=== PATIENT | female | born 1990 | race Caucasian/White ===

== ENCOUNTER 2017-11-09 17:08 | Emergency (ER) | payer SELFPAY ==
[~2017-11-09] VITALS: Ht 167.6 cm; Wt 72.0 kg
[2017-11-09] MEDS ORDERED: SODIUM CHLOR 0.9% 1000 ML INJ 1,000 ML IV ONE (17:15)
[2017-11-09] MEDS ORDERED: KETOROLAC TROMETHAMINE 30 MG/ML (IVP) VIAL IV PUSH ONE (17:15)
[2017-11-09 17:18] VITALS: BP 135/93; PULSE 90; RESP 16; TEMP 98.4; O2SAT 99
--- NOTE | 2017-11-09 17:22 | PD ---
HPI Chief Complaint: Back pain, nausea vomiting Time Seen by Provider: 17:11 Travel History International Travel<30 days: No Contact w/Intl Traveler<30days: No Traveled to known affect area: No History of Present Illness HPI 27-year-old female complains of back pain, low abdominal pain, nausea vomiting. Patient states that she started having low back pain and low abdominal pain 3 days ago. Patient states the pain and cramping pain localized to lower abdomen and mid back area. Patient denies any pain radiation. Patient started having nausea vomiting today. Patient denies any fever chills. Patient states that she has intermittent dysuria and frequency for the past 3 days. Patient denies any vaginal discharge or bleeding. Patient has Mirena in place. Patient denies any recent injury. EMS was called. Patient was given IV fluids and Zofran [address] IV [address] the way to the ED. PFSH Social History Tobacco Use: No Allergies-Medications (Allergen,Severity, Reaction): Coded Allergies: cephalexin (Verified Allergy, Intermediate, 11/09/17) latex (Verified Allergy, Unknown, 11/09/17) Reported Meds & Prescriptions Reported Meds & Active Scripts Active Robaxin (Methocarbamol) 750 Mg Tab 750 Mg PO QID Mobic (Meloxicam) 15 Mg Tab 15 Mg PO DAILY Phenergan (Promethazine HCl) 25 Mg Tablet 25 Mg PO Q6H PRN Zofran Odt (Ondansetron Odt) 4 Mg Tab 4 Mg SL Q6HR PRN Review of Systems General / Constitutional: No: Fever Eyes: No: Visual changes HENT: No: Headaches Cardiovascular: No: Chest Pain or Discomfort Respiratory: No: Shortness of Breath Gastrointestinal: Positive: Nausea, Vomiting, Abdominal Pain Genitourinary: No: Dysuria Musculoskeletal: No: Pain Skin: No Rash Neurologic: No: Weakness Psychiatric: No: Depression Endocrine: No: Polydipsia Hematologic/Lymphatic: No: Easy Bruising Physical Exam Narrative GENERAL: Well-nourished, well-developed patient. SKIN: Focused skin assessment warm/dry. HEAD: Normocephalic. EYES: No scleral icterus. No injection or drainage. NECK: Supple, trachea midline. No JVD or lymphadenopathy. CARDIOVASCULAR: Regular rate and rhythm without murmurs, gallops, or rubs. RESPIRATORY: Breath sounds equal bilaterally. No accessory muscle use. GASTROINTESTINAL: Abdomen soft, nondistended. Patient has moderate diffuse tenderness in lower abdomen. No rebound tenderness. No mass. MUSCULOSKELETAL: No cyanosis, or edema. BACK: Positive right CVA tenderness. Moderate diffuse tenderness over lumbar area. Negative straight leg raising. Neurologic exam normal. Data Data Last Documented VS Vital Signs Date Time Temp Pulse Resp B/P (MAP) Pulse Ox O2 Delivery O2 Flow Rate FiO2 11/09/17 20:16 89 16 112/79 (90) 99 11/09/17 17:18 98.4 Room Air Orders Orders Sodium Chlor 0.9% 1000 Ml Inj (Ns 1000 M (11/09/17 17:15) Ketorolac Inj (Toradol Inj) (11/09/17 17:15) Complete Blood Count With Diff (11/09/17 17:14) Comprehensive Metabolic Panel (11/09/17 17:14) Lipase (11/09/17 17:14) Urinalysis - C+S If Indicated (11/09/17 17:14) Beta Hcg (Quant/Titer) (11/09/17 17:14) Ct Abd/Pel W Iv Contrast(Rout) (11/09/17 17:14) Iv Access Insert/Monitor (11/09/17 17:14) Ecg Monitoring (11/09/17 17:14) Oximetry (11/09/17 17:14) Ed Urine Pregnancytest Poc (11/09/17 17:14) Metoclopramide Inj (Reglan Inj) (11/09/17 18:15) Diphenhydramine Inj (Benadryl Inj) (11/09/17 18:15) Iohexol 350 Inj (Omnipaque 350 Inj) (11/09/17 18:40) Ed Discharge Order (11/09/17 19:38) Labs Laboratory Tests Test 11/09/17 17:20 11/09/17 17:40 White Blood Count 5.5 TH/MM3 Red Blood Count 4.82 MIL/MM3 Hemoglobin 15.3 GM/DL Hematocrit 44.2 % Mean Corpuscular Volume 91.6 FL Mean Corpuscular Hemoglobin 31.6 PG Mean Corpuscular Hemoglobin Concent 34.5 % Red Cell Distribution Width 13.7 % Platelet Count 201 TH/MM3 Mean Platelet Volume 7.3 FL Neutrophils (%) (Auto) 76.7 % Lymphocytes (%) (Auto) 14.8 % Monocytes (%) (Auto) 7.6 % Eosinophils (%) (Auto) 0.4 % Basophils (%) (Auto) 0.5 % Neutrophils # (Auto) 4.3 TH/MM3 Lymphocytes # (Auto) 0.8 TH/MM3 Monocytes # (Auto) 0.4 TH/MM3 Eosinophils # (Auto) 0.0 TH/MM3 Basophils # (Auto) 0.0 TH/MM3 CBC Comment DIFF FINAL Differential Comment Blood Urea Nitrogen 7 MG/DL Creatinine 0.73 MG/DL Random Glucose 113 MG/DL Total Protein 8.5 GM/DL Albumin 4.2 GM/DL Calcium Level 9.5 MG/DL Alkaline Phosphatase 147 U/L Aspartate Amino Transf (AST/SGOT) 345 U/L Alanine Aminotransferase (ALT/SGPT) 114 U/L Total Bilirubin 2.6 MG/DL Sodium Level 132 MEQ/L Potassium Level 3.5 MEQ/L Chloride Level 97 MEQ/L Carbon Dioxide Level 20.3 MEQ/L Anion Gap 15 MEQ/L Estimat Glomerular Filtration Rate 94 ML/MIN Lipase 293 U/L Human Chorionic Gonadotropin, Quant LESS THAN 1 MIU/ML Urine Collection Type CLEAN CATCH Urine Color DARK-YELLOW Urine Turbidity CLEAR Urine pH 6.5 Urine Specific [place] 1.025 Urine Protein 100 mg/dL Urine Glucose (UA) NEG mg/dL Urine Ketones 40 mg/dL Urine Occult Blood SMALL Urine Nitrite POS Urine Bilirubin SMALL Urine Urobilinogen 1.0 MG/DL Urine Leukocyte Esterase TRACE Urine RBC 0-3 /hpf Urine WBC 0-2 /hpf Urine Squamous Epithelial Cells 6-8 /hpf Urine Bacteria OCC /hpf Microscopic Urinalysis Comment CULT NOT INDICATED Urine Collection Time 17:40 [facility] Medical Decision Making Medical Screen Exam Complete: Yes Emergency Medical Condition: Yes Interpretation(s) 18 10 PM. CBC WBC 5.5. 76 neutrophil. Sodium 132. Bicarb 20.3. Total bili 2.6. AST 345. ALT 114. Alkaline phosphatase 147. Beta-hCG negative. UA positive for ketones small blood positive nitrite positive for bilirubin. [address] scan of the abdomen and pelvis negative acute pathology. Fatty liver. Differential Diagnosis Differential diagnosis including cholecystitis, nephrolithiasis, pyelonephritis , colitis, bowel obstruction, ovarian cyst, ovarian torsion, ectopic . Narrative Course 27-year-old female with low abdominal pain and right flank antonieta And nausea vomiting. Normal saline solution 1 L IV bolus. Zofran 4 mg IV. Toradol 30 mg IV. Reglan 10 mg IV. Benadryl 25 mg IV. Diagnosis Primary Impression: Abdominal pain Qualified Codes: R10.30 - Lower abdominal pain, unspecified Additional Impressions: Transaminitis Gastroenteritis Patient Instructions: General Instructions Additional Instructions: Take medications as directed. Follow-up with personal physician. Return if worse. Follow-up with a project manager entertainment and media. Med/Other Pt SpecificInfo: Prescription(s) given Scripts Methocarbamol (Robaxin) 750 Mg Tab 750 MG PO QID for Muscle Spasm, #40 TAB 0 Refills Prov: Beni Doll MD 11/09/17 Meloxicam (Mobic) 15 Mg Tab 15 MG PO DAILY for Pain, #20 TAB 0 Refills Prov: Beni Doll MD 11/09/17 Promethazine (Phenergan) 25 Mg Tablet 25 MG PO Q6H Y for NAUSEA OR VOMITING, #12 TAB 0 Refills Prov: Beni Doll MD 11/09/17 Ondansetron Odt (Zofran Odt) 4 Mg Tab 4 MG SL Q6HR Y for Nausea/Vomiting, #12 TAB 0 Refills Prov: Beni Doll MD 11/09/17 Disposition: 01 DISCHARGE HOME Condition: Stable Beni Doll MD Nov 09, 2017 17:22
[2017-11-09 17:33] LABS: AUTOMATED NEUTROPHIL # 4.3 TH/MM3 (1.8-7.7); BASOPHIL % 0.5 % (0.0-2.0); EOSINOPHIL % 0.4 % (0.0-4.0); HEMATOCRIT 44.2 % (35.0-46.0); HEMOGLOBIN 15.3 GM/DL (11.6-15.3); LYMPH % 14.8 % (9.0-44.0); LYMPHOCYTE # 0.8 TH/MM3 (1.0-4.8); MEAN CELL VOLUME 91.6 FL (80.0-100.0); MEAN CORPUSCULAR HEMOGLOBIN 31.6 PG (27.0-34.0); MEAN CORPUSCULAR HGB CONC 34.5 % (32.0-36.0); MEAN PLATELET VOLUME 7.3 FL (7.0-11.0); MONO % 7.6 % (0.0-8.0); MONOCYTE # 0.4 TH/MM3 (0-0.9); NEUT % 76.7 % (16.0-70.0); PLATELET COUNT 201 TH/MM3 (150-450); RED BLOOD COUNT 4.82 MIL/MM3 (4.00-5.30); RED CELL DISTRIBUTION WIDTH 13.7 % (11.6-17.2); WHITE BLOOD COUNT 5.5 TH/MM3 (4.0-11.0)
[2017-11-09 17:45] LABS: CHLORIDE 97 MEQ/L (98-107); SODIUM (NA) 132 MEQ/L (136-145)
[2017-11-09 17:48] LABS: ALBUMIN 4.2 GM/DL (3.4-5.0); BICARBONATE 20.3 MEQ/L (21.0-32.0); CALCIUM 9.5 MG/DL (8.5-10.1)
[2017-11-09 17:49] LABS: BLOOD, URINE SMALL (NEG); GLUCOSE,URINE NEG (NEG); KETONE, URINE 40 mg/dL (NEG); NITRITE,URINE POS (NEG); PH, URINE 6.5 (5.0-8.5); URINE LEUKOCYTE ESTERASE TRACE (NEG)
[2017-11-09 17:49] LABS: BLOOD UREA NITROGEN 7 MG/DL (7-18); GLUCOSE,RANDOM 113 MG/DL (74-106)
[2017-11-09 17:51] LABS: ALT (GPT) 114 U/L (10-53); AST (GOT) 345 U/L (15-37); CREATININE 0.73 MG/DL (0.50-1.00); GLOMERULAR FILTRATION RATE 94 ML/MIN (>89)
[2017-11-09 17:53] LABS: TOTAL BILIRUBIN ADULT 2.6 MG/DL (0.2-1.0); TOTAL PROTEIN 8.5 GM/DL (6.4-8.2)
[2017-11-09 17:54] LABS: ALKALINE PHOSPHATASE 147 U/L (45-117)
[2017-11-09 17:59] LABS: BILIRUBIN, URINE SMALL (NEG)
[2017-11-09 18:00] LABS: URINE COLOR DARK-YELLOW (YELLW/STRAW)
[2017-11-09 18:02] LABS: BACTERIA, URINE OCC /hpf; RBC, URINE 0-3 /hpf (0-3); WBC, URINE 0-2 /hpf (0-5)
[2017-11-09] MEDS ORDERED: METOCLOPRAMIDE HCL 10 MG/2 ML VIAL IV PUSH ONE (18:15)
[2017-11-09] MEDS ORDERED: diphenhydrAMINE HCL 50 MG/ML VIAL IV PUSH ONE (18:15)
[2017-11-09] MEDS ORDERED: IOHEXOL 350 MG/ML 10 ML VIAL (for RAD DIAG) IVCONTRAST ONE (18:40)
--- NOTE | 2017-11-09 18:59 | RADRPT ---
EXAM DATE/TIME: 11/09/2017 18:35 [place] COMPARISON: No previous studies available for comparison. INDICATIONS : Lower abdominal pain radiating to mid back and painful urination. IV CONTRAST: 95 cc Omnipaque 350 (iohexol) IV ORAL CONTRAST: No oral contrast ingested. RADIATION DOSE: 6.75 CTDIvol (mGy) MEDICAL HISTORY : None SURGICAL HISTORY : None. ENCOUNTER: Initial ACUITY: 3 days PAIN SCALE: 5/10 LOCATION: lower quadrant TECHNIQUE: Volumetric scanning of the abdomen and pelvis was performed. Using automated exposure control and ad justment of the mA and/or kV according to patient size, radiation dose was kept as low as reasonably achievable to obtain optimal diagnostic quality images. DICOM format image data is available electro nically for review and comparison. FINDINGS: Lung bases are clear. Diffuse fatty infiltration of the liver. Spleen, adrenals, kidneys and pancreas unremarkable. No calcified gallstones. Intrauterine device present. No pelvic masses or free fluid. No acute bony abnormalities. CONCLUSION: 1. No acute findings. Diffuse fatty liver. Intrauterine device present. Keith Carbone MD on November 09, 2017 at 18:54 Board Certified Radiologist. This report was verified electronically.
[2017-11-09] MEDS ORDERED: ZOFR4TAB3 SL (19:20)
[2017-11-09] MEDS ORDERED: ROBA750T PO (19:20)
[2017-11-09] MEDS ORDERED: MOBI15TA PO (19:20)
[2017-11-09] MEDS ORDERED: PROM25TA10 PO (19:20)
[2017-11-09 20:16] VITALS: BP 112/79
== END 2017-11-09 20:30 | disposition home or self-care (01) ==
LOC: PHED 17:08
DX: K52.9 Noninfective gastroenteritis and colitis, unspecified (principal); R74.0 Nonspecific elevation of levels of transaminase and lactic acid dehydrogenase [LDH]; K76.0 Fatty (change of) liver, not elsewhere classified; R30.0 Dysuria; R35.0 Frequency of micturition; Z79.899 Other long term (current) drug therapy
CPT/HCPCS: 74177; 80053; 81001; 83690; 84702; 84703; 85025; 96361; 96374; 96375; 99284; J1200; J1885; J2765; J7030; Q9967

== ENCOUNTER 2018-02-07 16:47 | Inpatient (IN) ==
[2018-02-07 18:36] LABS: Bilirubin,Urine Moderate (Negative); Clarity,Urine Slightly Cloudy (Clear); Color,Urine Yellow (Yellw/Straw); Glucose,Urine (UA) Negative (Negative); Leukocyte Esterase,Urine Negative (Negative); Nitrite,Urine Negative (Negative); Specific Gravity,Urine Greater/Equal 1.030 (1.002-1.035)
[2018-02-07 18:44] LABS: Ictotest,Urine Positive (Negative)
[2018-02-07 18:47] LABS: RBC,Urine 0-3 /hpf (0-3)
[2018-02-07 18:51] LABS: Squamous Epithelial Cell,Urine Greater than 10 /hpf (0-5)
[2018-02-07 18:52] LABS: Bacteria,Urine Few /hpf; Hyaline Casts,Urine 0-3 /lpf (0-3); Mucus,Urine Few /lpf (Occasional)
[2018-02-07] MEDS ORDERED: Sod Chloride 0.9% Inj 1,000 ML IV.SIG ONE ×3 (20:22→21:54)
--- NOTE | 2018-02-07 20:56 | XR ---
EXAM DATE: 02/07/2018 8:54 PM EDT AGE/SEX: 27 years / Female INDICATIONS: Altered mental status. CLINICAL DATA: This is the patient's initial encounter. Patient reports that signs and symptoms have been present for 1 day and indicates a pain score of Nonresponsive. MEDICAL/SURGICAL HISTORY: None. None. COMPARISON: No prior exams available for comparison. FINDINGS: A single AP view of the chest demonstrates the lungs to be symmetrically aerated without evidence of mass, infiltrate or effusion. The cardiomediastinal contours are unremarkable. Osseous structures a re intact. Nipple rings CONCLUSION: Negative for acute process Electronically signed by: Julien Sullivan MD 02/07/2018 8:55 PM EDT
[2018-02-07 21:09] LABS: Baso % (Auto) 0.1 % (0.0-2.0); Eos % (Auto) 0.1 % (0.0-4.0); Hematocrit 48.9 % (35.0-46.0); Hemoglobin 16.5 gm/dL (11.6-15.3); Lymph # (Auto) 0.9 th/mm3 (1.0-4.8); Lymph % (Auto) 4.1 % (9.0-44.0); Mean Corpuscular HGB Conc 33.8 % (32.0-36.0); Mean Corpuscular Hemoglobin 35.2 pg (27.0-34.0); Mean Corpuscular Volume 104.2 fL (80.0-100.0); Mean Platelet Volume 8.1 fL (7.0-11.0); Mono # (Auto) 0.7 th/mm3 (0.0-0.9); Neut # (Auto) 20.4 th/mm3 (1.8-7.7); Neut % (Auto) 92.7 % (16.0-70.0); Platelet Count 668 th/mm3 (150-450); Red Blood Count 4.69 mil/mm3 (4.00-5.30); Red Cell Distribution Width 14.7 % (11.6-17.2)
[2018-02-07 21:12] LABS: Chloride 83 meq/L (98-107); Potassium 3.4 meq/L (3.5-5.1); Sodium 127 meq/L (136-145)
[2018-02-07 21:16] LABS: Albumin 4.6 g/dL (3.4-5.0); Anion Gap 39 meq/L (5-15); Blood Urea Nitrogen 8 mg/dL (7-18); Carbon Dioxide 5.3 meq/L (21.0-32.0); Glucose,Random 248 mg/dL (74-106)
[2018-02-07 21:19] LABS: Alanine Aminotransferase 94 U/L (10-53); Aspartate Aminotransferase 272 U/L (15-37); Glomerular Filtration Rate 38 mL/min (>89)
[2018-02-07 21:20] LABS: Total Protein 10.3 g/dL (6.4-8.2)
[2018-02-07 21:21] LABS: Alkaline Phosphatase 288 U/L (45-117); Lipase 9618 U/L (73-393)
--- NOTE | 2018-02-07 21:42 | ED ---
HPI General Chief complaint: Nausea/Vomiting/Diarrhea Stated complaint: Weakness/Nausea/Vomiting/Hard to Breathe Source: patient Mode of arrival: ambulatory Limitations: altered mental status History of Present Illness HPI Narrative: patient started blaming the use of propanolol as the reason she was feeling the way she was...which included, anxious, palpitations, as well as n/v/d with abd crampy pain MD complaint: nausea, vomiting and diarrhea Onset (ago): hour(s) (2) Description of Vomiting: watery Description of Diarrhea: watery Associated Abdominal Pain: Yes Radiation: does not radiate Context: possible food poisoning and new medication Associated symptoms: palpitation Related Data Home Medications Medication Instructions Recorded Confirmed levonorgestrel [Mirena] 02/07/18 propranolol 10 mg PO BID 02/07/18 02/10/18 Allergies Allergy/AdvReac Type Severity Reaction Status Date / Time cephalexin Allergy Intermediate UNKNOWN Verified 02/07/18 17:01 latex Allergy Unknown UNKNONW Verified 02/07/18 17:01 Review of Systems ROS Unobtainable unobtainable due to mental status PMFSH Medical History Medical History Anxiety (Acute) Depression (Acute) Occasional tremors (Acute) Seizures (Acute) Surgical History Surgical History History of placement of ear tubes (Acute) Social History Social History Substance History: No History of Abuse Smoking Status: Heavy tobacco smoker Tobacco Type: Cigarettes How Often Do You Have a Drink Containing Alcohol: 4 or more times a week Recent Travel in [facility] within the Last 8 Weeks: No Recent Out of Country Travel within the Last 8 Weeks: No Exam Narrative Exam Narrative: GENERAL: hyperventilating in apparent distress. SKIN: Warm and dry. HEAD: Atraumatic. Normocephalic. EYES: Pupils equal and round. No scleral icterus. No injection or drainage. ENT: No nasal bleeding or discharge. Mucous membranes dry NECK: Trachea midline. No JVD. CARDIOVASCULAR: Regular rhythm, tachycardic rate. no rubs or gallops RESPIRATORY: No accessory muscle use. Clear to auscultation. Breath sounds equal bilaterally. GASTROINTESTINAL: Abdomen soft, diffuse ttp , nondistended. No rebound or guarding MUSCULOSKELETAL: Extremities without clubbing, cyanosis, or edema. No obvious deformities. NEUROLOGICAL: Awake and alert. No obvious cranial nerve deficits. Motor grossly within normal limits. Five out of 5 muscle strength in the arms and legs. Normal speech. PSYCHIATRIC: Agitated, hyperventilating, difficulty focusing to answer questions Course Initial Documented Vital Signs Temperature 97.5 F L 02/07/18 16:55 Pulse Rate 140 H 02/07/18 16:55 Respiratory Rate 18 02/07/18 16:55 Blood Pressure 130/87 02/07/18 16:55 Pulse Oximetry 99 02/07/18 16:55 Last Documented Vital Signs Temperature 98.2 F 02/14/18 20:37 Pulse Rate 91 H 02/14/18 20:37 Respiratory Rate 18 02/14/18 20:37 Blood Pressure 114/72 02/14/18 20:37 Pulse Oximetry 96 02/14/18 20:37 Medical Decision Making MDM Narrative Medical decision making narrative: Aggregate critical care time was 60 minutes. Time to perform other separately billable procedures was not included in the critical care time. My time did not include minutes spent treating any other patients simultaneously or on activities that did not directly contribute to the patient's treatment. The services I provided to this patient were to treat and/or prevent clinically significant deterioration that could result in: [severe acidosis and ] I provided critical care services requiring my management, as noted below: Chart data review, documentation time, medication orders and management, vital sign assessments/reviewing monitor data, ordering and reviewing lab tests, ordering and interpreting/reviewing x-rays and diagnostic studies, care of the patient and discussion of the patient with the admitting physicians. Differential Diagnosis Differential Diagnosis: Dehydration versus pancreatitis versus hepatitis versus enteritis versus electrolyte abnormalities POC Test Results POC Urine Results: Negative Lab Data Lab results reviewed: Yes I reviewed the patient's lab results. Lab results narrative: CBC shows a leukocytosis of 22,000 with a left shift with 93%, elevated platelet count of 668,000 elevated MCV consistent with megaloblastic which is probably consistent with the patient's history of alcohol use Hemoconcentrated with a hemoglobin of 16.5/48.9 Normal TSH screening Negative hCG quant Patient has prerenal azotemia with a GFR of 38 creatinine 1.6 Head elevated AST of 272 with elevated ALT of 94 consistent with alcoholic hepatitis pattern Patient has hyponatremia 127 A bicarb of 5 Lipase consistent with pack otitis [place] 9618 ua is c/w uti Case was discussed at length with sponge clipper Dr. Michel, patient will be transferred to the main ICU, sponge clipper agrees with IV fluid resuscitation, bicarb administration and bicarb drip Result diagrams: 02/10/18 03:24 02/14/18 07:12 Lab Results 02/07/18 02/07/18 02/07/18 Range/Units 18:05 18:05 20:50 CBC w Diff Auto diff final WBC 22.0 H (4.0-11.0) th/mm3 RBC 4.69 (4.00-5.30) mil/mm3 Hgb 16.5 H (11.6-15.3) gm/dL Hct 48.9 H (35.0-46.0) % MCV 104.2 H (80.0-100.0) fL MCH 35.2 H (27.0-34.0) pg MCHC 33.8 (32.0-36.0) % RDW 14.7 (11.6-17.2) % Plt Count 668 H (150-450) th/mm3 MPV 8.1 (7.0-11.0) fL Prelim Diff (Auto) Neut % (Auto) 92.7 H (16.0-70.0) % Lymph % (Auto) 4.1 L (9.0-44.0) % Pitkin % (Auto) 3.0 (0.0-8.0) % Eos % (Auto) 0.1 (0.0-4.0) % Baso % (Auto) 0.1 (0.0-2.0) % Neut # (Auto) 20.4 H (1.8-7.7) th/mm3 Lymph # (Auto) 0.9 L (1.0-4.8) th/mm3 Pitkin # (Auto) 0.7 (0.0-0.9) th/mm3 Eos # (Auto) 0.0 (0.0-0.4) th/mm3 Baso # (Auto) 0.0 (0.0-0.2) th/mm3 WBC Differential . Seg Neuts % (Manual) (16-70) % Band Neuts % (Manual) (0-6) % Lymphocytes % (Manual) (9-44) % Monocytes % (Manual) (0-8) % Abs Neuts (Manual) (1.8-7.7) th/mm3 Differential Comment Platelet Estimate (Normal) Platelet Morphology (Normal) Puncture Site Patient Temperature O2 Saturation (90-100) % ABG pH (7.380-7.420) ABG pCO2 (38-42) mmHg ABG pO2 (61-120) mmHg ABG HCO3 (22-26) mmol/L ABG O2 Content (12.0-20.0) Vol % ABG Base Excess (-2-2) mmol/L ABG Methemoglobin (0-2) % Aki Test Hemoglobin (12.0-16.0) G/DL Carboxyhemoglobin (0-4) % O2 Delivery Device Inspired O2 % Critical Value Sodium (136-145) meq/L Potassium (3.5-5.1) meq/L Chloride (98-107) meq/L Carbon Dioxide (21.0-32.0) meq/L Anion Gap (5-15) meq/L BUN (7-18) mg/dL Creatinine (0.50-1.00) mg/dL Estimated GFR (>89) mL/min POC Glucose (68-110) mg/dl Random Glucose (74-106) mg/dL Osmolality (275-295) mosm/kg Lactic Acid (0.4-2.0) mmol/L Calcium (8.5-10.1) mg/dL Phosphorus (2.5-4.9) mg/dL Magnesium (1.5-2.5) mg/dL Total Bilirubin (0.2-1.0) mg/dL Direct Bilirubin (0.0-0.2) mg/dL Indirect Bilirubin (0.0-0.8) mg/dL AST (15-37) U/L ALT (10-53) U/L Alkaline Phosphatase (45-117) U/L Ammonia (11-32) mcmol/L Total Creatine Kinase (26-192) U/L CK-MB (CK-2) (0.5-3.6) ng/mL CK-MB (CK-2) % (0.0-4.0) % Total Protein (6.4-8.2) g/dL Albumin (3.4-5.0) g/dL Triglycerides (42-150) mg/dL Lipase (73-393) U/L Beta-Hydroxybutyric Acd (0.00-0.39) mmol/L TSH (0.358-3.740) uIU/mL Urine Color Yellow (Yellw/Straw) Urine Clarity Slightly cloudy (Clear) Urine pH 6.0 (5.0-8.5) Ur Specific Marty Greater/equal 1.030 (1.002-1.035) Urine Protein 300 or greater H (Neg-Trace) mg/dL Urine Glucose (UA) Negative (Negative) mg/dL Urine Ketones 80 or greater (Negative) mg/dL Urine Occult Blood Large H (Negative) Urine Nitrate Negative (Negative) Urine Bilirubin Moderate H (Negative) Urine Ictotest Positive H (Negative) Urine Urobilinogen 1.0 (Less than 2) mg/dL Ur Leukocyte Esterase Negative (Negative) Urine RBC 0-3 (0-3) /hpf Urine WBC 5-8 H (0-5) /hpf Ur Squamous Epith Cells Greater than 10 H (0-5) /hpf Urine Bacteria Few H (None) /hpf Hyaline Casts 0-3 (0-3) /lpf Urine Mucus Few H (Occasional) /lpf Micro UA Comment Culture not ind Urine Culture Comments Culture not ind Nasal Screen MRSA (PCR) (Negative) Stl C.difficile Tox PCR (Negative) St C. diff Tox Epid 027 (Negative) Salicylates (2.8-20.0) mg/dL Urine Opiates Screen Neg (Neg) Acetaminophen (10.0-30.0) mcg/mL Ur Barbiturates Screen Neg (Neg) Ur Amphetamines Screen Neg (Neg) U Benzodiazepines Scrn Neg (Neg) Urine Cocaine Screen Neg (Neg) U Cannabinoids Screen Neg (Neg) Serum Alcohol (0-5) mg/dL Hepatitis A IgM Ab (Nonreactive) Hep Bs Antigen (Nonreactive) Hep B Core IgM Ab (Nonreactive) Hep C IgG Ab (Nonreactive) Misc Test Result 02/07/18 02/07/18 02/07/18 Range/Units 20:50 20:50 22:10 CBC w Diff WBC (4.0-11.0) th/mm3 RBC (4.00-5.30) mil/mm3 Hgb (11.6-15.3) gm/dL Hct (35.0-46.0) % MCV (80.0-100.0) fL MCH (27.0-34.0) pg MCHC (32.0-36.0) % RDW (11.6-17.2) % Plt Count (150-450) th/mm3 MPV (7.0-11.0) fL Prelim Diff (Auto) Neut % (Auto) (16.0-70.0) % Lymph % (Auto) (9.0-44.0) % Pitkin % (Auto) (0.0-8.0) % Eos % (Auto) (0.0-4.0) % Baso % (Auto) (0.0-2.0) % Neut # (Auto) (1.8-7.7) th/mm3 Lymph # (Auto) (1.0-4.8) th/mm3 Pitkin # (Auto) (0.0-0.9) th/mm3 Eos # (Auto) (0.0-0.4) th/mm3 Baso # (Auto) (0.0-0.2) th/mm3 WBC Differential Seg Neuts % (Manual) (16-70) % Band Neuts % (Manual) (0-6) % Lymphocytes % (Manual) (9-44) % Monocytes % (Manual) (0-8) % Abs Neuts (Manual) (1.8-7.7) th/mm3 Differential Comment Platelet Estimate (Normal) Platelet Morphology (Normal) Puncture Site Patient Temperature O2 Saturation (90-100) % ABG pH (7.380-7.420) ABG pCO2 (38-42) mmHg ABG pO2 (61-120) mmHg ABG HCO3 (22-26) mmol/L ABG O2 Content (12.0-20.0) Vol % ABG Base Excess (-2-2) mmol/L ABG Methemoglobin (0-2) % Aki Test Hemoglobin (12.0-16.0) G/DL Carboxyhemoglobin (0-4) % O2 Delivery Device Inspired O2 % Critical Value Sodium 127 L (136-145) meq/L Potassium 3.4 L (3.5-5.1) meq/L Chloride 83 L (98-107) meq/L Carbon Dioxide 5.3 L (21.0-32.0) meq/L Anion Gap 39 H (5-15) meq/L BUN 8 (7-18) mg/dL Creatinine 1.60 H (0.50-1.00) mg/dL Estimated GFR 38 L (>89) mL/min POC Glucose (68-110) mg/dl Random Glucose 248 H (74-106) mg/dL Osmolality (275-295) mosm/kg Lactic Acid 3.2 H (0.4-2.0) mmol/L Calcium 9.0 (8.5-10.1) mg/dL Phosphorus (2.5-4.9) mg/dL Magnesium (1.5-2.5) mg/dL Total Bilirubin 2.4 H (0.2-1.0) mg/dL Direct Bilirubin (0.0-0.2) mg/dL Indirect Bilirubin (0.0-0.8) mg/dL AST 272 H (15-37) U/L ALT 94 H (10-53) U/L Alkaline Phosphatase 288 H (45-117) U/L Ammonia (11-32) mcmol/L Total Creatine Kinase (26-192) U/L CK-MB (CK-2) (0.5-3.6) ng/mL CK-MB (CK-2) % (0.0-4.0) % Total Protein 10.3 H (6.4-8.2) g/dL Albumin 4.6 (3.4-5.0) g/dL Triglycerides (42-150) mg/dL Lipase 9618 H (73-393) U/L Beta-Hydroxybutyric Acd (0.00-0.39) mmol/L TSH 1.120 (0.358-3.740) uIU/mL Urine Color (Yellw/Straw) Urine Clarity (Clear) Urine pH (5.0-8.5) Ur Specific Marty (1.002-1.035) Urine Protein (Neg-Trace) mg/dL Urine Glucose (UA) (Negative) mg/dL Urine Ketones (Negative) mg/dL Urine Occult Blood (Negative) Urine Nitrate (Negative) Urine Bilirubin (Negative) Urine Ictotest (Negative) Urine Urobilinogen (Less than 2) mg/dL Ur Leukocyte Esterase (Negative) Urine RBC (0-3) /hpf Urine WBC (0-5) /hpf Ur Squamous Epith Cells (0-5) /hpf Urine Bacteria (None) /hpf Hyaline Casts (0-3) /lpf Urine Mucus (Occasional) /lpf Micro UA Comment Urine Culture Comments Nasal Screen MRSA (PCR) (Negative) Stl C.difficile Tox PCR (Negative) St C. diff Tox Epid 027 (Negative) Salicylates 3.8 (2.8-20.0) mg/dL Urine Opiates Screen (Neg) Acetaminophen Less than 2.0 L (10.0-30.0) mcg/mL Ur Barbiturates Screen (Neg) Ur Amphetamines Screen (Neg) U Benzodiazepines Scrn (Neg) Urine Cocaine Screen (Neg) U Cannabinoids Screen (Neg) Serum Alcohol Less than 3 (0-5) mg/dL Hepatitis A IgM Ab (Nonreactive) Hep Bs Antigen (Nonreactive) Hep B Core IgM Ab (Nonreactive) Hep C IgG Ab (Nonreactive) Misc Test Result 02/08/18 02/08/18 02/08/18 Range/Units 03:55 05:14 05:40 CBC w Diff WBC (4.0-11.0) th/mm3 RBC (4.00-5.30) mil/mm3 Hgb (11.6-15.3) gm/dL Hct (35.0-46.0) % MCV (80.0-100.0) fL MCH (27.0-34.0) pg MCHC (32.0-36.0) % RDW (11.6-17.2) % Plt Count (150-450) th/mm3 MPV (7.0-11.0) fL Prelim Diff (Auto) Neut % (Auto) (16.0-70.0) % Lymph % (Auto) (9.0-44.0) % Pitkin % (Auto) (0.0-8.0) % Eos % (Auto) (0.0-4.0) % Baso % (Auto) (0.0-2.0) % Neut # (Auto) (1.8-7.7) th/mm3 Lymph # (Auto) (1.0-4.8) th/mm3 Pitkin # (Auto) (0.0-0.9) th/mm3 Eos # (Auto) (0.0-0.4) th/mm3 Baso # (Auto) (0.0-0.2) th/mm3 WBC Differential Seg Neuts % (Manual) (16-70) % Band Neuts % (Manual) (0-6) % Lymphocytes % (Manual) (9-44) % Monocytes % (Manual) (0-8) % Abs Neuts (Manual) (1.8-7.7) th/mm3 Differential Comment Platelet Estimate (Normal) Platelet Morphology (Normal) Puncture Site Right radial Patient Temperature 98.6 O2 Saturation 96 (90-100) % ABG pH 7.35 L (7.380-7.420) ABG pCO2 11 L* (38-42) mmHg ABG pO2 122 H (61-120) mmHg ABG HCO3 6 L* (22-26) mmol/L ABG O2 Content 19.3 (12.0-20.0) Vol % ABG Base Excess -19.1 L (-2-2) mmol/L ABG Methemoglobin 1.1 (0-2) % Aki Test Present Hemoglobin 14.2 (12.0-16.0) G/DL Carboxyhemoglobin 1.8 (0-4) % O2 Delivery Device Room air Inspired O2 % Critical Value Yes Sodium 137 D (136-145) meq/L Potassium 3.0 L (3.5-5.1) meq/L Chloride 99 D (98-107) meq/L Carbon Dioxide 8.1 L (21.0-32.0) meq/L Anion Gap 30 H (5-15) meq/L BUN 6 L (7-18) mg/dL Creatinine 1.16 H (0.50-1.00) mg/dL Estimated GFR 55 L (>89) mL/min POC Glucose (68-110) mg/dl Random Glucose 159 H (74-106) mg/dL Osmolality (275-295) mosm/kg Lactic Acid (0.4-2.0) mmol/L Calcium 7.6 L D (8.5-10.1) mg/dL Phosphorus 0.7 L (2.5-4.9) mg/dL Magnesium 1.7 (1.5-2.5) mg/dL Total Bilirubin 3.6 H (0.2-1.0) mg/dL Direct Bilirubin (0.0-0.2) mg/dL Indirect Bilirubin (0.0-0.8) mg/dL AST 161 H (15-37) U/L ALT 55 H (10-53) U/L Alkaline Phosphatase 190 H (45-117) U/L Ammonia (11-32) mcmol/L Total Creatine Kinase 203 H (26-192) U/L CK-MB (CK-2) 4.1 H (0.5-3.6) ng/mL CK-MB (CK-2) % 2.0 (0.0-4.0) % Total Protein 7.1 D (6.4-8.2) g/dL Albumin 3.1 L D (3.4-5.0) g/dL Triglycerides (42-150) mg/dL Lipase (73-393) U/L Beta-Hydroxybutyric Acd 13.40 H (0.00-0.39) mmol/L TSH (0.358-3.740) uIU/mL Urine Color (Yellw/Straw) Urine Clarity (Clear) Urine pH (5.0-8.5) Ur Specific Marty (1.002-1.035) Urine Protein (Neg-Trace) mg/dL Urine Glucose (UA) (Negative) mg/dL Urine Ketones (Negative) mg/dL Urine Occult Blood (Negative) Urine Nitrate (Negative) Urine Bilirubin (Negative) Urine Ictotest (Negative) Urine Urobilinogen (Less than 2) mg/dL Ur Leukocyte Esterase (Negative) Urine RBC (0-3) /hpf Urine WBC (0-5) /hpf Ur Squamous Epith Cells (0-5) /hpf Urine Bacteria (None) /hpf Hyaline Casts (0-3) /lpf Urine Mucus (Occasional) /lpf Micro UA Comment Urine Culture Comments Nasal Screen MRSA (PCR) Not detected (Negative) Stl C.difficile Tox PCR (Negative) St C. diff Tox Epid 027 (Negative) Salicylates (2.8-20.0) mg/dL Urine Opiates Screen (Neg) Acetaminophen (10.0-30.0) mcg/mL Ur Barbiturates Screen (Neg) Ur Amphetamines Screen (Neg) U Benzodiazepines Scrn (Neg) Urine Cocaine Screen (Neg) U Cannabinoids Screen (Neg) Serum Alcohol (0-5) mg/dL Hepatitis A IgM Ab (Nonreactive) Hep Bs Antigen (Nonreactive) Hep B Core IgM Ab (Nonreactive) Hep C IgG Ab (Nonreactive) Misc Test Result 02/08/18 02/08/18 02/08/18 Range/Units 05:40 05:40 05:40 CBC w Diff WBC 14.1 H (4.0-11.0) th/mm3 RBC 4.08 (4.00-5.30) mil/mm3 Hgb 14.0 D (11.6-15.3) gm/dL Hct 41.4 (35.0-46.0) % MCV 101.5 H (80.0-100.0) fL MCH 34.5 H (27.0-34.0) pg MCHC 33.9 (32.0-36.0) % RDW 15.3 (11.6-17.2) % Plt Count 395 D (150-450) th/mm3 MPV 7.7 (7.0-11.0) fL Prelim Diff (Auto) Slide review pending Neut % (Auto) 66.0 (16.0-70.0) % Lymph % (Auto) 6.8 L (9.0-44.0) % Pitkin % (Auto) 23.3 H (0.0-8.0) % Eos % (Auto) 3.9 (0.0-4.0) % Baso % (Auto) 0.0 (0.0-2.0) % Neut # (Auto) 9.3 H (1.8-7.7) th/mm3 Lymph # (Auto) 1.0 (1.0-4.8) th/mm3 Pitkin # (Auto) 3.3 H (0.0-0.9) th/mm3 Eos # (Auto) 0.5 H (0.0-0.4) th/mm3 Baso # (Auto) 0.0 (0.0-0.2) th/mm3 WBC Differential Manual diff final Seg Neuts % (Manual) 89 H (16-70) % Band Neuts % (Manual) 7 H (0-6) % Lymphocytes % (Manual) 3 L (9-44) % Monocytes % (Manual) 1 (0-8) % Abs Neuts (Manual) 13.5 H (1.8-7.7) th/mm3 Differential Comment . Platelet Estimate Normal (Normal) Platelet Morphology Normal (Normal) Puncture Site Patient Temperature O2 Saturation (90-100) % ABG pH (7.380-7.420) ABG pCO2 (38-42) mmHg ABG pO2 (61-120) mmHg ABG HCO3 (22-26) mmol/L ABG O2 Content (12.0-20.0) Vol % ABG Base Excess (-2-2) mmol/L ABG Methemoglobin (0-2) % Aki Test Hemoglobin (12.0-16.0) G/DL Carboxyhemoglobin (0-4) % O2 Delivery Device Inspired O2 % Critical Value Sodium (136-145) meq/L Potassium (3.5-5.1) meq/L Chloride (98-107) meq/L Carbon Dioxide (21.0-32.0) meq/L Anion Gap (5-15) meq/L BUN (7-18) mg/dL Creatinine (0.50-1.00) mg/dL Estimated GFR (>89) mL/min POC Glucose (68-110) mg/dl Random Glucose (74-106) mg/dL Osmolality 309 H (275-295) mosm/kg Lactic Acid (0.4-2.0) mmol/L Calcium (8.5-10.1) mg/dL Phosphorus (2.5-4.9) mg/dL Magnesium (1.5-2.5) mg/dL Total Bilirubin (0.2-1.0) mg/dL Direct Bilirubin (0.0-0.2) mg/dL Indirect Bilirubin (0.0-0.8) mg/dL AST (15-37) U/L ALT (10-53) U/L Alkaline Phosphatase (45-117) U/L Ammonia 25 (11-32) mcmol/L Total Creatine Kinase (26-192) U/L CK-MB (CK-2) (0.5-3.6) ng/mL CK-MB (CK-2) % (0.0-4.0) % Total Protein (6.4-8.2) g/dL Albumin (3.4-5.0) g/dL Triglycerides (42-150) mg/dL Lipase (73-393) U/L Beta-Hydroxybutyric Acd (0.00-0.39) mmol/L TSH (0.358-3.740) uIU/mL Urine Color (Yellw/Straw) Urine Clarity (Clear) Urine pH (5.0-8.5) Ur Specific Marty (1.002-1.035) Urine Protein (Neg-Trace) mg/dL Urine Glucose (UA) (Negative) mg/dL Urine Ketones (Negative) mg/dL Urine Occult Blood (Negative) Urine Nitrate (Negative) Urine Bilirubin (Negative) Urine Ictotest (Negative) Urine Urobilinogen (Less than 2) mg/dL Ur Leukocyte Esterase (Negative) Urine RBC (0-3) /hpf Urine WBC (0-5) /hpf Ur Squamous Epith Cells (0-5) /hpf Urine Bacteria (None) /hpf Hyaline Casts (0-3) /lpf Urine Mucus (Occasional) /lpf Micro UA Comment Urine Culture Comments Nasal Screen MRSA (PCR) (Negative) Stl C.difficile Tox PCR (Negative) St C. diff Tox Epid 027 (Negative) Salicylates (2.8-20.0) mg/dL Urine Opiates Screen (Neg) Acetaminophen (10.0-30.0) mcg/mL Ur Barbiturates Screen (Neg) Ur Amphetamines Screen (Neg) U Benzodiazepines Scrn (Neg) Urine Cocaine Screen (Neg) U Cannabinoids Screen (Neg) Serum Alcohol (0-5) mg/dL Hepatitis A IgM Ab (Nonreactive) Hep Bs Antigen (Nonreactive) Hep B Core IgM Ab (Nonreactive) Hep C IgG Ab (Nonreactive) Misc Test Result 02/08/18 02/08/18 02/08/18 Range/Units 11:55 11:55 11:55 CBC w Diff WBC 8.4 (4.0-11.0) th/mm3 RBC 3.79 L (4.00-5.30) mil/mm3 Hgb 13.0 (11.6-15.3) gm/dL Hct 37.8 (35.0-46.0) % MCV 99.7 (80.0-100.0) fL MCH 34.2 H (27.0-34.0) pg MCHC 34.3 (32.0-36.0) % RDW 15.2 (11.6-17.2) % Plt Count 322 (150-450) th/mm3 MPV 7.7 (7.0-11.0) fL Prelim Diff (Auto) Neut % (Auto) 82.7 H (16.0-70.0) % Lymph % (Auto) 12.4 (9.0-44.0) % [place]kin % (Auto) 4.8 (0.0-8.0) % Eos % (Auto) 0.0 (0.0-4.0) % Baso % (Auto) 0.1 (0.0-2.0) % Neut # (Auto) 7.0 (1.8-7.7) th/mm3 Lymph # (Auto) 1.0 (1.0-4.8) th/mm3 [place]kin # (Auto) 0.4 (0.0-0.9) th/mm3 Eos # (Auto) 0.0 (0.0-0.4) th/mm3 Baso # (Auto) 0.0 (0.0-0.2) th/mm3 WBC Differential . Seg Neuts % (Manual) (16-70) % Band Neuts % (Manual) (0-6) % Lymphocytes % (Manual) (9-44) % Monocytes % (Manual) (0-8) % Abs Neuts (Manual) (1.8-7.7) th/mm3 Differential Comment Auto diff final Platelet Estimate (Normal) Platelet Morphology (Normal) Puncture Site Patient Temperature O2 Saturation (90-100) % ABG pH (7.380-7.420) ABG pCO2 (38-42) mmHg ABG pO2 (61-120) mmHg ABG HCO3 (22-26) mmol/L ABG O2 Content (12.0-20.0) Vol % ABG Base Excess (-2-2) mmol/L ABG Methemoglobin (0-2) % Aki Test Hemoglobin (12.0-16.0) G/DL Carboxyhemoglobin (0-4) % O2 Delivery Device Inspired O2 % Critical Value Sodium 141 (136-145) meq/L Potassium 3.2 L (3.5-5.1) meq/L Chloride 102 (98-107) meq/L Carbon Dioxide 21.2 D (21.0-32.0) meq/L Anion Gap 18 H (5-15) meq/L BUN 3 L (7-18) mg/dL Creatinine 0.65 (0.50-1.00) mg/dL Estimated GFR Greater than 89 (>89) mL/min POC Glucose (68-110) mg/dl Random Glucose 154 H (74-106) mg/dL Osmolality (275-295) mosm/kg Lactic Acid (0.4-2.0) mmol/L Calcium 7.7 L (8.5-10.1) mg/dL Phosphorus 0.3 L (2.5-4.9) mg/dL Magnesium (1.5-2.5) mg/dL Total Bilirubin (0.2-1.0) mg/dL Direct Bilirubin (0.0-0.2) mg/dL Indirect Bilirubin (0.0-0.8) mg/dL AST (15-37) U/L ALT (10-53) U/L Alkaline Phosphatase (45-117) U/L Ammonia (11-32) mcmol/L Total Creatine Kinase (26-192) U/L CK-MB (CK-2) (0.5-3.6) ng/mL CK-MB (CK-2) % (0.0-4.0) % Total Protein (6.4-8.2) g/dL Albumin (3.4-5.0) g/dL Triglycerides (42-150) mg/dL Lipase (73-393) U/L Beta-Hydroxybutyric Acd (0.00-0.39) mmol/L TSH (0.358-3.740) uIU/mL Urine Color (Yellw/Straw) Urine Clarity (Clear) Urine pH (5.0-8.5) Ur Specific Marty (1.002-1.035) Urine Protein (Neg-Trace) mg/dL Urine Glucose (UA) (Negative) mg/dL Urine Ketones (Negative) mg/dL Urine Occult Blood (Negative) Urine Nitrate (Negative) Urine Bilirubin (Negative) Urine Ictotest (Negative) Urine Urobilinogen (Less than 2) mg/dL Ur Leukocyte Esterase (Negative) Urine RBC (0-3) /hpf Urine WBC (0-5) /hpf Ur Squamous Epith Cells (0-5) /hpf Urine Bacteria (None) /hpf Hyaline Casts (0-3) /lpf Urine Mucus (Occasional) /lpf Micro UA Comment Urine Culture Comments Nasal Screen MRSA (PCR) (Negative) Stl C.difficile Tox PCR (Negative) St C. diff Tox Epid 027 (Negative) Salicylates (2.8-20.0) mg/dL Urine Opiates Screen (Neg) Acetaminophen (10.0-30.0) mcg/mL Ur Barbiturates Screen (Neg) Ur Amphetamines Screen (Neg) U Benzodiazepines Scrn (Neg) Urine Cocaine Screen (Neg) U Cannabinoids Screen (Neg) Serum Alcohol (0-5) mg/dL Hepatitis A IgM Ab (Nonreactive) Hep Bs Antigen (Nonreactive) Hep B Core IgM Ab (Nonreactive) Hep C IgG Ab (Nonreactive) [facility] Test Result 02/08/18 02/08/18 02/08/18 Range/Units 11:55 12:51 13:45 CBC w Diff WBC (4.0-11.0) th/mm3 RBC (4.00-5.30) mil/mm3 Hgb (11.6-15.3) gm/dL Hct (35.0-46.0) % MCV (80.0-100.0) fL MCH (27.0-34.0) pg MCHC (32.0-36.0) % RDW (11.6-17.2) % Plt Count (150-450) th/mm3 MPV (7.0-11.0) fL Prelim Diff (Auto) Neut % (Auto) (16.0-70.0) % Lymph % (Auto) (9.0-44.0) % [place]kin % (Auto) (0.0-8.0) % Eos % (Auto) (0.0-4.0) % Baso % (Auto) (0.0-2.0) % Neut # (Auto) (1.8-7.7) th/mm3 Lymph # (Auto) (1.0-4.8) th/mm3 Pitkin # (Auto) (0.0-0.9) th/mm3 Eos # (Auto) (0.0-0.4) th/mm3 Baso # (Auto) (0.0-0.2) th/mm3 WBC Differential Seg Neuts % (Manual) (16-70) % Band Neuts % (Manual) (0-6) % Lymphocytes % (Manual) (9-44) % Monocytes % (Manual) (0-8) % Abs Neuts (Manual) (1.8-7.7) th/mm3 Differential Comment Platelet Estimate (Normal) Platelet Morphology (Normal) Puncture Site Patient Temperature O2 Saturation (90-100) % ABG pH (7.380-7.420) ABG pCO2 (38-42) mmHg ABG pO2 (61-120) mmHg ABG HCO3 (22-26) mmol/L ABG O2 Content (12.0-20.0) Vol % ABG Base Excess (-2-2) mmol/L ABG Methemoglobin (0-2) % Aki Test Hemoglobin (12.0-16.0) G/DL Carboxyhemoglobin (0-4) % O2 Delivery Device Inspired O2 % Critical Value Sodium (136-145) meq/L Potassium (3.5-5.1) meq/L Chloride (98-107) meq/L Carbon Dioxide (21.0-32.0) meq/L Anion Gap (5-15) meq/L BUN (7-18) mg/dL Creatinine (0.50-1.00) mg/dL Estimated GFR (>89) mL/min POC Glucose 137 H (68-110) mg/dl Random Glucose (74-106) mg/dL Osmolality (275-295) mosm/kg Lactic Acid 1.3 (0.4-2.0) mmol/L Calcium (8.5-10.1) mg/dL Phosphorus (2.5-4.9) mg/dL Magnesium (1.5-2.5) mg/dL Total Bilirubin (0.2-1.0) mg/dL Direct Bilirubin (0.0-0.2) mg/dL Indirect Bilirubin (0.0-0.8) mg/dL AST (15-37) U/L ALT (10-53) U/L Alkaline Phosphatase (45-117) U/L Ammonia (11-32) mcmol/L Total Creatine Kinase (26-192) U/L CK-MB (CK-2) (0.5-3.6) ng/mL CK-MB (CK-2) % (0.0-4.0) % Total Protein (6.4-8.2) g/dL Albumin (3.4-5.0) g/dL Triglycerides (42-150) mg/dL Lipase (73-393) U/L Beta-Hydroxybutyric Acd (0.00-0.39) mmol/L TSH (0.358-3.740) uIU/mL Urine Color (Yellw/Straw) Urine Clarity (Clear) Urine pH (5.0-8.5) Ur Specific Marty (1.002-1.035) Urine Protein (Neg-Trace) mg/dL Urine Glucose (UA) (Negative) mg/dL Urine Ketones (Negative) mg/dL Urine Occult Blood (Negative) Urine Nitrate (Negative) Urine Bilirubin (Negative) Urine Ictotest (Negative) Urine Urobilinogen (Less than 2) mg/dL Ur Leukocyte Esterase (Negative) Urine RBC (0-3) /hpf Urine WBC (0-5) /hpf Ur Squamous Epith Cells (0-5) /hpf Urine Bacteria (None) /hpf Hyaline Casts (0-3) /lpf Urine Mucus (Occasional) /lpf Micro UA Comment Urine Culture Comments Nasal Screen MRSA (PCR) (Negative) Stl C.difficile Tox PCR (Negative) St C. diff Tox Epid 027 (Negative) Salicylates (2.8-20.0) mg/dL Urine Opiates Screen (Neg) Acetaminophen (10.0-30.0) mcg/mL Ur Barbiturates Screen (Neg) Ur Amphetamines Screen (Neg) U Benzodiazepines Scrn (Neg) Urine Cocaine Screen (Neg) U Cannabinoids Screen (Neg) Serum Alcohol (0-5) mg/dL Hepatitis A IgM Ab (Nonreactive) Hep Bs Antigen (Nonreactive) Hep B Core IgM Ab (Nonreactive) Hep C IgG Ab (Nonreactive) Misc Test Result 02/08/18 02/08/18 02/08/18 Range/Units 18:20 19:22 19:22 CBC w Diff WBC (4.0-11.0) th/mm3 RBC (4.00-5.30) mil/mm3 Hgb (11.6-15.3) gm/dL Hct (35.0-46.0) % MCV (80.0-100.0) fL MCH (27.0-34.0) pg MCHC (32.0-36.0) % RDW (11.6-17.2) % Plt Count (150-450) th/mm3 MPV (7.0-11.0) fL Prelim Diff (Auto) Neut % (Auto) (16.0-70.0) % Lymph % (Auto) (9.0-44.0) % [place] % (Auto) (0.0-8.0) % Eos % (Auto) (0.0-4.0) % Baso % (Auto) (0.0-2.0) % Neut # (Auto) (1.8-7.7) th/mm3 Lymph # (Auto) (1.0-4.8) th/mm3 [place]kin # (Auto) (0.0-0.9) th/mm3 Eos # (Auto) (0.0-0.4) th/mm3 Baso # (Auto) (0.0-0.2) th/mm3 WBC Differential Seg Neuts % (Manual) (16-70) % Band Neuts % (Manual) (0-6) % Lymphocytes % (Manual) (9-44) % Monocytes % (Manual) (0-8) % Abs Neuts (Manual) (1.8-7.7) th/mm3 Differential Comment Platelet Estimate (Normal) Platelet Morphology (Normal) Puncture Site Patient Temperature O2 Saturation (90-100) % ABG pH (7.380-7.420) ABG pCO2 (38-42) mmHg ABG pO2 (61-120) mmHg ABG HCO3 (22-26) mmol/L ABG O2 Content (12.0-20.0) Vol % ABG Base Excess (-2-2) mmol/L ABG Methemoglobin (0-2) % Aki Test Hemoglobin (12.0-16.0) G/DL Carboxyhemoglobin (0-4) % O2 Delivery Device Inspired O2 % Critical Value Sodium Cancelled (136-145) meq/L Potassium (3.5-5.1) meq/L Chloride (98-107) meq/L Carbon Dioxide (21.0-32.0) meq/L Anion Gap (5-15) meq/L BUN (7-18) mg/dL Creatinine (0.50-1.00) mg/dL Estimated GFR (>89) mL/min POC Glucose 151 H (68-110) mg/dl Random Glucose (74-106) mg/dL Osmolality (275-295) mosm/kg Lactic Acid (0.4-2.0) mmol/L Calcium (8.5-10.1) mg/dL Phosphorus (2.5-4.9) mg/dL Magnesium (1.5-2.5) mg/dL Total Bilirubin (0.2-1.0) mg/dL Direct Bilirubin (0.0-0.2) mg/dL Indirect Bilirubin (0.0-0.8) mg/dL AST (15-37) U/L ALT (10-53) U/L Alkaline Phosphatase (45-117) U/L Ammonia (11-32) mcmol/L Total Creatine Kinase (26-192) U/L CK-MB (CK-2) (0.5-3.6) ng/mL CK-MB (CK-2) % (0.0-4.0) % Total Protein (6.4-8.2) g/dL Albumin (3.4-5.0) g/dL Triglycerides (42-150) mg/dL Lipase (73-393) U/L Beta-Hydroxybutyric Acd (0.00-0.39) mmol/L TSH (0.358-3.740) uIU/mL Urine Color (Yellw/Straw) Urine Clarity (Clear) Urine pH (5.0-8.5) Ur Specific Marty (1.002-1.035) Urine Protein (Neg-Trace) mg/dL Urine Glucose (UA) (Negative) mg/dL Urine Ketones (Negative) mg/dL Urine Occult Blood (Negative) Urine Nitrate (Negative) Urine Bilirubin (Negative) Urine Ictotest (Negative) Urine Urobilinogen (Less than 2) mg/dL Ur Leukocyte Esterase (Negative) Urine RBC (0-3) /hpf Urine WBC (0-5) /hpf Ur Squamous Epith Cells (0-5) /hpf Urine Bacteria (None) /hpf Hyaline Casts (0-3) /lpf Urine Mucus (Occasional) /lpf Micro UA Comment Urine Culture Comments Nasal Screen MRSA (PCR) (Negative) Stl C.difficile Tox PCR (Negative) St C. diff Tox Epid 027 (Negative) Salicylates (2.8-20.0) mg/dL Urine Opiates Screen (Neg) Acetaminophen (10.0-30.0) mcg/mL Ur Barbiturates Screen (Neg) Ur Amphetamines Screen (Neg) U Benzodiazepines Scrn (Neg) Urine Cocaine Screen (Neg) U Cannabinoids Screen (Neg) Serum Alcohol (0-5) mg/dL Hepatitis A IgM Ab Nonreactive (Nonreactive) Hep Bs Antigen Nonreactive (Nonreactive) Hep B Core IgM Ab Nonreactive (Nonreactive) Hep C IgG Ab Nonreactive (Nonreactive) [facility] Test Result 02/08/18 02/08/18 02/09/18 Range/Units 19:22 20:45 00:14 CBC w Diff WBC (4.0-11.0) th/mm3 RBC (4.00-5.30) mil/mm3 Hgb (11.6-15.3) gm/dL Hct (35.0-46.0) % MCV (80.0-100.0) fL MCH (27.0-34.0) pg MCHC (32.0-36.0) % RDW (11.6-17.2) % Plt Count (150-450) th/mm3 MPV (7.0-11.0) fL Prelim Diff (Auto) Neut % (Auto) (16.0-70.0) % Lymph % (Auto) (9.0-44.0) % [place] % (Auto) (0.0-8.0) % Eos % (Auto) (0.0-4.0) % Baso % (Auto) (0.0-2.0) % Neut # (Auto) (1.8-7.7) th/mm3 Lymph # (Auto) (1.0-4.8) th/mm3 [place]kin # (Auto) (0.0-0.9) th/mm3 Eos # (Auto) (0.0-0.4) th/mm3 Baso # (Auto) (0.0-0.2) th/mm3 WBC Differential Seg Neuts % (Manual) (16-70) % Band Neuts % (Manual) (0-6) % Lymphocytes % (Manual) (9-44) % Monocytes % (Manual) (0-8) % Abs Neuts (Manual) (1.8-7.7) th/mm3 Differential Comment Platelet Estimate (Normal) Platelet Morphology (Normal) Puncture Site Patient Temperature O2 Saturation (90-100) % ABG pH (7.380-7.420) ABG pCO2 (38-42) mmHg ABG pO2 (61-120) mmHg ABG HCO3 (22-26) mmol/L ABG O2 Content (12.0-20.0) Vol % ABG Base Excess (-2-2) mmol/L ABG Methemoglobin (0-2) % Aki Test Hemoglobin (12.0-16.0) G/DL Carboxyhemoglobin (0-4) % O2 Delivery Device Inspired O2 % Critical Value Sodium 138 137 (136-145) meq/L Potassium 2.5 L* (3.5-5.1) meq/L Chloride 97 L (98-107) meq/L Carbon Dioxide 25.2 (21.0-32.0) meq/L Anion Gap 16 H (5-15) meq/L BUN 2 L (7-18) mg/dL Creatinine 0.76 (0.50-1.00) mg/dL Estimated GFR Greater than 89 (>89) mL/min POC Glucose 142 H (68-110) mg/dl Random Glucose 157 H (74-106) mg/dL Osmolality 291 (275-295) mosm/kg Lactic Acid (0.4-2.0) mmol/L Calcium 8.1 L (8.5-10.1) mg/dL Phosphorus 0.4 L (2.5-4.9) mg/dL Magnesium 1.5 (1.5-2.5) mg/dL Total Bilirubin (0.2-1.0) mg/dL Direct Bilirubin (0.0-0.2) mg/dL Indirect Bilirubin (0.0-0.8) mg/dL AST (15-37) U/L ALT (10-53) U/L Alkaline Phosphatase (45-117) U/L Ammonia (11-32) mcmol/L Total Creatine Kinase (26-192) U/L CK-MB (CK-2) (0.5-3.6) ng/mL CK-MB (CK-2) % (0.0-4.0) % Total Protein (6.4-8.2) g/dL Albumin (3.4-5.0) g/dL Triglycerides 179 H (42-150) mg/dL Lipase (73-393) U/L Beta-Hydroxybutyric Acd (0.00-0.39) mmol/L TSH (0.358-3.740) uIU/mL Urine Color (Yellw/Straw) Urine Clarity (Clear) Urine pH (5.0-8.5) Ur Specific Marty (1.002-1.035) Urine Protein (Neg-Trace) mg/dL Urine Glucose (UA) (Negative) mg/dL Urine Ketones (Negative) mg/dL Urine Occult Blood (Negative) Urine Nitrate (Negative) Urine Bilirubin (Negative) Urine Ictotest (Negative) Urine Urobilinogen (Less than 2) mg/dL Ur Leukocyte Esterase (Negative) Urine RBC (0-3) /hpf Urine WBC (0-5) /hpf Ur Squamous Epith Cells (0-5) /hpf Urine Bacteria (None) /hpf Hyaline Casts (0-3) /lpf Urine Mucus (Occasional) /lpf Micro UA Comment Urine Culture Comments Nasal Screen MRSA (PCR) (Negative) Stl C.difficile Tox PCR (Negative) St C. diff Tox Epid 027 (Negative) Salicylates (2.8-20.0) mg/dL Urine Opiates Screen (Neg) Acetaminophen (10.0-30.0) mcg/mL Ur Barbiturates Screen (Neg) Ur Amphetamines Screen (Neg) U Benzodiazepines Scrn (Neg) Urine Cocaine Screen (Neg) U Cannabinoids Screen (Neg) Serum Alcohol (0-5) mg/dL Hepatitis A IgM Ab (Nonreactive) Hep Bs Antigen (Nonreactive) Hep B Core IgM Ab (Nonreactive) Hep C IgG Ab (Nonreactive) Misc Test Result 02/09/18 02/09/18 02/09/18 Range/Units 04:17 04:17 04:17 CBC w Diff WBC 8.5 (4.0-11.0) th/mm3 RBC 3.48 L (4.00-5.30) mil/mm3 Hgb 12.2 (11.6-15.3) gm/dL Hct 34.2 L (35.0-46.0) % MCV 98.4 (80.0-100.0) fL MCH 35.1 H (27.0-34.0) pg MCHC 35.6 (32.0-36.0) % RDW 14.8 (11.6-17.2) % Plt Count 248 (150-450) th/mm3 MPV 7.8 (7.0-11.0) fL Prelim Diff (Auto) Neut % (Auto) 74.4 H (16.0-70.0) % Lymph % (Auto) 16.7 (9.0-44.0) % [place]kin % (Auto) 8.5 H (0.0-8.0) % Eos % (Auto) 0.2 (0.0-4.0) % Baso % (Auto) 0.2 (0.0-2.0) % Neut # (Auto) 6.3 (1.8-7.7) th/mm3 Lymph # (Auto) 1.4 (1.0-4.8) th/mm3 [place]kin # (Auto) 0.7 (0.0-0.9) th/mm3 Eos # (Auto) 0.0 (0.0-0.4) th/mm3 Baso # (Auto) 0.0 (0.0-0.2) th/mm3 WBC Differential . Seg Neuts % (Manual) (16-70) % Band Neuts % (Manual) (0-6) % Lymphocytes % (Manual) (9-44) % Monocytes % (Manual) (0-8) % Abs Neuts (Manual) (1.8-7.7) th/mm3 Differential Comment Auto diff final Platelet Estimate (Normal) Platelet Morphology (Normal) Puncture Site Patient Temperature O2 Saturation (90-100) % ABG pH (7.380-7.420) ABG pCO2 (38-42) mmHg ABG pO2 (61-120) mmHg ABG HCO3 (22-26) mmol/L ABG O2 Content (12.0-20.0) Vol % ABG Base Excess (-2-2) mmol/L ABG Methemoglobin (0-2) % Aki Test Hemoglobin (12.0-16.0) G/DL Carboxyhemoglobin (0-4) % O2 Delivery Device Inspired O2 % Critical Value Sodium 141 (136-145) meq/L Potassium 2.7 L* (3.5-5.1) meq/L Chloride 100 (98-107) meq/L Carbon Dioxide 27.9 (21.0-32.0) meq/L Anion Gap 13 (5-15) meq/L BUN 2 L (7-18) mg/dL Creatinine 0.78 (0.50-1.00) mg/dL Estimated GFR 87 L (>89) mL/min POC Glucose (68-110) mg/dl Random Glucose 82 (74-106) mg/dL Osmolality 292 (275-295) mosm/kg Lactic Acid (0.4-2.0) mmol/L Calcium 8.2 L (8.5-10.1) mg/dL Phosphorus 0.7 L (2.5-4.9) mg/dL Magnesium 1.5 (1.5-2.5) mg/dL Total Bilirubin (0.2-1.0) mg/dL Direct Bilirubin (0.0-0.2) mg/dL Indirect Bilirubin (0.0-0.8) mg/dL AST (15-37) U/L ALT (10-53) U/L Alkaline Phosphatase (45-117) U/L Ammonia (11-32) mcmol/L Total Creatine Kinase 121 (26-192) U/L CK-MB (CK-2) (0.5-3.6) ng/mL CK-MB (CK-2) % (0.0-4.0) % Total Protein (6.4-8.2) g/dL Albumin (3.4-5.0) g/dL Triglycerides (42-150) mg/dL Lipase 5229 H (73-393) U/L Beta-Hydroxybutyric Acd (0.00-0.39) mmol/L TSH (0.358-3.740) uIU/mL Urine Color (Yellw/Straw) Urine Clarity (Clear) Urine pH (5.0-8.5) Ur Specific Marty (1.002-1.035) Urine Protein (Neg-Trace) mg/dL Urine Glucose (UA) (Negative) mg/dL Urine Ketones (Negative) mg/dL Urine Occult Blood (Negative) Urine Nitrate (Negative) Urine Bilirubin (Negative) Urine Ictotest (Negative) Urine Urobilinogen (Less than 2) mg/dL Ur Leukocyte Esterase (Negative) Urine RBC (0-3) /hpf Urine WBC (0-5) /hpf Ur Squamous Epith Cells (0-5) /hpf Urine Bacteria (None) /hpf Hyaline Casts (0-3) /lpf Urine Mucus (Occasional) /lpf Micro UA Comment Urine Culture Comments Nasal Screen MRSA (PCR) (Negative) Stl C.difficile Tox PCR (Negative) St C. diff Tox Epid 027 (Negative) Salicylates (2.8-20.0) mg/dL Urine Opiates Screen (Neg) Acetaminophen (10.0-30.0) mcg/mL Ur Barbiturates Screen (Neg) Ur Amphetamines Screen (Neg) U Benzodiazepines Scrn (Neg) Urine Cocaine Screen (Neg) U Cannabinoids Screen (Neg) Serum Alcohol (0-5) mg/dL Hepatitis A IgM Ab (Nonreactive) Hep Bs Antigen (Nonreactive) Hep B Core IgM Ab (Nonreactive) Hep C IgG Ab (Nonreactive) [facility] Test Result 02/09/18 02/09/18 02/09/18 Range/Units 06:18 07:55 08:51 CBC w Diff WBC (4.0-11.0) th/mm3 RBC (4.00-5.30) mil/mm3 Hgb (11.6-15.3) gm/dL Hct (35.0-46.0) % MCV (80.0-100.0) fL MCH (27.0-34.0) pg MCHC (32.0-36.0) % RDW (11.6-17.2) % Plt Count (150-450) th/mm3 MPV (7.0-11.0) fL Prelim Diff (Auto) Neut % (Auto) (16.0-70.0) % Lymph % (Auto) (9.0-44.0) % [place] % (Auto) (0.0-8.0) % Eos % (Auto) (0.0-4.0) % Baso % (Auto) (0.0-2.0) % Neut # (Auto) (1.8-7.7) th/mm3 Lymph # (Auto) (1.0-4.8) th/mm3 [place]kin # (Auto) (0.0-0.9) th/mm3 Eos # (Auto) (0.0-0.4) th/mm3 Baso # (Auto) (0.0-0.2) th/mm3 WBC Differential Seg Neuts % (Manual) (16-70) % Band Neuts % (Manual) (0-6) % Lymphocytes % (Manual) (9-44) % Monocytes % (Manual) (0-8) % Abs Neuts (Manual) (1.8-7.7) th/mm3 Differential Comment Platelet Estimate (Normal) Platelet Morphology (Normal) Puncture Site Right radial Patient Temperature 98.6 O2 Saturation 94 (90-100) % ABG pH 7.52 H* (7.380-7.420) ABG pCO2 37 L (38-42) mmHg ABG pO2 74 (61-120) mmHg ABG HCO3 30 H (22-26) mmol/L ABG O2 Content 15.4 (12.0-20.0) Vol % ABG Base Excess 6.7 H (-2-2) mmol/L ABG Methemoglobin 1.1 (0-2) % Aki Test Present Hemoglobin 11.6 L (12.0-16.0) G/DL Carboxyhemoglobin 2.1 (0-4) % O2 Delivery Device Room air Inspired O2 21 % Critical Value Yes Sodium (136-145) meq/L Potassium (3.5-5.1) meq/L Chloride (98-107) meq/L Carbon Dioxide (21.0-32.0) meq/L Anion Gap (5-15) meq/L BUN (7-18) mg/dL Creatinine (0.50-1.00) mg/dL Estimated GFR (>89) mL/min POC Glucose 101 (68-110) mg/dl Random Glucose (74-106) mg/dL Osmolality (275-295) mosm/kg Lactic Acid (0.4-2.0) mmol/L Calcium (8.5-10.1) mg/dL Phosphorus (2.5-4.9) mg/dL Magnesium (1.5-2.5) mg/dL Total Bilirubin (0.2-1.0) mg/dL Direct Bilirubin (0.0-0.2) mg/dL Indirect Bilirubin (0.0-0.8) mg/dL AST (15-37) U/L ALT (10-53) U/L Alkaline Phosphatase (45-117) U/L Ammonia (11-32) mcmol/L Total Creatine Kinase 114 (26-192) U/L CK-MB (CK-2) (0.5-3.6) ng/mL CK-MB (CK-2) % (0.0-4.0) % Total Protein (6.4-8.2) g/dL Albumin (3.4-5.0) g/dL Triglycerides (42-150) mg/dL Lipase (73-393) U/L Beta-Hydroxybutyric Acd (0.00-0.39) mmol/L TSH (0.358-3.740) uIU/mL Urine Color (Yellw/Straw) Urine Clarity (Clear) Urine pH (5.0-8.5) Ur Specific Marty (1.002-1.035) Urine Protein (Neg-Trace) mg/dL Urine Glucose (UA) (Negative) mg/dL Urine Ketones (Negative) mg/dL Urine Occult Blood (Negative) Urine Nitrate (Negative) Urine Bilirubin (Negative) Urine Ictotest (Negative) Urine Urobilinogen (Less than 2) mg/dL Ur Leukocyte Esterase (Negative) Urine RBC (0-3) /hpf Urine WBC (0-5) /hpf Ur Squamous Epith Cells (0-5) /hpf Urine Bacteria (None) /hpf Hyaline Casts (0-3) /lpf Urine Mucus (Occasional) /lpf Micro UA Comment Urine Culture Comments Nasal Screen MRSA (PCR) (Negative) Stl C.difficile Tox PCR (Negative) St C. diff Tox Epid 027 (Negative) Salicylates (2.8-20.0) mg/dL Urine Opiates Screen (Neg) Acetaminophen (10.0-30.0) mcg/mL Ur Barbiturates Screen (Neg) Ur Amphetamines Screen (Neg) U Benzodiazepines Scrn (Neg) Urine Cocaine Screen (Neg) U Cannabinoids Screen (Neg) Serum Alcohol (0-5) mg/dL Hepatitis A IgM Ab (Nonreactive) Hep Bs Antigen (Nonreactive) Hep B Core IgM Ab (Nonreactive) Hep C IgG Ab (Nonreactive) Misc Test Result 02/09/18 02/09/18 02/09/18 Range/Units 16:29 20:37 21:08 CBC w Diff WBC (4.0-11.0) th/mm3 RBC (4.00-5.30) mil/mm3 Hgb (11.6-15.3) gm/dL Hct (35.0-46.0) % MCV (80.0-100.0) fL MCH (27.0-34.0) pg MCHC (32.0-36.0) % RDW (11.6-17.2) % Plt Count (150-450) th/mm3 MPV (7.0-11.0) fL Prelim Diff (Auto) Neut % (Auto) (16.0-70.0) % Lymph % (Auto) (9.0-44.0) % [place]kin % (Auto) (0.0-8.0) % Eos % (Auto) (0.0-4.0) % Baso % (Auto) (0.0-2.0) % Neut # (Auto) (1.8-7.7) th/mm3 Lymph # (Auto) (1.0-4.8) th/mm3 [place]kin # (Auto) (0.0-0.9) th/mm3 Eos # (Auto) (0.0-0.4) th/mm3 Baso # (Auto) (0.0-0.2) th/mm3 WBC Differential Seg Neuts % (Manual) (16-70) % Band Neuts % (Manual) (0-6) % Lymphocytes % (Manual) (9-44) % Monocytes % (Manual) (0-8) % Abs Neuts (Manual) (1.8-7.7) th/mm3 Differential Comment Platelet Estimate (Normal) Platelet Morphology (Normal) Puncture Site Patient Temperature O2 Saturation (90-100) % ABG pH (7.380-7.420) ABG pCO2 (38-42) mmHg ABG pO2 (61-120) mmHg ABG HCO3 (22-26) mmol/L ABG O2 Content (12.0-20.0) Vol % ABG Base Excess (-2-2) mmol/L ABG Methemoglobin (0-2) % Aki Test Hemoglobin (12.0-16.0) G/DL Carboxyhemoglobin (0-4) % O2 Delivery Device Inspired O2 % Critical Value Sodium (136-145) meq/L Potassium (3.5-5.1) meq/L Chloride (98-107) meq/L Carbon Dioxide (21.0-32.0) meq/L Anion Gap (5-15) meq/L BUN (7-18) mg/dL Creatinine (0.50-1.00) mg/dL Estimated GFR (>89) mL/min POC Glucose 114 H 208 H (68-110) mg/dl Random Glucose (74-106) mg/dL Osmolality (275-295) mosm/kg Lactic Acid (0.4-2.0) mmol/L Calcium (8.5-10.1) mg/dL Phosphorus 1.0 L (2.5-4.9) mg/dL Magnesium (1.5-2.5) mg/dL Total Bilirubin (0.2-1.0) mg/dL Direct Bilirubin (0.0-0.2) mg/dL Indirect Bilirubin (0.0-0.8) mg/dL AST (15-37) U/L ALT (10-53) U/L Alkaline Phosphatase (45-117) U/L Ammonia (11-32) mcmol/L Total Creatine Kinase (26-192) U/L CK-MB (CK-2) (0.5-3.6) ng/mL CK-MB (CK-2) % (0.0-4.0) % Total Protein (6.4-8.2) g/dL Albumin (3.4-5.0) g/dL Triglycerides (42-150) mg/dL Lipase (73-393) U/L Beta-Hydroxybutyric Acd (0.00-0.39) mmol/L TSH (0.358-3.740) uIU/mL Urine Color (Yellw/Straw) Urine Clarity (Clear) Urine pH (5.0-8.5) Ur Specific Marty (1.002-1.035) Urine Protein (Neg-Trace) mg/dL Urine Glucose (UA) (Negative) mg/dL Urine Ketones (Negative) mg/dL Urine Occult Blood (Negative) Urine Nitrate (Negative) Urine Bilirubin (Negative) Urine Ictotest (Negative) Urine Urobilinogen (Less than 2) mg/dL Ur Leukocyte Esterase (Negative) Urine RBC (0-3) /hpf Urine WBC (0-5) /hpf Ur Squamous Epith Cells (0-5) /hpf Urine Bacteria (None) /hpf Hyaline Casts (0-3) /lpf Urine Mucus (Occasional) /lpf Micro UA Comment Urine Culture Comments Nasal Screen MRSA (PCR) (Negative) Stl C.difficile Tox PCR (Negative) St C. diff Tox Epid 027 (Negative) Salicylates (2.8-20.0) mg/dL Urine Opiates Screen (Neg) Acetaminophen (10.0-30.0) mcg/mL Ur Barbiturates Screen (Neg) Ur Amphetamines Screen (Neg) U Benzodiazepines Scrn (Neg) Urine Cocaine Screen (Neg) U Cannabinoids Screen (Neg) Serum Alcohol (0-5) mg/dL Hepatitis A IgM Ab (Nonreactive) Hep Bs Antigen (Nonreactive) Hep B Core IgM Ab (Nonreactive) Hep C IgG Ab (Nonreactive) Misc Test Result 02/09/18 02/10/18 02/10/18 Range/Units 21:08 03:24 03:24 CBC w Diff WBC 5.9 (4.0-11.0) th/mm3 RBC 3.25 L (4.00-5.30) mil/mm3 Hgb 11.2 L (11.6-15.3) gm/dL Hct 32.9 L (35.0-46.0) % MCV 101.5 H (80.0-100.0) fL MCH 34.6 H (27.0-34.0) pg MCHC 34.1 (32.0-36.0) % RDW 15.3 (11.6-17.2) % Plt Count 202 (150-450) th/mm3 MPV 8.8 (7.0-11.0) fL Prelim Diff (Auto) Neut % (Auto) (16.0-70.0) % Lymph % (Auto) (9.0-44.0) % [place] % (Auto) (0.0-8.0) % Eos % (Auto) (0.0-4.0) % Baso % (Auto) (0.0-2.0) % Neut # (Auto) (1.8-7.7) th/mm3 Lymph # (Auto) (1.0-4.8) th/mm3 [place]kin # (Auto) (0.0-0.9) th/mm3 Eos # (Auto) (0.0-0.4) th/mm3 Baso # (Auto) (0.0-0.2) th/mm3 WBC Differential Seg Neuts % (Manual) (16-70) % Band Neuts % (Manual) (0-6) % Lymphocytes % (Manual) (9-44) % Monocytes % (Manual) (0-8) % Abs Neuts (Manual) (1.8-7.7) th/mm3 Differential Comment Platelet Estimate (Normal) Platelet Morphology (Normal) Puncture Site Patient Temperature O2 Saturation (90-100) % ABG pH (7.380-7.420) ABG pCO2 (38-42) mmHg ABG pO2 (61-120) mmHg ABG HCO3 (22-26) mmol/L ABG O2 Content (12.0-20.0) Vol % ABG Base Excess (-2-2) mmol/L ABG Methemoglobin (0-2) % Aki Test Hemoglobin (12.0-16.0) G/DL Carboxyhemoglobin (0-4) % O2 Delivery Device Inspired O2 % Critical Value Sodium 141 (136-145) meq/L Potassium 2.5 L* 3.0 L (3.5-5.1) meq/L Chloride 101 (98-107) meq/L Carbon Dioxide 27.0 (21.0-32.0) meq/L Anion Gap 13 (5-15) meq/L BUN Less than 1 L (7-18) mg/dL Creatinine 0.79 (0.50-1.00) mg/dL Estimated GFR (>89) mL/min POC Glucose (68-110) mg/dl Random Glucose 169 H (74-106) mg/dL Osmolality (275-295) mosm/kg Lactic Acid (0.4-2.0) mmol/L Calcium 8.5 (8.5-10.1) mg/dL Phosphorus 1.0 L (2.5-4.9) mg/dL Magnesium (1.5-2.5) mg/dL Total Bilirubin 2.0 H (0.2-1.0) mg/dL Direct Bilirubin (0.0-0.2) mg/dL Indirect Bilirubin (0.0-0.8) mg/dL AST 234 H (15-37) U/L ALT 64 H (10-53) U/L Alkaline Phosphatase 184 H (45-117) U/L Ammonia (11-32) mcmol/L Total Creatine Kinase (26-192) U/L CK-MB (CK-2) (0.5-3.6) ng/mL CK-MB (CK-2) % (0.0-4.0) % Total Protein 5.8 L D (6.4-8.2) g/dL Albumin 2.6 L (3.4-5.0) g/dL Triglycerides (42-150) mg/dL Lipase 4249 H (73-393) U/L Beta-Hydroxybutyric Acd (0.00-0.39) mmol/L TSH (0.358-3.740) uIU/mL Urine Color (Yellw/Straw) Urine Clarity (Clear) Urine pH (5.0-8.5) Ur Specific Marty (1.002-1.035) Urine Protein (Neg-Trace) mg/dL Urine Glucose (UA) (Negative) mg/dL Urine Ketones (Negative) mg/dL Urine Occult Blood (Negative) Urine Nitrate (Negative) Urine Bilirubin (Negative) Urine Ictotest (Negative) Urine Urobilinogen (Less than 2) mg/dL Ur Leukocyte Esterase (Negative) Urine RBC (0-3) /hpf Urine WBC (0-5) /hpf Ur Squamous Epith Cells (0-5) /hpf Urine Bacteria (None) /hpf Hyaline Casts (0-3) /lpf Urine Mucus (Occasional) /lpf Micro UA Comment Urine Culture Comments Nasal Screen MRSA (PCR) (Negative) Stl C.difficile Tox PCR (Negative) St C. diff Tox Epid 027 (Negative) Salicylates (2.8-20.0) mg/dL Urine Opiates Screen (Neg) Acetaminophen (10.0-30.0) mcg/mL Ur Barbiturates Screen (Neg) Ur Amphetamines Screen (Neg) U Benzodiazepines Scrn (Neg) Urine Cocaine Screen (Neg) U Cannabinoids Screen (Neg) Serum Alcohol (0-5) mg/dL Hepatitis A IgM Ab (Nonreactive) Hep Bs Antigen (Nonreactive) Hep B Core IgM Ab (Nonreactive) Hep C IgG Ab (Nonreactive) Misc Test Result 02/10/18 02/10/18 02/10/18 Range/Units 08:09 12:38 18:08 CBC w Diff WBC (4.0-11.0) th/mm3 RBC (4.00-5.30) mil/mm3 Hgb (11.6-15.3) gm/dL Hct (35.0-46.0) % MCV (80.0-100.0) fL MCH (27.0-34.0) pg MCHC (32.0-36.0) % RDW (11.6-17.2) % Plt Count (150-450) th/mm3 MPV (7.0-11.0) fL Prelim Diff (Auto) Neut % (Auto) (16.0-70.0) % Lymph % (Auto) (9.0-44.0) % Pitkin % (Auto) (0.0-8.0) % Eos % (Auto) (0.0-4.0) % Baso % (Auto) (0.0-2.0) % Neut # (Auto) (1.8-7.7) th/mm3 Lymph # (Auto) (1.0-4.8) th/mm3 Pitkin # (Auto) (0.0-0.9) th/mm3 Eos # (Auto) (0.0-0.4) th/mm3 Baso # (Auto) (0.0-0.2) th/mm3 WBC Differential Seg Neuts % (Manual) (16-70) % Band Neuts % (Manual) (0-6) % Lymphocytes % (Manual) (9-44) % Monocytes % (Manual) (0-8) % Abs Neuts (Manual) (1.8-7.7) th/mm3 Differential Comment Platelet Estimate (Normal) Platelet Morphology (Normal) Puncture Site Patient Temperature O2 Saturation (90-100) % ABG pH (7.380-7.420) ABG pCO2 (38-42) mmHg ABG pO2 (61-120) mmHg ABG HCO3 (22-26) mmol/L ABG O2 Content (12.0-20.0) Vol % ABG Base Excess (-2-2) mmol/L ABG Methemoglobin (0-2) % Aki Test Hemoglobin (12.0-16.0) G/DL Carboxyhemoglobin (0-4) % O2 Delivery Device Inspired O2 % Critical Value Sodium (136-145) meq/L Potassium (3.5-5.1) meq/L Chloride (98-107) meq/L Carbon Dioxide (21.0-32.0) meq/L Anion Gap (5-15) meq/L BUN (7-18) mg/dL Creatinine (0.50-1.00) mg/dL Estimated GFR (>89) mL/min POC Glucose 219 H 183 H (68-110) mg/dl Random Glucose (74-106) mg/dL Osmolality (275-295) mosm/kg Lactic Acid (0.4-2.0) mmol/L Calcium (8.5-10.1) mg/dL Phosphorus (2.5-4.9) mg/dL Magnesium (1.5-2.5) mg/dL Total Bilirubin (0.2-1.0) mg/dL Direct Bilirubin (0.0-0.2) mg/dL Indirect Bilirubin (0.0-0.8) mg/dL AST (15-37) U/L ALT (10-53) U/L Alkaline Phosphatase (45-117) U/L Ammonia (11-32) mcmol/L Total Creatine Kinase (26-192) U/L CK-MB (CK-2) (0.5-3.6) ng/mL CK-MB (CK-2) % (0.0-4.0) % Total Protein (6.4-8.2) g/dL Albumin (3.4-5.0) g/dL Triglycerides (42-150) mg/dL Lipase (73-393) U/L Beta-Hydroxybutyric Acd (0.00-0.39) mmol/L TSH (0.358-3.740) uIU/mL Urine Color (Yellw/Straw) Urine Clarity (Clear) Urine pH (5.0-8.5) Ur Specific Marty (1.002-1.035) Urine Protein (Neg-Trace) mg/dL Urine Glucose (UA) (Negative) mg/dL Urine Ketones (Negative) mg/dL Urine Occult Blood (Negative) Urine Nitrate (Negative) Urine Bilirubin (Negative) Urine Ictotest (Negative) Urine Urobilinogen (Less than 2) mg/dL Ur Leukocyte Esterase (Negative) Urine RBC (0-3) /hpf Urine WBC (0-5) /hpf Ur Squamous Epith Cells (0-5) /hpf Urine Bacteria (None) /hpf Hyaline Casts (0-3) /lpf Urine Mucus (Occasional) /lpf Micro UA Comment Urine Culture Comments Nasal Screen MRSA (PCR) (Negative) Stl C.difficile Tox PCR Negative (Negative) St C. diff Tox Epid 027 Negative (Negative) Salicylates (2.8-20.0) mg/dL Urine Opiates Screen (Neg) Acetaminophen (10.0-30.0) mcg/mL Ur Barbiturates Screen (Neg) Ur Amphetamines Screen (Neg) U Benzodiazepines Scrn (Neg) Urine Cocaine Screen (Neg) U Cannabinoids Screen (Neg) Serum Alcohol (0-5) mg/dL Hepatitis A IgM Ab (Nonreactive) Hep Bs Antigen (Nonreactive) Hep B Core IgM Ab (Nonreactive) Hep C IgG Ab (Nonreactive) Misc Test Result 02/10/18 02/11/18 02/11/18 Range/Units 18:28 03:56 12:01 CBC w Diff WBC (4.0-11.0) th/mm3 RBC (4.00-5.30) mil/mm3 Hgb (11.6-15.3) gm/dL Hct (35.0-46.0) % MCV (80.0-100.0) fL MCH (27.0-34.0) pg MCHC (32.0-36.0) % RDW (11.6-17.2) % Plt Count (150-450) th/mm3 MPV (7.0-11.0) fL Prelim Diff (Auto) Neut % (Auto) (16.0-70.0) % Lymph % (Auto) (9.0-44.0) % [place]kin % (Auto) (0.0-8.0) % Eos % (Auto) (0.0-4.0) % Baso % (Auto) (0.0-2.0) % Neut # (Auto) (1.8-7.7) th/mm3 Lymph # (Auto) (1.0-4.8) th/mm3 [place]kin # (Auto) (0.0-0.9) th/mm3 Eos # (Auto) (0.0-0.4) th/mm3 Baso # (Auto) (0.0-0.2) th/mm3 WBC Differential Seg Neuts % (Manual) (16-70) % Band Neuts % (Manual) (0-6) % Lymphocytes % (Manual) (9-44) % Monocytes % (Manual) (0-8) % Abs Neuts (Manual) (1.8-7.7) th/mm3 Differential Comment Platelet Estimate (Normal) Platelet Morphology (Normal) Puncture Site Patient Temperature O2 Saturation (90-100) % ABG pH (7.380-7.420) ABG pCO2 (38-42) mmHg ABG pO2 (61-120) mmHg ABG HCO3 (22-26) mmol/L ABG O2 Content (12.0-20.0) Vol % ABG Base Excess (-2-2) mmol/L ABG Methemoglobin (0-2) % Aki Test Hemoglobin (12.0-16.0) G/DL Carboxyhemoglobin (0-4) % O2 Delivery Device Inspired O2 % Critical Value Sodium (136-145) meq/L Potassium 3.8 D (3.5-5.1) meq/L Chloride (98-107) meq/L Carbon Dioxide (21.0-32.0) meq/L Anion Gap (5-15) meq/L BUN (7-18) mg/dL Creatinine (0.50-1.00) mg/dL Estimated GFR (>89) mL/min POC Glucose 139 H 156 H (68-110) mg/dl Random Glucose (74-106) mg/dL Osmolality (275-295) mosm/kg Lactic Acid (0.4-2.0) mmol/L Calcium (8.5-10.1) mg/dL Phosphorus (2.5-4.9) mg/dL Magnesium (1.5-2.5) mg/dL Total Bilirubin (0.2-1.0) mg/dL Direct Bilirubin (0.0-0.2) mg/dL Indirect Bilirubin (0.0-0.8) mg/dL AST (15-37) U/L ALT (10-53) U/L Alkaline Phosphatase (45-117) U/L Ammonia (11-32) mcmol/L Total Creatine Kinase (26-192) U/L CK-MB (CK-2) (0.5-3.6) ng/mL CK-MB (CK-2) % (0.0-4.0) % Total Protein (6.4-8.2) g/dL Albumin (3.4-5.0) g/dL Triglycerides (42-150) mg/dL Lipase (73-393) U/L Beta-Hydroxybutyric Acd (0.00-0.39) mmol/L TSH (0.358-3.740) uIU/mL Urine Color (Yellw/Straw) Urine Clarity (Clear) Urine pH (5.0-8.5) Ur Specific Marty (1.002-1.035) Urine Protein (Neg-Trace) mg/dL Urine Glucose (UA) (Negative) mg/dL Urine Ketones (Negative) mg/dL Urine Occult Blood (Negative) Urine Nitrate (Negative) Urine Bilirubin (Negative) Urine Ictotest (Negative) Urine Urobilinogen (Less than 2) mg/dL Ur Leukocyte Esterase (Negative) Urine RBC (0-3) /hpf Urine WBC (0-5) /hpf Ur Squamous Epith Cells (0-5) /hpf Urine Bacteria (None) /hpf Hyaline Casts (0-3) /lpf Urine Mucus (Occasional) /lpf Micro UA Comment Urine Culture Comments Nasal Screen MRSA (PCR) (Negative) Stl C.difficile Tox PCR (Negative) St C. diff Tox Epid 027 (Negative) Salicylates (2.8-20.0) mg/dL Urine Opiates Screen (Neg) Acetaminophen (10.0-30.0) mcg/mL Ur Barbiturates Screen (Neg) Ur Amphetamines Screen (Neg) U Benzodiazepines Scrn (Neg) Urine Cocaine Screen (Neg) U Cannabinoids Screen (Neg) Serum Alcohol (0-5) mg/dL Hepatitis A IgM Ab (Nonreactive) Hep Bs Antigen (Nonreactive) Hep B Core IgM Ab (Nonreactive) Hep C IgG Ab (Nonreactive) Misc Test Result 02/11/18 02/11/18 02/12/18 Range/Units 18:24 21:02 07:18 CBC w Diff WBC (4.0-11.0) th/mm3 RBC (4.00-5.30) mil/mm3 Hgb (11.6-15.3) gm/dL Hct (35.0-46.0) % MCV (80.0-100.0) fL MCH (27.0-34.0) pg MCHC (32.0-36.0) % RDW (11.6-17.2) % Plt Count (150-450) th/mm3 MPV (7.0-11.0) fL Prelim Diff (Auto) Neut % (Auto) (16.0-70.0) % Lymph % (Auto) (9.0-44.0) % [place] % (Auto) (0.0-8.0) % Eos % (Auto) (0.0-4.0) % Baso % (Auto) (0.0-2.0) % Neut # (Auto) (1.8-7.7) th/mm3 Lymph # (Auto) (1.0-4.8) th/mm3 [place]kin # (Auto) (0.0-0.9) th/mm3 Eos # (Auto) (0.0-0.4) th/mm3 Baso # (Auto) (0.0-0.2) th/mm3 WBC Differential Seg Neuts % (Manual) (16-70) % Band Neuts % (Manual) (0-6) % Lymphocytes % (Manual) (9-44) % Monocytes % (Manual) (0-8) % Abs Neuts (Manual) (1.8-7.7) th/mm3 Differential Comment Platelet Estimate (Normal) Platelet Morphology (Normal) Puncture Site Patient Temperature O2 Saturation (90-100) % ABG pH (7.380-7.420) ABG pCO2 (38-42) mmHg ABG pO2 (61-120) mmHg ABG HCO3 (22-26) mmol/L ABG O2 Content (12.0-20.0) Vol % ABG Base Excess (-2-2) mmol/L ABG Methemoglobin (0-2) % Aki Test Hemoglobin (12.0-16.0) G/DL Carboxyhemoglobin (0-4) % O2 Delivery Device Inspired O2 % Critical Value Sodium 141 (136-145) meq/L Potassium 4.5 (3.5-5.1) meq/L Chloride 106 (98-107) meq/L Carbon Dioxide 26.9 (21.0-32.0) meq/L Anion Gap 8 (5-15) meq/L BUN 5 L (7-18) mg/dL Creatinine 0.61 (0.50-1.00) mg/dL Estimated GFR Greater than 89 (>89) mL/min POC Glucose 117 H 195 H (68-110) mg/dl Random Glucose 93 (74-106) mg/dL Osmolality (275-295) mosm/kg Lactic Acid (0.4-2.0) mmol/L Calcium 9.7 (8.5-10.1) mg/dL Phosphorus (2.5-4.9) mg/dL Magnesium (1.5-2.5) mg/dL Total Bilirubin (0.2-1.0) mg/dL Direct Bilirubin (0.0-0.2) mg/dL Indirect Bilirubin (0.0-0.8) mg/dL AST (15-37) U/L ALT (10-53) U/L Alkaline Phosphatase (45-117) U/L Ammonia (11-32) mcmol/L Total Creatine Kinase (26-192) U/L CK-MB (CK-2) (0.5-3.6) ng/mL CK-MB (CK-2) % (0.0-4.0) % Total Protein (6.4-8.2) g/dL Albumin (3.4-5.0) g/dL Triglycerides (42-150) mg/dL Lipase 2735 H (73-393) U/L Beta-Hydroxybutyric Acd (0.00-0.39) mmol/L TSH (0.358-3.740) uIU/mL Urine Color (Yellw/Straw) Urine Clarity (Clear) Urine pH (5.0-8.5) Ur Specific Marty (1.002-1.035) Urine Protein (Neg-Trace) mg/dL Urine Glucose (UA) (Negative) mg/dL Urine Ketones (Negative) mg/dL Urine Occult Blood (Negative) Urine Nitrate (Negative) Urine Bilirubin (Negative) Urine Ictotest (Negative) Urine Urobilinogen (Less than 2) mg/dL Ur Leukocyte Esterase (Negative) Urine RBC (0-3) /hpf Urine WBC (0-5) /hpf Ur Squamous Epith Cells (0-5) /hpf Urine Bacteria (None) /hpf Hyaline Casts (0-3) /lpf Urine Mucus (Occasional) /lpf Micro UA Comment Urine Culture Comments Nasal Screen MRSA (PCR) (Negative) Stl C.difficile Tox PCR (Negative) St C. diff Tox Epid 027 (Negative) Salicylates (2.8-20.0) mg/dL Urine Opiates Screen (Neg) Acetaminophen (10.0-30.0) mcg/mL Ur Barbiturates Screen (Neg) Ur Amphetamines Screen (Neg) U Benzodiazepines Scrn (Neg) Urine Cocaine Screen (Neg) U Cannabinoids Screen (Neg) Serum Alcohol (0-5) mg/dL Hepatitis A IgM Ab (Nonreactive) Hep Bs Antigen (Nonreactive) Hep B Core IgM Ab (Nonreactive) Hep C IgG Ab (Nonreactive) [facility] Test Result 02/12/18 02/12/18 02/12/18 Range/Units 07:18 12:02 17:05 CBC w Diff WBC (4.0-11.0) th/mm3 RBC (4.00-5.30) mil/mm3 Hgb (11.6-15.3) gm/dL Hct (35.0-46.0) % MCV (80.0-100.0) fL MCH (27.0-34.0) pg MCHC (32.0-36.0) % RDW (11.6-17.2) % Plt Count (150-450) th/mm3 MPV (7.0-11.0) fL Prelim Diff (Auto) Neut % (Auto) (16.0-70.0) % Lymph % (Auto) (9.0-44.0) % [place] % (Auto) (0.0-8.0) % Eos % (Auto) (0.0-4.0) % Baso % (Auto) (0.0-2.0) % Neut # (Auto) (1.8-7.7) th/mm3 Lymph # (Auto) (1.0-4.8) th/mm3 [place]kin # (Auto) (0.0-0.9) th/mm3 Eos # (Auto) (0.0-0.4) th/mm3 Baso # (Auto) (0.0-0.2) th/mm3 WBC Differential Seg Neuts % (Manual) (16-70) % Band Neuts % (Manual) (0-6) % Lymphocytes % (Manual) (9-44) % Monocytes % (Manual) (0-8) % Abs Neuts (Manual) (1.8-7.7) th/mm3 Differential Comment Platelet Estimate (Normal) Platelet Morphology (Normal) Puncture Site Patient Temperature O2 Saturation (90-100) % ABG pH (7.380-7.420) ABG pCO2 (38-42) mmHg ABG pO2 (61-120) mmHg ABG HCO3 (22-26) mmol/L ABG O2 Content (12.0-20.0) Vol % ABG Base Excess (-2-2) mmol/L ABG Methemoglobin (0-2) % Aki Test Hemoglobin (12.0-16.0) G/DL Carboxyhemoglobin (0-4) % O2 Delivery Device Inspired O2 % Critical Value Sodium (136-145) meq/L Potassium (3.5-5.1) meq/L Chloride (98-107) meq/L Carbon Dioxide (21.0-32.0) meq/L Anion Gap (5-15) meq/L BUN (7-18) mg/dL Creatinine (0.50-1.00) mg/dL Estimated GFR (>89) mL/min POC Glucose 128 H 131 H (68-110) mg/dl Random Glucose (74-106) mg/dL Osmolality (275-295) mosm/kg Lactic Acid (0.4-2.0) mmol/L Calcium (8.5-10.1) mg/dL Phosphorus (2.5-4.9) mg/dL Magnesium (1.5-2.5) mg/dL Total Bilirubin 1.6 H (0.2-1.0) mg/dL Direct Bilirubin 0.1 (0.0-0.2) mg/dL Indirect Bilirubin 1.5 H (0.0-0.8) mg/dL AST 167 H (15-37) U/L ALT 61 H (10-53) U/L Alkaline Phosphatase 295 H (45-117) U/L Ammonia (11-32) mcmol/L Total Creatine Kinase (26-192) U/L CK-MB (CK-2) (0.5-3.6) ng/mL CK-MB (CK-2) % (0.0-4.0) % Total Protein 7.1 D (6.4-8.2) g/dL Albumin 3.0 L (3.4-5.0) g/dL Triglycerides (42-150) mg/dL Lipase (73-393) U/L Beta-Hydroxybutyric Acd (0.00-0.39) mmol/L TSH (0.358-3.740) uIU/mL Urine Color (Yellw/Straw) Urine Clarity (Clear) Urine pH (5.0-8.5) Ur Specific Marty (1.002-1.035) Urine Protein (Neg-Trace) mg/dL Urine Glucose (UA) (Negative) mg/dL Urine Ketones (Negative) mg/dL Urine Occult Blood (Negative) Urine Nitrate (Negative) Urine Bilirubin (Negative) Urine Ictotest (Negative) Urine Urobilinogen (Less than 2) mg/dL Ur Leukocyte Esterase (Negative) Urine RBC (0-3) /hpf Urine WBC (0-5) /hpf Ur Squamous Epith Cells (0-5) /hpf Urine Bacteria (None) /hpf Hyaline Casts (0-3) /lpf Urine Mucus (Occasional) /lpf Micro UA Comment Urine Culture Comments Nasal Screen MRSA (PCR) (Negative) Stl C.difficile Tox PCR (Negative) St C. diff Tox Epid 027 (Negative) Salicylates (2.8-20.0) mg/dL Urine Opiates Screen (Neg) Acetaminophen (10.0-30.0) mcg/mL Ur Barbiturates Screen (Neg) Ur Amphetamines Screen (Neg) U Benzodiazepines Scrn (Neg) Urine Cocaine Screen (Neg) U Cannabinoids Screen (Neg) Serum Alcohol (0-5) mg/dL Hepatitis A IgM Ab (Nonreactive) Hep Bs Antigen (Nonreactive) Hep B Core IgM Ab (Nonreactive) Hep C IgG Ab (Nonreactive) Misc Test Result 02/12/18 02/13/18 02/13/18 Range/Units 21:58 07:10 08:54 CBC w Diff WBC (4.0-11.0) th/mm3 RBC (4.00-5.30) mil/mm3 Hgb (11.6-15.3) gm/dL Hct (35.0-46.0) % MCV (80.0-100.0) fL MCH (27.0-34.0) pg MCHC (32.0-36.0) % RDW (11.6-17.2) % Plt Count (150-450) th/mm3 MPV (7.0-11.0) fL Prelim Diff (Auto) Neut % (Auto) (16.0-70.0) % Lymph % (Auto) (9.0-44.0) % [place]kin % (Auto) (0.0-8.0) % Eos % (Auto) (0.0-4.0) % Baso % (Auto) (0.0-2.0) % Neut # (Auto) (1.8-7.7) th/mm3 Lymph # (Auto) (1.0-4.8) th/mm3 [place]kin # (Auto) (0.0-0.9) th/mm3 Eos # (Auto) (0.0-0.4) th/mm3 Baso # (Auto) (0.0-0.2) th/mm3 WBC Differential Seg Neuts % (Manual) (16-70) % Band Neuts % (Manual) (0-6) % Lymphocytes % (Manual) (9-44) % Monocytes % (Manual) (0-8) % Abs Neuts (Manual) (1.8-7.7) th/mm3 Differential Comment Platelet Estimate (Normal) Platelet Morphology (Normal) Puncture Site Patient Temperature O2 Saturation (90-100) % ABG pH (7.380-7.420) ABG pCO2 (38-42) mmHg ABG pO2 (61-120) mmHg ABG HCO3 (22-26) mmol/L ABG O2 Content (12.0-20.0) Vol % ABG Base Excess (-2-2) mmol/L ABG Methemoglobin (0-2) % Aki Test Hemoglobin (12.0-16.0) G/DL Carboxyhemoglobin (0-4) % O2 Delivery Device Inspired O2 % Critical Value Sodium 136 (136-145) meq/L Potassium 4.7 (3.5-5.1) meq/L Chloride 100 (98-107) meq/L Carbon Dioxide 22.7 (21.0-32.0) meq/L Anion Gap 13 (5-15) meq/L BUN 3 L (7-18) mg/dL Creatinine 0.57 (0.50-1.00) mg/dL Estimated GFR Greater than 89 (>89) mL/min POC Glucose 143 H 148 H (68-110) mg/dl Random Glucose 74 (74-106) mg/dL Osmolality (275-295) mosm/kg Lactic Acid (0.4-2.0) mmol/L Calcium 10.0 (8.5-10.1) mg/dL Phosphorus (2.5-4.9) mg/dL Magnesium (1.5-2.5) mg/dL Total Bilirubin 1.8 H (0.2-1.0) mg/dL Direct Bilirubin (0.0-0.2) mg/dL Indirect Bilirubin (0.0-0.8) mg/dL AST 186 H (15-37) U/L ALT 62 H (10-53) U/L Alkaline Phosphatase 471 H (45-117) U/L Ammonia (11-32) mcmol/L Total Creatine Kinase (26-192) U/L CK-MB (CK-2) (0.5-3.6) ng/mL CK-MB (CK-2) % (0.0-4.0) % Total Protein 8.3 H D (6.4-8.2) g/dL Albumin 3.4 (3.4-5.0) g/dL Triglycerides (42-150) mg/dL Lipase 2150 H (73-393) U/L Beta-Hydroxybutyric Acd (0.00-0.39) mmol/L TSH (0.358-3.740) uIU/mL Urine Color (Yellw/Straw) Urine Clarity (Clear) Urine pH (5.0-8.5) Ur Specific Marty (1.002-1.035) Urine Protein (Neg-Trace) mg/dL Urine Glucose (UA) (Negative) mg/dL Urine Ketones (Negative) mg/dL Urine Occult Blood (Negative) Urine Nitrate (Negative) Urine Bilirubin (Negative) Urine Ictotest (Negative) Urine Urobilinogen (Less than 2) mg/dL Ur Leukocyte Esterase (Negative) Urine RBC (0-3) /hpf Urine WBC (0-5) /hpf Ur Squamous Epith Cells (0-5) /hpf Urine Bacteria (None) /hpf Hyaline Casts (0-3) /lpf Urine Mucus (Occasional) /lpf Micro UA Comment Urine Culture Comments Nasal Screen MRSA (PCR) (Negative) Stl C.difficile Tox PCR (Negative) St C. diff Tox Epid 027 (Negative) Salicylates (2.8-20.0) mg/dL Urine Opiates Screen (Neg) Acetaminophen (10.0-30.0) mcg/mL Ur Barbiturates Screen (Neg) Ur Amphetamines Screen (Neg) U Benzodiazepines Scrn (Neg) Urine Cocaine Screen (Neg) U Cannabinoids Screen (Neg) Serum Alcohol (0-5) mg/dL Hepatitis A IgM Ab (Nonreactive) Hep Bs Antigen (Nonreactive) Hep B Core IgM Ab (Nonreactive) Hep C IgG Ab (Nonreactive) [facility] Test Result 02/13/18 02/13/18 02/13/18 Range/Units 11:54 15:34 22:19 CBC w Diff WBC (4.0-11.0) th/mm3 RBC (4.00-5.30) mil/mm3 Hgb (11.6-15.3) gm/dL Hct (35.0-46.0) % MCV (80.0-100.0) fL MCH (27.0-34.0) pg MCHC (32.0-36.0) % RDW (11.6-17.2) % Plt Count (150-450) th/mm3 MPV (7.0-11.0) fL Prelim Diff (Auto) Neut % (Auto) (16.0-70.0) % Lymph % (Auto) (9.0-44.0) % [place] % (Auto) (0.0-8.0) % Eos % (Auto) (0.0-4.0) % Baso % (Auto) (0.0-2.0) % Neut # (Auto) (1.8-7.7) th/mm3 Lymph # (Auto) (1.0-4.8) th/mm3 [place]kin # (Auto) (0.0-0.9) th/mm3 Eos # (Auto) (0.0-0.4) th/mm3 Baso # (Auto) (0.0-0.2) th/mm3 WBC Differential Seg Neuts % (Manual) (16-70) % Band Neuts % (Manual) (0-6) % Lymphocytes % (Manual) (9-44) % Monocytes % (Manual) (0-8) % Abs Neuts (Manual) (1.8-7.7) th/mm3 Differential Comment Platelet Estimate (Normal) Platelet Morphology (Normal) Puncture Site Patient Temperature O2 Saturation (90-100) % ABG pH (7.380-7.420) ABG pCO2 (38-42) mmHg ABG pO2 (61-120) mmHg ABG HCO3 (22-26) mmol/L ABG O2 Content (12.0-20.0) Vol % ABG Base Excess (-2-2) mmol/L ABG Methemoglobin (0-2) % Aki Test Hemoglobin (12.0-16.0) G/DL Carboxyhemoglobin (0-4) % O2 Delivery Device Inspired O2 % Critical Value Sodium (136-145) meq/L Potassium (3.5-5.1) meq/L Chloride (98-107) meq/L Carbon Dioxide (21.0-32.0) meq/L Anion Gap (5-15) meq/L BUN (7-18) mg/dL Creatinine (0.50-1.00) mg/dL Estimated GFR (>89) mL/min POC Glucose 85 88 126 H (68-110) mg/dl Random Glucose (74-106) mg/dL Osmolality (275-295) mosm/kg Lactic Acid (0.4-2.0) mmol/L Calcium (8.5-10.1) mg/dL Phosphorus (2.5-4.9) mg/dL Magnesium (1.5-2.5) mg/dL Total Bilirubin (0.2-1.0) mg/dL Direct Bilirubin (0.0-0.2) mg/dL Indirect Bilirubin (0.0-0.8) mg/dL AST (15-37) U/L ALT (10-53) U/L Alkaline Phosphatase (45-117) U/L Ammonia (11-32) mcmol/L Total Creatine Kinase (26-192) U/L CK-MB (CK-2) (0.5-3.6) ng/mL CK-MB (CK-2) % (0.0-4.0) % Total Protein (6.4-8.2) g/dL Albumin (3.4-5.0) g/dL Triglycerides (42-150) mg/dL Lipase (73-393) U/L Beta-Hydroxybutyric Acd (0.00-0.39) mmol/L TSH (0.358-3.740) uIU/mL Urine Color (Yellw/Straw) Urine Clarity (Clear) Urine pH (5.0-8.5) Ur Specific Marty (1.002-1.035) Urine Protein (Neg-Trace) mg/dL Urine Glucose (UA) (Negative) mg/dL Urine Ketones (Negative) mg/dL Urine Occult Blood (Negative) Urine Nitrate (Negative) Urine Bilirubin (Negative) Urine Ictotest (Negative) Urine Urobilinogen (Less than 2) mg/dL Ur Leukocyte Esterase (Negative) Urine RBC (0-3) /hpf Urine WBC (0-5) /hpf Ur Squamous Epith Cells (0-5) /hpf Urine Bacteria (None) /hpf Hyaline Casts (0-3) /lpf Urine Mucus (Occasional) /lpf Micro UA Comment Urine Culture Comments Nasal Screen MRSA (PCR) (Negative) Stl C.difficile Tox PCR (Negative) St C. diff Tox Epid 027 (Negative) Salicylates (2.8-20.0) mg/dL Urine Opiates Screen (Neg) Acetaminophen (10.0-30.0) mcg/mL Ur Barbiturates Screen (Neg) Ur Amphetamines Screen (Neg) U Benzodiazepines Scrn (Neg) Urine Cocaine Screen (Neg) U Cannabinoids Screen (Neg) Serum Alcohol (0-5) mg/dL Hepatitis A IgM Ab (Nonreactive) Hep Bs Antigen (Nonreactive) Hep B Core IgM Ab (Nonreactive) Hep C IgG Ab (Nonreactive) Misc Test Result 02/14/18 02/14/18 02/14/18 Range/Units 07:12 08:34 11:16 CBC w Diff WBC (4.0-11.0) th/mm3 RBC (4.00-5.30) mil/mm3 Hgb (11.6-15.3) gm/dL Hct (35.0-46.0) % MCV (80.0-100.0) fL MCH (27.0-34.0) pg MCHC (32.0-36.0) % RDW (11.6-17.2) % Plt Count (150-450) th/mm3 MPV (7.0-11.0) fL Prelim Diff (Auto) Neut % (Auto) (16.0-70.0) % Lymph % (Auto) (9.0-44.0) % [place] % (Auto) (0.0-8.0) % Eos % (Auto) (0.0-4.0) % Baso % (Auto) (0.0-2.0) % Neut # (Auto) (1.8-7.7) th/mm3 Lymph # (Auto) (1.0-4.8) th/mm3 [place]kin # (Auto) (0.0-0.9) th/mm3 Eos # (Auto) (0.0-0.4) th/mm3 Baso # (Auto) (0.0-0.2) th/mm3 WBC Differential Seg Neuts % (Manual) (16-70) % Band Neuts % (Manual) (0-6) % Lymphocytes % (Manual) (9-44) % Monocytes % (Manual) (0-8) % Abs Neuts (Manual) (1.8-7.7) th/mm3 Differential Comment Platelet Estimate (Normal) Platelet Morphology (Normal) Puncture Site Patient Temperature O2 Saturation (90-100) % ABG pH (7.380-7.420) ABG pCO2 (38-42) mmHg ABG pO2 (61-120) mmHg ABG HCO3 (22-26) mmol/L ABG O2 Content (12.0-20.0) Vol % ABG Base Excess (-2-2) mmol/L ABG Methemoglobin (0-2) % Aki Test Hemoglobin (12.0-16.0) G/DL Carboxyhemoglobin (0-4) % O2 Delivery Device Inspired O2 % Critical Value Sodium 138 (136-145) meq/L Potassium 3.1 L D (3.5-5.1) meq/L Chloride 101 (98-107) meq/L Carbon Dioxide 25.6 (21.0-32.0) meq/L Anion Gap 11 (5-15) meq/L BUN 4 L (7-18) mg/dL Creatinine 0.56 (0.50-1.00) mg/dL Estimated GFR Greater than 89 (>89) mL/min POC Glucose 102 76 (68-110) mg/dl Random Glucose 85 (74-106) mg/dL Osmolality (275-295) mosm/kg Lactic Acid (0.4-2.0) mmol/L Calcium 9.6 (8.5-10.1) mg/dL Phosphorus (2.5-4.9) mg/dL Magnesium (1.5-2.5) mg/dL Total Bilirubin 1.1 H (0.2-1.0) mg/dL Direct Bilirubin (0.0-0.2) mg/dL Indirect Bilirubin (0.0-0.8) mg/dL AST 190 H (15-37) U/L ALT 56 H (10-53) U/L Alkaline Phosphatase 567 H (45-117) U/L Ammonia (11-32) mcmol/L Total Creatine Kinase (26-192) U/L CK-MB (CK-2) (0.5-3.6) ng/mL CK-MB (CK-2) % (0.0-4.0) % Total Protein 7.6 D (6.4-8.2) g/dL Albumin 3.1 L (3.4-5.0) g/dL Triglycerides (42-150) mg/dL Lipase 2062 H (73-393) U/L Beta-Hydroxybutyric Acd (0.00-0.39) mmol/L TSH (0.358-3.740) uIU/mL Urine Color (Yellw/Straw) Urine Clarity (Clear) Urine pH (5.0-8.5) Ur Specific Marty (1.002-1.035) Urine Protein (Neg-Trace) mg/dL Urine Glucose (UA) (Negative) mg/dL Urine Ketones (Negative) mg/dL Urine Occult Blood (Negative) Urine Nitrate (Negative) Urine Bilirubin (Negative) Urine Ictotest (Negative) Urine Urobilinogen (Less than 2) mg/dL Ur Leukocyte Esterase (Negative) Urine RBC (0-3) /hpf Urine WBC (0-5) /hpf Ur Squamous Epith Cells (0-5) /hpf Urine Bacteria (None) /hpf Hyaline Casts (0-3) /lpf Urine Mucus (Occasional) /lpf Micro UA Comment Urine Culture Comments Nasal Screen MRSA (PCR) (Negative) Stl C.difficile Tox PCR (Negative) St C. diff Tox Epid 027 (Negative) Salicylates (2.8-20.0) mg/dL Urine Opiates Screen (Neg) Acetaminophen (10.0-30.0) mcg/mL Ur Barbiturates Screen (Neg) Ur Amphetamines Screen (Neg) U Benzodiazepines Scrn (Neg) Urine Cocaine Screen (Neg) U Cannabinoids Screen (Neg) Serum Alcohol (0-5) mg/dL Hepatitis A IgM Ab (Nonreactive) Hep Bs Antigen (Nonreactive) Hep B Core IgM Ab (Nonreactive) Hep C IgG Ab (Nonreactive) Misc Test Result 02/14/18 Range/Units 16:55 CBC w Diff WBC (4.0-11.0) th/mm3 RBC (4.00-5.30) mil/mm3 Hgb (11.6-15.3) gm/dL Hct (35.0-46.0) % MCV (80.0-100.0) fL MCH (27.0-34.0) pg MCHC (32.0-36.0) % RDW (11.6-17.2) % Plt Count (150-450) th/mm3 MPV (7.0-11.0) fL Prelim Diff (Auto) Neut % (Auto) (16.0-70.0) % Lymph % (Auto) (9.0-44.0) % Pitkin % (Auto) (0.0-8.0) % Eos % (Auto) (0.0-4.0) % Baso % (Auto) (0.0-2.0) % Neut # (Auto) (1.8-7.7) th/mm3 Lymph # (Auto) (1.0-4.8) th/mm3 Pitkin # (Auto) (0.0-0.9) th/mm3 Eos # (Auto) (0.0-0.4) th/mm3 Baso # (Auto) (0.0-0.2) th/mm3 WBC Differential Seg Neuts % (Manual) (16-70) % Band Neuts % (Manual) (0-6) % Lymphocytes % (Manual) (9-44) % Monocytes % (Manual) (0-8) % Abs Neuts (Manual) (1.8-7.7) th/mm3 Differential Comment Platelet Estimate (Normal) Platelet Morphology (Normal) Puncture Site Patient Temperature O2 Saturation (90-100) % ABG pH (7.380-7.420) ABG pCO2 (38-42) mmHg ABG pO2 (61-120) mmHg ABG HCO3 (22-26) mmol/L ABG O2 Content (12.0-20.0) Vol % ABG Base Excess (-2-2) mmol/L ABG Methemoglobin (0-2) % Aki Test Hemoglobin (12.0-16.0) G/DL Carboxyhemoglobin (0-4) % O2 Delivery Device Inspired O2 % Critical Value Sodium (136-145) meq/L Potassium (3.5-5.1) meq/L Chloride (98-107) meq/L Carbon Dioxide (21.0-32.0) meq/L Anion Gap (5-15) meq/L BUN (7-18) mg/dL Creatinine (0.50-1.00) mg/dL Estimated GFR (>89) mL/min POC Glucose 114 H (68-110) mg/dl Random Glucose (74-106) mg/dL Osmolality (275-295) mosm/kg Lactic Acid (0.4-2.0) mmol/L Calcium (8.5-10.1) mg/dL Phosphorus (2.5-4.9) mg/dL Magnesium (1.5-2.5) mg/dL Total Bilirubin (0.2-1.0) mg/dL Direct Bilirubin (0.0-0.2) mg/dL Indirect Bilirubin (0.0-0.8) mg/dL AST (15-37) U/L ALT (10-53) U/L Alkaline Phosphatase (45-117) U/L Ammonia (11-32) mcmol/L Total Creatine Kinase (26-192) U/L CK-MB (CK-2) (0.5-3.6) ng/mL CK-MB (CK-2) % (0.0-4.0) % Total Protein (6.4-8.2) g/dL Albumin (3.4-5.0) g/dL Triglycerides (42-150) mg/dL Lipase (73-393) U/L Beta-Hydroxybutyric Acd (0.00-0.39) mmol/L TSH (0.358-3.740) uIU/mL Urine Color (Yellw/Straw) Urine Clarity (Clear) Urine pH (5.0-8.5) Ur Specific Marty (1.002-1.035) Urine Protein (Neg-Trace) mg/dL Urine Glucose (UA) (Negative) mg/dL Urine Ketones (Negative) mg/dL Urine Occult Blood (Negative) Urine Nitrate (Negative) Urine Bilirubin (Negative) Urine Ictotest (Negative) Urine Urobilinogen (Less than 2) mg/dL Ur Leukocyte Esterase (Negative) Urine RBC (0-3) /hpf Urine WBC (0-5) /hpf Ur Squamous Epith Cells (0-5) /hpf Urine Bacteria (None) /hpf Hyaline Casts (0-3) /lpf Urine Mucus (Occasional) /lpf Micro UA Comment Urine Culture Comments Nasal Screen MRSA (PCR) (Negative) Stl C.difficile Tox PCR (Negative) St C. diff Tox Epid 027 (Negative) Salicylates (2.8-20.0) mg/dL Urine Opiates Screen (Neg) Acetaminophen (10.0-30.0) mcg/mL Ur Barbiturates Screen (Neg) Ur Amphetamines Screen (Neg) U Benzodiazepines Scrn (Neg) Urine Cocaine Screen (Neg) U Cannabinoids Screen (Neg) Serum Alcohol (0-5) mg/dL Hepatitis A IgM Ab (Nonreactive) Hep Bs Antigen (Nonreactive) Hep B Core IgM Ab (Nonreactive) Hep C IgG Ab (Nonreactive) Misc Test Result Imaging Data Radiologist's impression: ITS Impressions Abdomen/Pelvis CT 02/07/18 20:22 CONCLUSION: 1. Findings characteristic of acute pancreatitis with diffuse pancreatic enlargement, induration of the peripancreatic fat and the fat of the mesentery extending into the right lower quadrant, and mild free fluid along Gerota's fascia and right paracolic gutter. 2. Severe steatosis of the liver. 3. No calcified gallstones. Chest X-Ray 02/07/18 20:22 CONCLUSION: Negative for acute process Head CT 02/07/18 20:22 CONCLUSION: 1. Negative noncontrast CT brain. Abdomen Ultrasound 02/08/18 00:00 CONCLUSION: Echogenic liver compatible with fatty infiltration or hepatocellular disease. Chest X-Ray 02/08/18 09:46 CONCLUSION: 1. Right IJ catheter in the right atrium without pneumothorax. 2. Otherwise, no acute abnormality. Discharge Plan Discharge Disposition Patient Disposition: 30 Still Patient Discharge Condition Condition: Fair Discharge Details Anticipated Discharge Date: 02/12/18 Discharge Problem: Increased anion gap metabolic acidosis, Dehydration, Acute pancreatitis Physicians Team ED Provider: Denton Davila Primary Care Provider: UNKNOWN, Attending Provider: Jolene Garner Status ED Status: Left Department Discharge Information Discharge Date/Time: 02/08/18 03:22
[2018-02-07] MEDS ORDERED: Sodium Bicarbonate 8.4% Inj 50 MEQ/50 ML Syringe IV.PUSH ONE (21:57)
[2018-02-07] MEDS ORDERED: Levofloxacin 250 mg Premix Inj 250 MG/50 ML PIGGYBACK IV.SIG ONE (22:41)
[2018-02-07] MEDS: Sodium Bicarbonate 8.4% Inj 50 MEQ in Sodium Chloride 0.45 % Inj 950 ML IV.CONT SCH (22:57)
[2018-02-07 23:26] LABS: Barbiturate Screen,Urine Neg (Neg)
[2018-02-07 23:27] LABS: Amphetamine Screen,Urine Neg (Neg); Cannabinoid Screen,Urine Neg (Neg); Cocaine Screen,Urine Neg (Neg); Opiate Screen,Urine Neg (Neg)
[2018-02-08] MEDS ORDERED: Bisacodyl 10 MG Supp RECTAL PRN (04:35)
[2018-02-08] MEDS ORDERED: Acetaminophen 325 MG Tablet PO PRN ×2 (04:35→12:40)
[2018-02-08] MEDS ORDERED: Haloperidol Inj 5 MG/ML Ampul IV.PUSH PRN (04:41)
[2018-02-08] MEDS ORDERED: LORazepam 1 MG Tablet PO PRN (04:41)
[2018-02-08] MEDS ORDERED: SOD CHLORIDE 0.9% IV.SIG ONE (04:42)
[2018-02-08] MEDS ORDERED: Sod Chloride 0.9% Inj 1,000 ML IV.SIG ONE (05:00)
[2018-02-08] MEDS ORDERED: Sod Chloride 0.9% Inj 1,000 ML IV.CONT SCH (05:00)
[2018-02-08] MEDS: Enoxaparin Inj 40 MG/0.4 ML Syringe SQ SCH (05:16)
--- NOTE | 2018-02-08 05:26 | P.HPCC ---
History of Present Illness Primary Care Physician: UNKNOWN History of Present Illness: 27-year-old female with past medical history significant of alcohol use disorder presents for an evaluation of abdominal crampy pain, nausea, vomiting and diarrhea. Her diarrhea as well as nausea vomiting are watery in character. She has been also anxious, with some palpitations. In the emergency department she was found to be in severe anion gap metabolic acidosis. - Inpatient Certification If this patient has been admitted as an Inpatient: I certify that the inpatient services were ordered in accordance with Medicare regulations governing the order. This includes certification that hospital inpatient services are reasonable and necessary and in the case of services not specified as inpatient-only under 42 CFR 419.22(n), that they are appropriately provided as inpatient services in accordance to with the 2-midnight benchmark under 43 CFR 412.3(e) Estimated Total Length of Stay (Days): 5 Plans for Post Hospital Care: Not yet determined Review of Systems unobtainable due to mental status PMFSH - History History Provided By: Patient - Medical History Medical History: Medical History (Last Updated 02/07/18 @ 22:57 by Nila Moya) Anxiety Depression Occasional tremors Seizures - Surgical History Surgical History: Surgical History (Last Updated 02/07/18 @ 22:56 by Nila Moya) History of placement of ear tubes - Tobacco History Tobacco Use In Past 30 Days: Yes Smoking Status: Heavy tobacco smoker Tobacco Type: Cigarettes - Alcohol History How Often Do You Have a Drink Containing Alcohol: 4 or more times a week - Substance Use History Substance History: No History of Abuse - Travel History Recent Travel in the [place] Within the Last 8 Weeks: No Recent Travel Out of the Country Within the Last 8 Weeks: No - Immunization History Tetanus Immunization: Unsure Hx Influenza Vaccine This Season: No Medications and Allergies Active Medications: Active Medications Acetaminophen (Tylenol) 650 mg PO Q6H PRN PRN Reason: PAIN 1-10 AND/OR FEVER >101F Al Hydroxide/Mg Hydroxide (Milk Of Magnesia Liq) 30 ml PO Q12H PRN PRN Reason: Mild Constipation Albuterol (Duoneb Neb (Prn)) 1 ampul NEB Q2HR NEB PRN PRN Reason: WHEEZING Bisacodyl (Dulcolax Supp) 10 mg RECTAL DAILY PRN PRN Reason: SEVERE CONSITIPATION Chlorhexidine Gluconate (Chlorhexidine 2% Cloth) 3 pack TOPICAL DAILY@0400 RUTH Stop: 02/14/18 03:59 Chlorhexidine Gluconate (Chlorhexidine 2% Cloth) 3 pack TOPICAL DAILY@0400 PRN PRN Reason: Extra cloth needed Stop: 02/14/18 03:59 Enoxaparin Sodium (Lovenox Inj) 40 mg SQ Q24H RUTH Famotidine (Pepcid Pf Inj) 20 mg IV.PUSH Q12HR RUTH Flumazenil (Romazecon Inj) 0.2 mg IV.PUSH Q1M PRN PRN Reason: OVERSEDATION Haloperidol Lactate (Haldol Inj) 1 mg IV.PUSH Q15M PRN PRN Reason: for severe agitation Sodium Bicarbonate 50 meq/ (Sodium Chloride) 1,000 mls @ 100 mls/hr IV.CONT .Q10H RUTH Last Admin: 02/07/18 22:57 Dose: 100 mls/hr Multivitamins 10 ml/ Thiamine HCl 100 mg/ Folic Acid 1 mg/Dextrose/Sodium Chloride 511.2 mls @ 127.8 mls/hr IV.SIG ONCE ONE Stop: 02/08/18 09:59 Sodium Chloride (Ns Inj) 1,000 mls @ 84 mls/hr IV.CONT .[id number] RUTH Sodium Chloride (Ns Inj) 1,800 mls @ 999 mls/hr IV.SIG .Q1H49M ONE Stop: 02/08/18 06:48 Lactulose (Lactulose Liq) 30 ml PO DAILY PRN PRN Reason: SEVERE CONSITIPATION Lorazepam (Ativan) 1 mg PO Q4H PRN PRN Reason: for CIWA 8-10 Lorazepam (Ativan) 2 mg PO Q2H PRN PRN Reason: for CIWA 11-14 Lorazepam (Ativan Inj) 2 mg IV.PUSH Q1H PRN PRN Reason: for CIWA 15-20 Lorazepam (Ativan Inj) 2 mg IV.PUSH Q15M PRN PRN Reason: for CIWA > 20 Lorazepam (Ativan Inj) 1 mg IV.PUSH Q4H PRN PRN Reason: for CIWA 8-10 Lorazepam (Ativan Inj) 2 mg IV.PUSH Q2H PRN PRN Reason: for CIWA 11-14 Morphine Sulfate (Morphine Inj) 2 mg IV.PUSH Q2H PRN PRN Reason: PAIN 6-10 Ondansetron HCl (Zofran Inj) 4 mg IV.PUSH Q6H PRN PRN Reason: NAUSEA OR VOMITING Senna/Docusate Sodium (Sara-Colace) 1 tab PO BID [facility] Sennosides (Senokot) 17.2 mg PO Q12H PRN PRN Reason: Moderate Constipation Sodium Chloride (Ns Flush) 2 ml IV.FLUSH PRN PRN PRN Reason: FLUSH AFTER USING IV ACCESS Sodium Chloride (Ns Flush) 2 ml IV.FLUSH PRN PRN PRN Reason: FLUSH AFTER USING IV ACCESS Sodium Chloride (Ns Flush) 2 ml IV.FLUSH BID [facility] Allergies Allergy/AdvReac Type Severity Reaction Status Date / Time cephalexin Allergy Intermediate UNKNOWN Verified 02/07/18 17:01 latex Allergy Unknown UNKNONW Verified 02/07/18 17:01 Home Medications Medication Instructions Recorded Confirmed Type levonorgestrel [Mirena] 02/07/18 History propranolol 10 mg PO BID 02/07/18 History Results - Labs CBC & Chem 7: 02/07/18 20:50 02/07/18 20:50 Labs: Short CBC 02/07/18 Range/Units 20:50 WBC 22.0 H (4.0-11.0) th/mm3 Hgb 16.5 H (11.6-15.3) gm/dL Hct 48.9 H (35.0-46.0) % Plt Count 668 H (150-450) th/mm3 BMP 02/07/18 20:50 Sodium 127 L Potassium 3.4 L Chloride 83 L Carbon Dioxide 5.3 L BUN 8 Creatinine 1.60 H Calcium 9.0 Liver Function 02/07/18 Range/Units 20:50 Total Bilirubin 2.4 H (0.2-1.0) mg/dL AST 272 H (15-37) U/L ALT 94 H (10-53) U/L Alkaline Phosphatase 288 H (45-117) U/L Albumin 4.6 (3.4-5.0) g/dL Urine 02/07/18 Range/Units 18:05 Urine Color Yellow (Yellw/Straw) Urine Clarity Slightly cloudy (Clear) Urine pH 6.0 (5.0-8.5) Ur Specific [place] Greater/equal 1.030 (1.002-1.035) Urine Protein 300 or greater H (Neg-Trace) mg/dL Urine Glucose (UA) Negative (Negative) mg/dL - Imaging Impressions Abdomen/Pelvis CT 02/07/18 20:22 CONCLUSION: 1. Findings characteristic of acute pancreatitis with diffuse pancreatic enlargement, induration of the peripancreatic fat and the fat of the mesentery extending into the right lower quadrant, and mild free fluid along Gerota's fascia and right paracolic gutter. 2. Severe steatosis of the liver. 3. No calcified gallstones. Chest X-Ray 02/07/18 20:22 CONCLUSION: Negative for acute process Head CT 02/07/18 20:22 CONCLUSION: 1. Negative noncontrast CT brain. Exam Vital signs: Vital Signs 02/07/18 16:55 02/07/18 20:24 02/07/18 20:30 Temperature 97.5 F L Pulse Rate 140 H 118 H 135 H Respiratory Rate 18 28 H Blood Pressure 130/87 138/91 H Pulse Oximetry 99 100 02/07/18 22:30 02/07/18 23:00 02/07/18 23:30 Temperature 97.6 F Pulse Rate 136 H 120 H 116 H Respiratory Rate 28 H 28 H 25 H Blood Pressure 140/87 125/76 138/89 Pulse Oximetry 100 100 02/08/18 00:30 02/08/18 01:00 02/08/18 01:30 Temperature 98.5 F Pulse Rate 120 H 114 H 114 H Respiratory Rate 25 H 24 Blood Pressure 144/82 H 136/94 H 140/92 H Pulse Oximetry 100 99 02/08/18 02:22 02/08/18 03:19 Temperature Pulse Rate 120 H Respiratory Rate 22 22 Blood Pressure 140/85 Pulse Oximetry 96 Intake & Output 02/07/18 02/07/18 02/08/18 06:59 18:59 06:59 Intake Total 50 / 50 Output Total 300 / 300 Balance -250 / -250 Weight 60 kg Intake: IV 50 / 50 Levaquin 250 mg Premix Inj 250 50 / 50 mg In 50 ml @ 50 mls/hr IV.SIG ONCE ONE Rx#:[id number] Output: Urine 300 / 300 Other: # Voids 1 - Constitutional mild distress, somnolent, obtunded - Routine HEENT Exam Head: Present: normocephalic, atraumatic Eye: Present: PERRL ENT: Present: mucous membranes dry, dentition normal - Routine Neck Exam Present: supple, full ROM. Absent: JVD, carotid bruit - Routine Respiratory Exam Absent: accessory muscle use, prolonged expiratory phase, rhonchi, wheezes - Routine Cardiovascular Exam Present: RRR, S1, S2 - Routine Abdominal Exam Present: soft, normoactive bowel sounds - Routine Extremities Exam Absent: cyanosis, clubbing, edema - Routine Skin Exam Present: intact - Routine Neurological Exam Present: altered mental status. Absent: hemineglect, tremors, asterixis Caprini VTE Risk Assessment Caprini VTE Risk Assessment: Moderate/High Risk (score >= 2) Caprini Risk Assessment Model: Point Value = 1 Point Value = 2 Point Value = 3 Point Value = 5 Age 41-60 Minor surgery BMI > 25 kg/m2 Swollen legs Varicose veins or History of unexplained or recurrent spontaneous Oral contraceptives or hormone replacement Sepsis (< 1 month) Serious lung disease, including pneumonia (< 1 month) Abnormal pulmonary function Acute myocardial infarction Congestive heart failure (< 1 month) History of inflammatory bowel disease Medical patient at bed rest Age 61-74 Arthroscopic surgery Major open surgery (> 45 min) Laparoscopic surgery (> 45 min) Malignancy Confined to bed (> 72 hours) Immobilizing plaster cast Central venous access Age >= 75 History of VTE Family history of VTE Factor V Leiden Prothrombin [id number] Lupus anticoagulant Anticardiolipin antibodies Elevated serum homocysteine Heparin-induced thrombocytopenia Other congenital or acquired thrombophilia Stroke (< 1 month) Elective arthroplasty Hip, pelvis, or leg fracture Acute spinal cord injury (< 1 month) Prophylaxis Regimen: Total Risk Factor Score Risk Level Prophylaxis Regimen 0-1 Low Early ambulation 2 Moderate Order ONE of the following: *Sequential Compression Device (SCD) *Heparin 5000 units SQ BID 3-4 Higher Order ONE of the following medications: *Heparin 5000 units SQ TID *Enoxaparin/Lovenox 40 mg SQ daily (WT < 150 kg, CrCl > 30 mL/min) *Enoxaparin/Lovenox 30 mg SQ daily (WT < 150 kg, CrCl > 10-29 mL/min) *Enoxaparin/Lovenox 30 mg SQ BID (WT < 150 kg, CrCl > 30 mL/min) AND/OR *Sequential Compression Device (SCD) 5 or more Highest Order ONE of the following medications: *Heparin 5000 units SQ TID (Preferred with Epidurals) *Enoxaparin/Lovenox 40 mg SQ daily (WT < 150 kg, CrCl > 30 mL/min) *Enoxaparin/Lovenox 30 mg SQ daily (WT < 150 kg, CrCl > 10-29 mL/min) *Enoxaparin/Lovenox 30 mg SQ BID (WT < 150 kg, CrCl > 30 mL/min) AND *Sequential Compression Device (SCD) Assessment and Plan - Assessment and Plan Plan: Anion gap metabolic acidosis -History of alcohol abuse -Liver steatosis CT abdomen -Likely alcoholic ketoacidosis -No history of diabetes mellitus -Urine analysis negative for glucose -IV fluids -Thiamine folate and multivitamins -Serum osmolality pending Acute pancreatitis -IV fluid hydration -CT abdomen negative for bile duct obstruction -Likely due to alcoholism -Pain control Liver steatosis -Due to alcohol abuse -Supportive care -Monitor coagulopathy Alcohol use disorder -[facility] protocol -Thiamine folate and multivitamins -Monitor for withdrawal Altered mental status -Due to above -CT head negative -Neuro checks per DVT GI prophylaxis -Teds SCDs -Subcu Lovenox -Pepcid Critical Care: The total critical care time was 35 minutes. Time to perform other separately billable procedures was not included in the critical care time.
[2018-02-08 05:34] LABS: ABG Base Excess -19.1 mmol/L (-2-2); ABG PCO2 11 mmHg (38-42); ABG PO2 122 mmHg (61-120)
[2018-02-08] MEDS ORDERED: Multivitamin Inj 10 ML, Thiamine Inj 100 MG, Folic Acid Inj 1 MG in Dextrose 5%/NaCl 0.... IV.SIG ONE (06:00)
[2018-02-08 06:07] LABS: Eos # (Auto) 0.5 th/mm3 (0.0-0.4); Eos % (Auto) 3.9 % (0.0-4.0); Hematocrit 41.4 % (35.0-46.0); Lymph % (Auto) 6.8 % (9.0-44.0); Mean Corpuscular HGB Conc 33.9 % (32.0-36.0); Mean Corpuscular Hemoglobin 34.5 pg (27.0-34.0); Mean Corpuscular Volume 101.5 fL (80.0-100.0); Mean Platelet Volume 7.7 fL (7.0-11.0); Mono # (Auto) 3.3 th/mm3 (0.0-0.9); Mono % (Auto) 23.3 % (0.0-8.0); Neut # (Auto) 9.3 th/mm3 (1.8-7.7); Platelet Count 395 th/mm3 (150-450); Red Blood Count 4.08 mil/mm3 (4.00-5.30); Red Cell Distribution Width 15.3 % (11.6-17.2); White Blood Count 14.1 th/mm3 (4.0-11.0)
[2018-02-08 06:32] LABS: Albumin 3.1 g/dL (3.4-5.0); Anion Gap 30 meq/L (5-15); Aspartate Aminotransferase 161 U/L (15-37); Blood Urea Nitrogen 6 mg/dL (7-18); Calcium 7.6 mg/dL (8.5-10.1); Carbon Dioxide 8.1 meq/L (21.0-32.0); Chloride 99 meq/L (98-107); Glomerular Filtration Rate 55 mL/min (>89); Glucose,Random 159 mg/dL (74-106); Magnesium 1.7 mg/dL (1.5-2.5); Sodium 137 meq/L (136-145)
[2018-02-08] MEDS ORDERED: Potassium Chlor 40 mEq Premix 40 MEQ/100 ML PIGGYBACK IV.SIG PRN ×4 (06:39→08:47)
[2018-02-08] MEDS ORDERED: Magnesium Oxide 400 MG Tablet PO PRN ×2 (06:39→08:47)
[2018-02-08] MEDS ORDERED: Sodium Phosphate Inj 30 MMOL in Sodium Chlor 0.9% Inj 250 ML IV.SIG PRN ×2 (06:39→08:47)
[2018-02-08] MEDS ORDERED: Potassium Chlor 20 mEq Premix 20 MEQ/100 ML PIGGYBACK IV.SIG PRN ×2 (06:39)
[2018-02-08] MEDS ORDERED: Potassium Chloride 25 MEQ Effervescent Tablet PO PRN ×2 (06:39→08:47)
[2018-02-08] MEDS ORDERED: Potassium Phosphate 500 MG Soluble Tablet PO PRN ×3 (06:39→08:47)
[2018-02-08 06:45] LABS: Alanine Aminotransferase 55 U/L (10-53); Alkaline Phosphatase 190 U/L (45-117); Creatine Kinase 203 U/L (26-192); Phosphorus 0.7 mg/dL (2.5-4.9); Total Protein 7.1 g/dL (6.4-8.2)
[2018-02-08 07:03] LABS: Creatine Kinase MB 4.1 ng/mL (0.5-3.6)
[2018-02-08 07:06] LABS: Lymphocytes 3 % (9-44); Monocytes 1 % (0-8)
[2018-02-08 07:08] LABS: Platelet Estimate Normal (Normal); Platelet Morphology Normal (Normal)
--- NOTE | 2018-02-08 07:47 | P.PNCC ---
Subjective Subjective Remarks/Hospital Course: 27-year-old female with past medical history significant of alcohol use disorder presents for an evaluation of abdominal crampy pain, nausea, vomiting and diarrhea. Her diarrhea as well as nausea vomiting are watery in character. She has been also anxious, with some palpitations. In the emergency department she was found to be in severe anion gap metabolic acidosis. Subjective: 7/3 Severe anion gap metabolic acidosis with osmolar gap of 24. Discussed with poison control in addition to pancreatitis and remainder of clinical scenario. Unable to r/o ethylene glycol toxicity. Initiating fomepizole, consulted nephrology per light air defense artillery crewmember recommendations. Dr. Diggs will proceed with HD. I am placing a Vascath. Objective Vital Signs / I&O: Vital Signs 02/07/18 16:55 02/07/18 20:24 02/07/18 20:30 Temperature 97.5 F L Pulse Rate 140 H 118 H 135 H Respiratory Rate 18 28 H Blood Pressure 130/87 138/91 H Pulse Oximetry 99 100 02/07/18 22:30 02/07/18 23:00 02/07/18 23:30 Temperature 97.6 F Pulse Rate 136 H 120 H 116 H Respiratory Rate 28 H 28 H 25 H Blood Pressure 140/87 125/76 138/89 Pulse Oximetry 100 100 02/08/18 00:30 02/08/18 01:00 02/08/18 01:30 Temperature 98.5 F Pulse Rate 120 H 114 H 114 H Respiratory Rate 25 H 24 Blood Pressure 144/82 H 136/94 H 140/92 H Pulse Oximetry 100 99 02/08/18 02:22 02/08/18 03:19 02/08/18 05:00 Temperature 98.5 F Pulse Rate 120 H 124 H Respiratory Rate 22 22 27 H Blood Pressure 140/85 151/89 H Pulse Oximetry 96 100 02/08/18 06:00 Temperature Pulse Rate 105 H Respiratory Rate 22 Blood Pressure 138/94 H Pulse Oximetry 100 Intake & Output 02/07/18 02/08/18 02/08/18 18:59 06:59 18:59 Intake Total 50 / 50 Output Total 300 / 300 Balance -250 / -250 Weight 60 kg Intake: IV 50 / 50 Levaquin 250 mg Premix Inj 250 50 / 50 mg In 50 ml @ 50 mls/hr IV.SIG ONCE ONE Rx#:[id number] Oral 0 / 0 Output: Urine 300 / 300 Other: # Voids 1 Result Diagrams: 02/10/18 03:24 02/13/18 07:10 Objective Remarks: GENERAL: Lethargic female, curled into a ball and laying in right decubitus position. SKIN: Warm and dry. HEAD: Atraumatic. Normocephalic. EYES: Pupils equal and round. No scleral icterus. No injection or drainage. ENT: No nasal bleeding or discharge. Mucous membranes dry NECK: Trachea midline. No JVD. CARDIOVASCULAR: Regular, tachycardic, sinus tach on monitor. No murmurs rubs or gallops. RESPIRATORY: No accessory muscle use. Clear to auscultation. Breath sounds equal bilaterally. On RA. GASTROINTESTINAL: Abdomen soft, tender in epigastrium. No rebound or guarding. MUSCULOSKELETAL: Extremities without clubbing, cyanosis, or edema. No obvious deformities. NEUROLOGICAL: Lethargic, speech initially incomprehensible but she became more lucid throughout the morning, confused but able to answer questions. No obvious cranial nerve deficits. Motor grossly within normal limits. Assessment and Plan - Problem List (1) Increased anion gap metabolic acidosis Code(s): E87.2 - Acidosis Status: Acute (2) Dehydration Code(s): E86.0 - Dehydration Status: Acute (3) Acute pancreatitis Code(s): K85.90 - Acute pancreatitis without necrosis or infection, unspecified Status: Acute (4) High serum osmolar gap Code(s): R74.8 - Abnormal levels of other serum enzymes Status: Acute (5) Transaminitis Code(s): R74.0 - Nonspecific elevation of levels of transaminase and lactic acid dehydrogenase [LDH] Status: Acute (6) ETOH abuse Code(s): F10.10 - Alcohol abuse, uncomplicated Status: Chronic (7) Hypokalemia Code(s): E87.6 - Hypokalemia Status: Acute (8) Hypophosphatemia Code(s): E83.39 - Other disorders of phosphorus metabolism Status: Acute - Assessment and Plan Plan: NEURO: EtOH dependence Acute metabolic encephalopathy, improving CT brain 7/2negative Thiamine/folate acid/multivitamin supplementation. Supplementation of thiamine/ folic acid/pyridoxine at increased doses per poison control recommendations. Monitor for signs of alcohol withdrawal, CIWA protocol. Pt states last alcoholic beverage was 02/06. Drinks 2-6 drinks/day RESP: On room air CV: Home medication propranolol is for essential tremor GI: Acute pancreatitis Transaminitis Hepatic steatosis Likely secondary to alcohol abuse. F/u triglyceride level. Her only medication with propranolol. No evidence of biliary obstruction on CT. Will follow up abdominal ultrasound. NPO except meds/ice chips. FEN/RENAL: Very high anion gap metabolic acidosis, anion gap 39 upon presentation. Osmolar gap, 24 Alcoholic ketoacidosis Hypophosphatemia Hypokalemia Very high anion gap is may be multifactorial secondary to AKA with lactic acidemia and elevated beta hydroxybutyrate. However unable to rule out ethylene glycol toxicity and patient is a poor historian with severe symptoms. Discussed with poison control who recommends initiation of Fomepizole and hemodialysis. I discussed with Dr. Diggs. Right IJ Vas-Cath placed. Replace electrolytes per electrolyte replacement protocol. Patient indicated a history of latex allergy and some electrolyte formulations do contain latex. Discussed with pharmacy and they stated that ICU electrolyte protocol should be ordered as usual and that they would make appropriate adjustments. ID: Leukocytosis, likely reactive. Monitor for signs and symptoms of infection. Follow-up blood cultures HEME: Monitor CBC ENDO: Acute hyperglycemia Monitor bedside glucose every 6 hours and initiate low-dose insulin sliding scale as indicated. PROPH: SCDs/low for DVT prophylaxis. Pepcid for stress ulcer prophylaxis. ACCESS: Has peripheral IV. Right IJ Vas-Cath placed 02/08/18 Patient is critically ill with severe metabolic acidemia and multiple electrolyte derangements that present threat to life. Osmolar gap noted on morning labs unable to r/o ethylene glycol toxicity which would pose threat to life and could result in renal failure. I have personally discussed with poison control and with nephrology. Will proceed with empiric aggressive therapy including omeprazole and hemodialysis. I discussed with pharmacist. As patient became more lucid I discussed her condition with her. Additional critical care time 30 minutes exclusive of separately billable procedures per (3) Acute pancreatitis Qualifiers: Pancreatitis type: unspecified pancreatitis type Acute pancreatitis complication: unspecified Qualified Code(s): K85.90 - Acute pancreatitis without necrosis or infection, unspecified
[2018-02-08] MEDS ORDERED: Magnesium Sulfate Inj 2 GM in Sodium Chlor 0.9% Inj 96 ML IV.SIG PRN (08:47)
[2018-02-08] MEDS ORDERED: Magnesium Sulfate Inj 4 GM in Sodium Chlor 0.9% Inj 92 ML IV.SIG PRN (08:47)
[2018-02-08] MEDS ORDERED: Potassium Phosphate Inj 30 MMOL in Sodium Chlor 0.9% Inj 250 ML IV.SIG PRN (08:47)
[2018-02-08] MEDS ORDERED: SODIUM CHLOR 0.9% IV.SIG ONE (09:00)
[2018-02-08] MEDS ORDERED: FOMEPIZOLE IV.SIG ONE (09:00)
[2018-02-08] MEDS ORDERED: Calcium Carbonate 500 MG Tablet PO SCH (09:00)
[2018-02-08] MEDS ORDERED: fentaNYL Citrate Inj 100 MCG/2 ML Ampul ONE (09:18)
[2018-02-08] MEDS ORDERED: Midazolam Inj 5 MG/ML 1 ML Vial ONE (09:18)
--- NOTE | 2018-02-08 09:55 | P.PCN ---
Date of procedure: 02/08/18 Pre-op diagnosis: Acute pancreatitis, REJI, severe anion-gap acidosis possible ethylene glycol Post-op diagnosis: same Procedure: Vas-Cath DATE: 02/08/18 PROCEDURE: Right internal jugular vein Vas-Cath placement. INDICATION: Hemodialysis access CONSENT Informed consent for procedure was obtained from patient after discussion of risks, benefits, alternatives. DESCRIPTION OF THE PROCEDURE The patient was placed in supine position, mild Trendelenburg.. The skin was cleansed with Chloraprep. Additional barrier precautions included large sterile drape, sterile gloves, sterile gown, face mask, and hat. 1 % lidocaine was used for local anesthesia. Under direct ultrasound guidance and on single attempt, the vein was accessed with an introducer needle. The guide wire was advanced. The guidewire position was confirmed as venous by ultrasound. The tract was dilated. Using Seldinger technique a 14 [place] double-lumen Schon Vas -Cath was advanced to a depth of 15 centimeters. The guide wire was removed. All ports had good return of dark venous blood and flushed easily with saline. The central line was secured with 2.0 silk. A sterile dressing with antibiotic disc was applied. ESTIMATED BLOOD LOSS: Minimal COMPLICATIONS No apparent complications. PVCs during guidewire advancement. STAT chest x-ray pending. Anesthesia: local Surgeon: Sagrario Cornelius Estimated blood loss (mL): 5 Pathology: none sent Condition: critical Disposition: ICU
[2018-02-08] MEDS: Famotidine PF Inj 20 MG/2 ML Vial IV.PUSH SCH ×2 (09:56→22:55)
[2018-02-08] MEDS: Senna/Docusate Sodium 8.6/50 MG Tablet PO SCH ×2 (09:56→22:55)
[2018-02-08] MEDS ORDERED: fentaNYL Citrate Inj 100 MCG/2 ML Ampul IV.PUSH ONE (10:00)
[2018-02-08] MEDS: Sodium Bicarbonate 8.4% Inj 75 MEQ in Dextrose 5% in Water Inj 925 ML IV.CONT SCH ×4 (10:21→20:23)
--- NOTE | 2018-02-08 10:34 | XR ---
EXAM DATE: 02/08/2018 10:19 AM EDT AGE/SEX: 27 years / Female INDICATIONS: Shortness of breath. CLINICAL DATA: This is the patient's subsequent encounter. Patient reports that signs and symptoms h ave been present for 3 days and indicates a pain score of Nonresponsive. MEDICAL/SURGICAL HISTORY: Non-responsive. Acute pancreatitis. . Central line placement. COMPARISON: [facility], CHEST 1V SINGLE AP, 02/07/2018. . FINDINGS: Interval placement of right IJ central line with tip in the right atrium. Lungs are hypoaerated but a re otherwise clear. Cardiac mediastinal contours are within normal limits given portable technique. R emainder of the exam is unchanged. CONCLUSION: 1. Right IJ catheter in the right atrium without pneumothorax. 2. Otherwise, no acute abnormality. Electronically signed by: John Paul Manley MD 02/08/2018 10:32 AM EDT
--- NOTE | 2018-02-08 10:49 | US ---
EXAM DATE: 02/08/2018 10:43 AM EDT AGE/SEX: 27 years / Female INDICATIONS: Abdominal pain. CLINICAL DATA: This is the patient's initial encounter. Patient reports that signs and symptoms have been present for 1 week and indicates a pain score of 6/10. MEDICAL/SURGICAL HISTORY: . Occasional tremors. . Ear tube placement. COMPARISON: No prior exams available for comparison. MEASUREMENTS: Liver:__ 17.8 cm. Common Bile Duct:___ 3mm. Right Kidney:___10.6 x 5.3 x 6.4 cm. Left Kidney:___12.1 x 5.4 x 6.8 cm. Spleen:___11.5 cm. FINDINGS: Liver: Increased echotexture without focal lesion or ductal dilation. Portal Vein: Hepatopedal flow seen in portal vein. Common Duct: No intraluminal mass or stone visualized. Gallbladder: Demonstrates no wall thickening or pericholecystic fluid. No stones visualized. Pancreas: Not well visualized. Right Kidney: Normal echotexture and cortical thickness. No mass or hydronephrosis. Left Kidney: Normal echotexture and cortical thickness. No mass or hydronephrosis. Ascites: None Pleural Effusion: None Spleen: No focal lesion. Aorta: Non aneurysmal. IVC: Within normal limits Other: None. CONCLUSION: Echogenic liver compatible with fatty infiltration or hepatocellular disease. Electronically signed by: Moisés Salazar MD 02/08/2018 10:47 AM EDT
[2018-02-08] MEDS ORDERED: PYRIDOXINE IV.SIG SCH (12:00)
[2018-02-08] MEDS ORDERED: SODIUM CHLOR 0.9% IV.SIG SCH ×2 (12:00→21:00)
[2018-02-08] MEDS: DEXTROSE 5% IV.SIG SCH ×6 (12:08→18:34)
[2018-02-08] MEDS: Potassium Phosphate 500 MG Soluble Tablet PO PRN ×2 (12:08→16:29)
[2018-02-08] MEDS: WATER IV.SIG SCH ×6 (12:08→18:34)
[2018-02-08] MEDS: FOLIC ACID IV.SIG SCH ×6 (12:08→18:34)
[2018-02-08 12:26] LABS: Baso % (Auto) 0.1 % (0.0-2.0); Hematocrit 37.8 % (35.0-46.0); Lymph % (Auto) 12.4 % (9.0-44.0); Mean Corpuscular HGB Conc 34.3 % (32.0-36.0); Mean Corpuscular Hemoglobin 34.2 pg (27.0-34.0); Mean Corpuscular Volume 99.7 fL (80.0-100.0); Mean Platelet Volume 7.7 fL (7.0-11.0); Mono # (Auto) 0.4 th/mm3 (0.0-0.9); Mono % (Auto) 4.8 % (0.0-8.0); Neut % (Auto) 82.7 % (16.0-70.0); Platelet Count 322 th/mm3 (150-450); Red Blood Count 3.79 mil/mm3 (4.00-5.30); Red Cell Distribution Width 15.2 % (11.6-17.2); White Blood Count 8.4 th/mm3 (4.0-11.0)
[2018-02-08 12:40] LABS: Anion Gap 18 meq/L (5-15); Blood Urea Nitrogen 3 mg/dL (7-18); Calcium 7.7 mg/dL (8.5-10.1); Carbon Dioxide 21.2 meq/L (21.0-32.0); Chloride 102 meq/L (98-107); Glomerular Filtration Rate Greater Than 89 mL/min (>89); Glucose,Random 154 mg/dL (74-106); Potassium 3.2 meq/L (3.5-5.1); Sodium 141 meq/L (136-145)
[2018-02-08] MEDS ORDERED: Sod Chloride 0.9% Inj 1,000 ML IV.CONT PRN (12:40)
[2018-02-08] MEDS ORDERED: Heparin 10,000 UNITS/10 ML Vial (for IV use) IV.FLUSH PRN (12:40)
[2018-02-08] MEDS ORDERED: Albumin Human 25% Inj 100 ML IV.SIG PRN (12:40)
[2018-02-08] MEDS ORDERED: Sod Chloride 0.9% Inj 1,000 ML OTHER PRN ×2 (12:40)
[2018-02-08] MEDS ORDERED: Gelatin 12 MM/7 MM Topical Foam TOPICAL PRN (12:40)
[2018-02-08] MEDS ORDERED: Heparin 10,000 UNITS/10 ML Vial (for IV use) OTHER PRN (12:40)
[2018-02-08] MEDS: Thiamine Inj 100 MG in Sodium Chlor 0.9% Inj 100 ML IV.SIG SCH (12:43)
[2018-02-08] MEDS: Sodium Bicarbonate 8.4% Inj 50 MEQ in Sodium Chloride 0.45 % Inj 950 ML IV.CONT SCH (12:56)
--- NOTE | 2018-02-08 13:15 | MB ---
cc: Amy Diggs MD DATE: 02/08/2018 REASON FOR CONSULTATION: Severe metabolic acidosis for hemodialysis. HISTORY OF PRESENT ILLNESS: I was called to see the patient. This is a 27-year-old female with past medical history of alcoholism, who came to the hospital with abdominal cramping pain, nausea, vomiting and diarrhea. The patient is confused, not very oriented, but she is telling me that she is only drinks vodka. She denies drinking any other alcohol, like rubbing alcohol or antifreeze, but when she came in here, she was found to be in severe metabolic acidosis with high anion gap and her bicarbonate on presentation was 5.3. Her creatinine was 1.6 on presentation, which improved to 1.1, but her bicarbonate, despite giving all this, improved only to 8.1. She has increased anion gap of 30 and it was 39 on presentation. The patient has a high beta hydroxybutyric acid and osmolality in the serum was 309 so she has an osmolar gap. The patient was started on hemodialysis after discussing with Dr. Cornelius. She also has elevated liver enzymes. Unfortunately, the patient is not able to give much history. Most of the history was taken from the patient's chart. PAST MEDICAL HISTORY: Alcoholism. PAST SURGICAL HISTORY: Not known. REVIEW OF SYSTEMS: Limited since the patient is a confused and not answering most of the questions, but she denies any chest pain. No shortness of breath. She is complaining of abdominal pain, nausea and vomiting. She is oriented x 1 only. ALLERGIES: SHE IS ALLERGIC TO CEPHALEXIN AND LATEX. MEDICATIONS: Currently, she is on following medications: 1. Tylenol as needed. 2. DuoNeb as needed. 3. Dulcolax as needed. 4. Lovenox as needed. 5. Pepcid. 6. ____ as needed. 7. Folic acid 50 mg. 8. Fomepizole q.12 hours. 9. Haldol p.r.n. 10. Lorazepam p.r.n. 11. Magnesium oxide as needed. 12. Zofran as needed. 13. Potassium as needed. 14. Senokot 17.2 grams q.12 hours. 15. She was given sodium bicarbonate. 16. She is also getting Thiamine. PHYSICAL EXAMINATION: GENERAL: The patient is awake. She is currently on dialysis. She has been confused and occasionally agitated, oriented x 1 only, not in acute distress. Currently, she is on room air. HEENT: Pupils are mid constricted. Nonicteric sclerae. Conjunctivae are pale. NECK: Supple. JVD is not elevated. LUNGS: The patient has bilateral good air entry with occasional wheezing. HEART: S1, S2. Regular rate and rhythm. ABDOMEN: Soft, lax, distended. There is mild diffuse tenderness. There is no rebound or rigidity. Bowel sounds positive. EXTREMITIES: She has no edema. INVESTIGATIONS: WBC count is 8.4, hemoglobin 13.0, platelet count of 322, neutrophils 82.7%. Sodium 137, potassium 3.0, chloride 99, bicarbonate 88.1, anion gap 30, BUN 6, creatinine 1.1, osmolality 309, calcium 7.6, phosphorus 0.7, magnesium 1.7, AST 161, ALT 55, alkaline phosphatase 190, ammonia is 25, creatinine kinase 203, albumin 3.1. Beta hydroxybutyrate is 13.4. Blood gas showing pH of 7.35 and pCO2 of 11 with bicarbonate of 6 and base excess of -19. Urinalysis showing protein of 300 or greater. The urine was very concentrated with a specific gravity of 1.031 or greater. Toxicology screen was negative with acetaminophen was less than 2 and serum alcohol level was less than 3. Cultures: Blood cultures are pending. IMAGING STUDIES: The patient has chest x-ray done, which shows no pneumothorax. Right IJ in place. CT scan of the brain was done, which showed that she has a normal CT scan without contrast. Abdominal ultrasound was done and shows echogenic liver compatible with fatty infiltration or hepatocellular disease. CT scan of the abdomen and pelvis was also done, which shows acute pancreatitis with diffuse pancreatic enlargement, severe steatosis of liver, no calcified gallstone. ASSESSMENT AND PLAN: 1. Alcoholism. 2. High anion gap metabolic acidosis. 3. Osmolar gap. 4. Pancreatitis. 5. Elevated liver enzymes. The patient has severe metabolic acidosis and high anion gap. We are doing dialysis now to improve the metabolic acidosis and also to remove some fluid. The patient has been getting IV fluid. Her lactic acid was high, 6.5, but it has been improved. Her lactic acid was high also, but it has been improving, so follow the bicarb level and anion gap and will continue the dialysis as needed. So far she is tolerating well. Thank you for the consultation. MD HOLLY Javier/BK , 12:40 PM , 01:13 PM
[2018-02-08] MEDS ORDERED: Dextrose 50% in Water 50 ML Vial IV.PUSH PRN (14:24)
[2018-02-08] MEDS: Insulin NovoLOG Aspart Correctional Sugar Inj SQ SCH ×2 (18:00→21:49)
[2018-02-08] MEDS ORDERED: FOMEPIZOLE IV.SIG SCH (21:00)
[2018-02-08 21:30] LABS: Anion Gap 16 meq/L (5-15); Blood Urea Nitrogen 2 mg/dL (7-18); Calcium 8.1 mg/dL (8.5-10.1); Carbon Dioxide 25.2 meq/L (21.0-32.0); Chloride 97 meq/L (98-107); Glomerular Filtration Rate Greater Than 89 mL/min (>89); Glucose,Random 157 mg/dL (74-106); Magnesium 1.5 mg/dL (1.5-2.5); Phosphorus 0.4 mg/dL (2.5-4.9); Sodium 138 meq/L (136-145); Triglycerides 179 mg/dL (42-150)
[2018-02-08 21:35] LABS: Potassium 2.5 meq/L (3.5-5.1)
[2018-02-08] MEDS: Morphine Inj 4 MG/ML Vial IV.PUSH PRN (22:56)
[2018-02-08] MEDS: Potassium Chlor 20 mEq Premix 20 MEQ/100 ML PIGGYBACK IV.SIG PRN (23:04)
[2018-02-08 23:07] LABS: Hepatitits B Surface Antigen Nonreactive (Nonreactive)
[2018-02-08 23:52] LABS: Hepatitis A IgM Antibody Nonreactive (Nonreactive)
[2018-02-09] MEDS ORDERED: Sod Chloride 0.9% Inj 1,000 ML IV.SIG SCH
[2018-02-09] MEDS: WATER IV.SIG SCH ×6 (00:06→05:01)
[2018-02-09] MEDS: FOLIC ACID IV.SIG SCH ×6 (00:06→05:01)
[2018-02-09] MEDS: DEXTROSE 5% IV.SIG SCH ×6 (00:06→05:01)
[2018-02-09] MEDS: Potassium Chlor 20 mEq Premix 20 MEQ/100 ML PIGGYBACK IV.SIG PRN ×4 (01:05→23:33)
[2018-02-09] MEDS ORDERED: Chlorhexidine Gluconate 2% 1 Pack (2 Cloths) TOPICAL PRN (04:00)
[2018-02-09] MEDS: Enoxaparin Inj 40 MG/0.4 ML Syringe SQ SCH (05:01)
[2018-02-09] MEDS: Chlorhexidine Gluconate 2% 1 Pack (2 Cloths) TOPICAL SCH (05:01)
[2018-02-09 05:06] LABS: Baso % (Auto) 0.2 % (0.0-2.0); Eos % (Auto) 0.2 % (0.0-4.0); Hematocrit 34.2 % (35.0-46.0); Hemoglobin 12.2 gm/dL (11.6-15.3); Lymph # (Auto) 1.4 th/mm3 (1.0-4.8); Lymph % (Auto) 16.7 % (9.0-44.0); Mean Corpuscular HGB Conc 35.6 % (32.0-36.0); Mean Corpuscular Hemoglobin 35.1 pg (27.0-34.0); Mean Corpuscular Volume 98.4 fL (80.0-100.0); Mean Platelet Volume 7.8 fL (7.0-11.0); Mono # (Auto) 0.7 th/mm3 (0.0-0.9); Mono % (Auto) 8.5 % (0.0-8.0); Neut # (Auto) 6.3 th/mm3 (1.8-7.7); Neut % (Auto) 74.4 % (16.0-70.0); Platelet Count 248 th/mm3 (150-450); Red Blood Count 3.48 mil/mm3 (4.00-5.30); Red Cell Distribution Width 14.8 % (11.6-17.2); White Blood Count 8.5 th/mm3 (4.0-11.0)
[2018-02-09 05:25] LABS: Calcium 8.2 mg/dL (8.5-10.1); Carbon Dioxide 27.9 meq/L (21.0-32.0); Magnesium 1.5 mg/dL (1.5-2.5); Phosphorus 0.7 mg/dL (2.5-4.9)
[2018-02-09 05:30] LABS: Creatine Kinase 121 U/L (26-192); Lipase 5229 U/L (73-393); Potassium 2.7 meq/L (3.5-5.1)
[2018-02-09 06:40] LABS: ABG Base Excess 6.7 mmol/L (-2-2); ABG PCO2 37 mmHg (38-42); ABG PO2 74 mmHg (61-120)
[2018-02-09] MEDS ORDERED: Potassium Phosphate Inj 30 MMOL in Sodium Chlor 0.9% Inj 250 ML IV.SIG ONE (06:45)
--- NOTE | 2018-02-09 06:45 | P.PNCC ---
Subjective Subjective Remarks/Hospital Course: 27-year-old female with past medical history significant of alcohol use disorder presents for an evaluation of abdominal crampy pain, nausea, vomiting and diarrhea. Her diarrhea as well as nausea vomiting are watery in character. She has been also anxious, with some palpitations. In the emergency department she was found to be in severe anion gap metabolic acidosis. 02/08 Severe anion gap metabolic acidosis with osmolar gap of 24. Discussed with poison control in addition to pancreatitis and remainder of clinical scenario. Unable to r/o ethylene glycol toxicity. Initiating fomepizole, consulted nephrology per circulator recommendations. Dr. Diggs will proceed with HD. I am placing a Vascath. Subjective: 02/09 s/p HD yesterday. Osmolar gap closed, stopping fomepizole. Anion gap closed. Difficult to quantify urine output, having watery diarrhea during urination but she says she is urinating well. She is hungry and wants to eat; nausea much better. Continues to complain of myalgias. Objective Vital Signs / I&O: Vital Signs 02/08/18 07:00 02/08/18 08:00 02/08/18 09:00 Temperature 98.5 F Pulse Rate 106 H 114 H 96 H Respiratory Rate 20 20 Blood Pressure 127/83 149/88 H Pulse Oximetry 100 100 02/08/18 10:00 02/08/18 12:00 02/08/18 14:00 Temperature 98.4 F Pulse Rate 100 H 138 H 100 H Respiratory Rate 23 Blood Pressure 119/72 Pulse Oximetry 98 02/08/18 16:00 02/08/18 20:00 02/09/18 00:00 Temperature 99 F 98.9 F 98.7 F Pulse Rate 116 H 102 H 108 H Respiratory Rate 20 21 15 Blood Pressure 126/84 120/79 115/73 Pulse Oximetry 97 100 99 02/09/18 04:00 Temperature 98.9 F Pulse Rate 96 H Respiratory Rate 24 Blood Pressure 141/80 H Pulse Oximetry 95 Intake & Output 02/08/18 02/08/18 02/09/18 06:59 18:59 06:59 Intake Total 50 / 50 7264.1 / 7264.1 730 / 730 Output Total 300 / 300 1000 / 1000 3000 / 3000 Balance -250 / -250 6264.1 / 6264.1 -2270 / -0 Intake: IV 50 / 50 6984.1 / 6984.1 510 / 510 Sodium Bicarbonate 8.4% Inj 75 1000 / 1000 MEQ In D5W Inj 925 ML @ 125 mls /hr IV.CONT .Q8H [facility] Rx#: [id number] Folvite Inj 50 MG In D5W Inj 220 / 220 220 / 220 100 ML @ 110 mls/hr IV.SIG Q4H [facility] Rx#:[id number] Antizol Inj 900 MG In NS Inj 100.9 / 100.9 100 ML @ 200 mls/hr IV.SIG ONCE ONE Rx#:[id number] LR 1000 mL Inj 1,000 ML @ Wide 1000 / 1000 Open IV.SIG BOLUS ONE Rx#: [id number] Levaquin 250 mg Premix Inj 250 50 / 50 mg In 50 ml @ 50 mls/hr IV.SIG ONCE ONE Rx#:[id number] MVI-12 Inj 10 ML Thiamine Inj 511.2 / 511.2 100 MG Folvite Inj 1 MG In D5W/ Normal Saline Inj 500 ML @ 127. 8 mls/hr IV.SIG ONCE ONE Rx#: [id number] KCl 20 mEq Premix Inj 20 meq In 290 / 290 100 ml @ 50 mls/hr IV.SIG Q2H PRN Rx#:[id number] Vitamin B6 Inj 100 MG In NS Inj 51 / 51 50 ML @ 306 mls/hr IV.SIG DAILY [facility] Rx#:[id number] NS Inj 1,000 ML @ Wide Open IV. 3000 / 3000 SIG BOLUS ONE Rx#:[id number] Thiamine Inj 100 MG In NS Inj 101 / 101 100 ML @ 100 mls/hr IV.SIG DAILY [facility] Rx#:[id number] Oral 0 / 0 280 / 280 220 / 220 Output: Urine 300 / 300 0 / 0 0 / 0 Stool 0 / 0 0 / 0 Hemodialysis Amount 1000 / 1000 3000 / 3000 Other: # Voids 1 1 0 Date of Last Bowel Movement 02/08/18 02/08/18 # Bowel Movements 1 0 Result Diagrams: 02/10/18 03:24 02/13/18 07:10 Objective Remarks: GENERAL: Much more alert today, sitting up, alert, conversant and pleasant. SKIN: Warm and dry. HEAD: Atraumatic. Normocephalic. EYES: Pupils equal and round. No scleral icterus. No injection or drainage. ENT: No nasal bleeding or discharge. Lips dry. NECK: Trachea midline. No JVD. CARDIOVASCULAR: Regular, tachycardic, sinus tach on monitor 101. No murmurs rubs or gallops. RESPIRATORY: No accessory muscle use. Clear to auscultation. Breath sounds equal bilaterally. On RA. GASTROINTESTINAL: Abdomen soft, tender in epigastrium. No rebound or guarding. Bowel sounds present. MUSCULOSKELETAL: Extremities without clubbing, cyanosis, or edema. No obvious deformities. NEUROLOGICAL: Awake alert and oriented. Moves all extremities spontaneously. No focal deficit. Assessment and Plan - Problem List (1) Increased anion gap metabolic acidosis Status: Acute (2) Dehydration Code(s): E86.0 - Dehydration Status: Acute (3) Acute pancreatitis Code(s): K85.90 - Acute pancreatitis without necrosis or infection, unspecified Status: Acute (4) High serum osmolar gap Code(s): R74.8 - Abnormal levels of other serum enzymes Status: Acute (5) Hypokalemia Code(s): E87.6 - Hypokalemia Status: Acute (6) Hypophosphatemia Code(s): E83.39 - Other disorders of phosphorus metabolism Status: Acute (7) Alcoholic ketoacidosis Code(s): E87.2 - Acidosis Status: Resolved (8) Lactic acid acidosis Code(s): E87.2 - Acidosis Status: Resolved (9) Transaminitis Code(s): R74.0 - Nonspecific elevation of levels of transaminase and lactic acid dehydrogenase [LDH] Status: Acute (10) Leukocytosis Code(s): D72.829 - Elevated white blood cell count, unspecified Status: Resolved (11) REJI (acute kidney injury) Code(s): N17.9 - Acute kidney failure, unspecified Status: Resolved (12) Acute hyperglycemia Code(s): R73.9 - Hyperglycemia, unspecified Status: Resolved (13) Acute encephalopathy Code(s): G93.40 - Encephalopathy, unspecified Status: Resolved - Assessment and Plan Plan: NEURO: EtOH dependence Acute metabolic encephalopathy, resolved CT brain 7/2negative Thiamine/folate acid/multivitamin supplementation. Previously received increased doses of folic acid/pyridoxine per poison control recommendations, now backed off doses. Monitor for signs of alcohol withdrawal, CIWA protocol. Pt states last alcoholic beverage was 02/06. Drinks 2-6 drinks/day Depression Pt was started on citalopram 02/03. States she doesn't want to take it anymore, says she had a seizure 02/04 and attributes it to the med. RESP: On room air CV: Home medication propranolol is for essential tremor, she takes on prn basis and doesn't want to take as of now. GI: Acute pancreatitis Transaminitis Hepatic steatosis Likely secondary to alcohol abuse. Triglyceride level mildly elevated, not the cause of her pancreatitis. . Her only medications were propranolol, single dose of Cipro on 02/03 for ?UTI and single does escitalopram. No evidence of biliary obstruction on CT. abdominal ultrasound 02/09 fatty infiltration of liver. Advance to full liquid diet. FEN/RENAL: Very high anion gap metabolic acidosis, anion gap 39 upon presentation. ( resolved) Osmolar gap, 24 (resolved) Alcoholic ketoacidosis (resolved) Hypophosphatemia Hypokalemia Very high anion gap is may have multifactorial secondary to AKA with lactic acidemia and elevated beta hydroxybutyrate. However unable to rule out ethylene glycol toxicity and patient was a poor historian with severe symptoms. Discussed with poison control who recommended initiation of Fomepizole and hemodialysis. I discussed with Dr. Diggs. Right IJ Vas-Cath placed and she underwent HD on 02/08. Osmolar and anion gap now closed. Stop fomepizole. Remove Vascath today if ok with Dr. Diggs. Replace electrolytes per electrolyte replacement protocol. Patient indicated a history of latex allergy and some electrolyte formulations do contain latex. Discussed with pharmacy and they stated that ICU electrolyte protocol should be ordered as usual and that they would make appropriate adjustments. Still with significant diarrhea, continue fluid resus with D5 1/2 NS with 30 MEQ KCl/L @ 125 ml/hr. ID: Leukocytosis, likely reactive. (resolved) Monitor for signs and symptoms of infection. Follow-up blood cultures U/a negative for infection. HEME: Monitor CBC ENDO: Acute hyperglycemia Monitor bedside glucose every 6 hours and initiate low-dose insulin sliding scale as indicated. PROPH: SCDs/low for DVT prophylaxis. Pepcid for stress ulcer prophylaxis. ACCESS: Has peripheral IV. Right IJ Vas-Cath placed 02/08/18. Remove today if okay with Dr. Diggs. Out of bed. Level 2 followup (3) Acute pancreatitis Qualifiers: Pancreatitis type: unspecified pancreatitis type Acute pancreatitis complication: unspecified Qualified Code(s): K85.90 - Acute pancreatitis without necrosis or infection, unspecified
[2018-02-09] MEDS ORDERED: Mag Sulf 1 gm/100 ml Premix 100 ML IV.SIG ONE (07:45)
[2018-02-09] MEDS: Insulin NovoLOG Aspart Correctional Sugar Inj SQ SCH ×4 (08:00→20:39)
[2018-02-09] MEDS ORDERED: KCL 30 mEq/D5W/NaCl 0.45% Inj 1,000 ML IV.CONT SCH (08:00)
[2018-02-09] MEDS: Potassium Chloride Inj 30 MEQ in Dextrose 5%/NaCl 0.45% Inj 1,000 ML IV.SIG SCH ×2 (08:43→18:12)
[2018-02-09] MEDS: Senna/Docusate Sodium 8.6/50 MG Tablet PO SCH ×2 (08:44→20:34)
[2018-02-09] MEDS: Famotidine 20 MG Tablet PO SCH ×2 (08:44→20:34)
[2018-02-09] MEDS: Folic Acid 1 MG Tablet PO SCH (08:44)
[2018-02-09] MEDS: Thiamine Inj 100 MG in Sodium Chlor 0.9% Inj 100 ML IV.SIG SCH (10:40)
--- NOTE | 2018-02-09 14:55 | P.PN ---
Subjective Interval history: This is a 27-year-old female with past medical history of alcoholism, who came to the hospital with abdominal cramping pain, nausea, vomiting and diarrhea. Patient is more alert, no SOB, abd. pain is better, not in distress. Physical Exam Vital signs: Vital Signs 02/08/18 16:00 02/08/18 20:00 02/09/18 00:00 Temperature 99 F 98.9 F 98.7 F Pulse Rate 116 H 102 H 108 H Respiratory Rate 20 21 15 Blood Pressure 126/84 120/79 115/73 Pulse Oximetry 97 100 99 02/09/18 04:00 Temperature 98.9 F Pulse Rate 96 H Respiratory Rate 24 Blood Pressure 141/80 H Pulse Oximetry 95 Intake & Output 02/08/18 02/09/18 02/09/18 18:59 06:59 18:59 Intake Total 7264.1 / 7264.1 830 / 830 Output Total 1000 / 1000 3000 / 3000 Balance 6264.1 / 6264.1 -2170 / -2170 Intake: IV 6984.1 / 6984.1 510 / 510 Sodium Bicarbonate 8.4% Inj 75 1000 / 1000 312 / 312 MEQ In D5W Inj 925 ML @ 125 mls /hr IV.CONT .Q8H [facility] Rx#: [id number] Folvite Inj 50 MG In D5W Inj 220 / 220 220 / 220 220 / 220 100 ML @ 110 mls/hr IV.SIG Q4H [facility] Rx#:[id number] Antizol Inj 600 MG In NS Inj 100.9 / 100.9 100.6 / 100.6 100 ML @ 200 mls/hr IV.SIG Q12H [facility] Rx#:[id number] LR 1000 mL Inj 1,000 ML @ Wide 1000 / 1000 Open IV.SIG BOLUS ONE Rx#: [id number] Magnesium Sulfate 1 gm/D5W 100 100 / 100 ml Premix 100 ML @ 100 mls/hr IV.SIG ONCE ONE Rx#:[id number] MVI-12 Inj 10 ML Thiamine Inj 511.2 / 511.2 100 MG Folvite Inj 1 MG In D5W/ Normal Saline Inj 500 ML @ 127. 8 mls/hr IV.SIG ONCE ONE Rx#: [id number] KCl 20 mEq Premix Inj 20 meq In 290 / 290 100 / 100 100 ml @ 50 mls/hr IV.SIG Q2H PRN Rx#:[id number] Potassium Phosphate Inj 30 MMOL 260 / 260 In NS Inj 250 ML @ 43.333 mls/ hr IV.SIG ONCE ONE Rx#:[id number] Vitamin B6 Inj 100 MG In NS Inj 51 / 51 50 ML @ 306 mls/hr IV.SIG DAILY [facility] Rx#:[id number] NS Inj 1,000 ML @ 100 mls/hr IV 3000 / 3000 800 / 800 .SIG .Q10H [facility] Rx#:[id number] Thiamine Inj 100 MG In NS Inj 101 / 101 101 / 101 100 ML @ 100 mls/hr IV.SIG DAILY [facility] Rx#:[id number] Oral 280 / 280 320 / 320 Output: Urine 0 / 0 0 / 0 Stool 0 / 0 0 / 0 Hemodialysis Amount 1000 / 1000 3000 / 3000 Other: # Voids 1 0 Date of Last Bowel Movement 02/08/18 02/08/18 # Bowel Movements 1 0 - Constitutional no acute distress - Routine HEENT Exam Head: Present: normocephalic ENT: Present: mucous membranes moist - Routine Neck Exam Present: supple, full ROM, JVD - Routine Respiratory Exam Present: CTA bilaterally, diminished air movement - Routine Cardiovascular Exam Present: RRR, S1, S2 - Routine Abdominal Exam Present: soft, normoactive bowel sounds, distended - Routine Neurological Exam Present: alert, oriented X3 - Detailed Neurological Exam: Coma Scale Verbal Response: Oriented Motor Response: Obey commands Results - Labs CBC & Chem 7: 02/09/18 04:17 02/09/18 04:17 Laboratory Results - last 24 hr 02/08/18 02/08/18 02/08/18 18:20 19:22 19:22 WBC RBC Hgb Hct MCV MCH MCHC RDW Plt Count MPV Neut % (Auto) Lymph % (Auto) [place] % (Auto) Eos % (Auto) Baso % (Auto) Neut # (Auto) Lymph # (Auto) [place] # (Auto) Eos # (Auto) Baso # (Auto) WBC Differential Differential Comment Puncture Site Patient Temperature O2 Saturation ABG pH ABG pCO2 ABG pO2 ABG HCO3 ABG O2 Content ABG Base Excess ABG Methemoglobin Aki Test Hemoglobin Carboxyhemoglobin O2 Delivery Device Inspired O2 Critical Value Sodium Cancelled Potassium Chloride Carbon Dioxide Anion Gap BUN Creatinine Estimated GFR POC Glucose 151 H Random Glucose Osmolality Calcium Phosphorus Magnesium Total Creatine Kinase Triglycerides Lipase Hepatitis A IgM Ab Nonreactive Hep Bs Antigen Nonreactive Hep B Core IgM Ab Nonreactive Hep C IgG Ab Nonreactive 02/08/18 02/08/18 02/09/18 19:22 20:45 00:14 WBC RBC Hgb Hct MCV MCH MCHC RDW Plt Count MPV Neut % (Auto) Lymph % (Auto) [place] % (Auto) Eos % (Auto) Baso % (Auto) Neut # (Auto) Lymph # (Auto) [place] # (Auto) Eos # (Auto) Baso # (Auto) WBC Differential Differential Comment Puncture Site Patient Temperature O2 Saturation ABG pH ABG pCO2 ABG pO2 ABG HCO3 ABG O2 Content ABG Base Excess ABG Methemoglobin Aki Test Hemoglobin Carboxyhemoglobin O2 Delivery Device Inspired O2 Critical Value Sodium 138 137 Potassium 2.5 L* Chloride 97 L Carbon Dioxide 25.2 Anion Gap 16 H BUN 2 L Creatinine 0.76 Estimated GFR Greater than 89 POC Glucose 142 H Random Glucose 157 H Osmolality 291 Calcium 8.1 L Phosphorus 0.4 L Magnesium 1.5 Total Creatine Kinase Triglycerides 179 H Lipase Hepatitis A IgM Ab Hep Bs Antigen Hep B Core IgM Ab Hep C IgG Ab 02/09/18 02/09/18 02/09/18 04:17 04:17 04:17 WBC 8.5 RBC 3.48 L Hgb 12.2 Hct 34.2 L MCV 98.4 MCH 35.1 H MCHC 35.6 RDW 14.8 Plt Count 248 MPV 7.8 Neut % (Auto) 74.4 H Lymph % (Auto) 16.7 [place] % (Auto) 8.5 H Eos % (Auto) 0.2 Baso % (Auto) 0.2 Neut # (Auto) 6.3 Lymph # (Auto) 1.4 [place] # (Auto) 0.7 Eos # (Auto) 0.0 Baso # (Auto) 0.0 WBC Differential . Differential Comment Auto diff final Puncture Site Patient Temperature O2 Saturation ABG pH ABG pCO2 ABG pO2 ABG HCO3 ABG O2 Content ABG Base Excess ABG Methemoglobin Aki Test Hemoglobin Carboxyhemoglobin O2 Delivery Device Inspired O2 Critical Value Sodium 141 Potassium 2.7 L* Chloride 100 Carbon Dioxide 27.9 Anion Gap 13 BUN 2 L Creatinine 0.78 Estimated GFR 87 L POC Glucose Random Glucose 82 Osmolality 292 Calcium 8.2 L Phosphorus 0.7 L Magnesium 1.5 Total Creatine Kinase 121 Triglycerides Lipase 5229 H Hepatitis A IgM Ab Hep Bs Antigen Hep B Core IgM Ab Hep C IgG Ab 02/09/18 02/09/18 02/09/18 06:18 07:55 08:51 WBC RBC Hgb Hct MCV MCH MCHC RDW Plt Count MPV Neut % (Auto) Lymph % (Auto) [place] % (Auto) Eos % (Auto) Baso % (Auto) Neut # (Auto) Lymph # (Auto) [place] # (Auto) Eos # (Auto) Baso # (Auto) WBC Differential Differential Comment Puncture Site Right radial Patient Temperature 98.6 O2 Saturation 94 ABG pH 7.52 H* ABG pCO2 37 L ABG pO2 74 ABG HCO3 30 H ABG O2 Content 15.4 ABG Base Excess 6.7 H ABG Methemoglobin 1.1 Aki Test Present Hemoglobin 11.6 L Carboxyhemoglobin 2.1 O2 Delivery Device Room air Inspired O2 21 Critical Value Yes Sodium Potassium Chloride Carbon Dioxide Anion Gap BUN Creatinine Estimated GFR POC Glucose 101 Random Glucose Osmolality Calcium Phosphorus Magnesium Total Creatine Kinase 114 Triglycerides Lipase Hepatitis A IgM Ab Hep Bs Antigen Hep B Core IgM Ab Hep C IgG Ab Microbiology 02/08/18 05:47 Blood - Peripheral Aerobic Blood Culture - Preliminary No growth in 1 day 02/08/18 05:47 Blood - Peripheral Anaerobic Blood Culture - Preliminary No growth in 1 day 02/08/18 05:40 Blood - Peripheral Aerobic Blood Culture - Preliminary No growth in 1 day 02/08/18 05:40 Blood - Peripheral Anaerobic Blood Culture - Preliminary No growth in 1 day Assessment and Plan - Plan 1. Alcoholism. 2. High anion gap metabolic acidosis. 3. Osmolar gap. 4. Pancreatitis. 5. Elevated liver enzymes. The patient has severe metabolic acidosis and high anion gap. HD done yesterday, acidosis improved. K was low and replaced. Creatinine is normal. D/C Vascath. I will sign off from Nephrology.
[2018-02-09] MEDS: Morphine Inj 4 MG/ML Vial IV.PUSH PRN (20:47)
[2018-02-10] MEDS: Potassium Chlor 20 mEq Premix 20 MEQ/100 ML PIGGYBACK IV.SIG PRN (01:49)
[2018-02-10 05:16] LABS: Hematocrit 32.9 % (35.0-46.0); Hemoglobin 11.2 gm/dL (11.6-15.3); Mean Corpuscular HGB Conc 34.1 % (32.0-36.0); Mean Corpuscular Hemoglobin 34.6 pg (27.0-34.0); Mean Corpuscular Volume 101.5 fL (80.0-100.0); Mean Platelet Volume 8.8 fL (7.0-11.0); Platelet Count 202 th/mm3 (150-450); Red Blood Count 3.25 mil/mm3 (4.00-5.30); Red Cell Distribution Width 15.3 % (11.6-17.2); White Blood Count 5.9 th/mm3 (4.0-11.0)
[2018-02-10] MEDS: Potassium Chloride Inj 30 MEQ in Dextrose 5%/NaCl 0.45% Inj 1,000 ML IV.SIG SCH ×3 (05:16→19:31)
[2018-02-10] MEDS: Chlorhexidine Gluconate 2% 1 Pack (2 Cloths) TOPICAL SCH (05:17)
[2018-02-10] MEDS: Enoxaparin Inj 40 MG/0.4 ML Syringe SQ SCH (05:20)
[2018-02-10 05:21] LABS: Albumin 2.6 g/dL (3.4-5.0); Anion Gap 13 meq/L (5-15); Aspartate Aminotransferase 234 U/L (15-37); Calcium 8.5 mg/dL (8.5-10.1); Chloride 101 meq/L (98-107); Glucose,Random 169 mg/dL (74-106); Sodium 141 meq/L (136-145)
[2018-02-10 05:23] LABS: Alanine Aminotransferase 64 U/L (10-53)
[2018-02-10 05:26] LABS: Alkaline Phosphatase 184 U/L (45-117); Lipase 4249 U/L (73-393); Total Protein 5.8 g/dL (6.4-8.2)
[2018-02-10] MEDS: Insulin NovoLOG Aspart Correctional Sugar Inj SQ SCH ×4 (08:15→22:32)
[2018-02-10] MEDS: Senna/Docusate Sodium 8.6/50 MG Tablet PO SCH ×2 (08:16→22:08)
[2018-02-10] MEDS: Folic Acid 1 MG Tablet PO SCH (08:16)
[2018-02-10] MEDS: Thiamine Inj 100 MG in Sodium Chlor 0.9% Inj 100 ML IV.SIG SCH (08:17)
[2018-02-10] MEDS: Famotidine 20 MG Tablet PO SCH ×2 (08:17→22:08)
--- NOTE | 2018-02-10 20:13 | P.PN ---
Physical Exam Vital signs: Vital Signs 02/09/18 23:05 02/10/18 00:00 02/10/18 00:40 Temperature 98.7 F Pulse Rate 96 H Respiratory Rate 19 23 Blood Pressure 127/81 Pulse Oximetry 100 98 02/10/18 01:27 02/10/18 04:00 02/10/18 08:00 Temperature 98.7 F 98.4 F Pulse Rate 96 H 85 Respiratory Rate 23 33 H 17 Blood Pressure 125/83 130/89 Pulse Oximetry 98 98 02/10/18 12:00 02/10/18 16:00 Temperature 98.3 F Pulse Rate 83 Respiratory Rate 18 Blood Pressure 111/73 120/80 Pulse Oximetry 98 98 Intake & Output 02/10/18 02/10/18 02/11/18 06:59 18:59 06:59 Intake Total 1915 / 1915 3356 / 3356 400 / 400 Output Total 4500 / 4500 3800 / 3800 Balance -2585 / -2585 -444 / -444 400 / 400 Intake: IV 1115 / 1115 1116 / 1116 400 / 400 KCl 20 mEq Premix Inj 20 meq In 100 / 100 100 ml @ 50 mls/hr IV.SIG Q2H PRN Rx#:[id number] KCl Inj 30 MEQ In D5W/1/2 NS 1015 / 1015 1015 / 1015 400 / 400 Inj 1,000 ML @ 125 mls/hr IV. SIG .Q8H8M RUTH Rx#:[id number] Thiamine Inj 100 MG In NS Inj 101 / 101 100 ML @ 100 mls/hr IV.SIG DAILY RUTH Rx#:[id number] Oral 800 / 800 2240 / 2240 Output: Urine 4500 / 4500 3800 / 3800 Other: # Voids 8 Date of Last Bowel Movement 02/09/18 02/10/18 # Bowel Movements 1 Narrative: Follow-up acute metabolic encephalopathy alcohol dependence, pancreatitis anion gap metabolic acidosis Patient is in bed appears in nad. Able to amanda liquid diet. Less pain. Some tremors. Has a good UOP No more nausea , no vomiting. Advance diet Also will DC IVF with KCL znd will give potassium bicarb po GENERAL: Pleasant young female appears not acute distress. CARDIOVASCULAR: Regular, tachycardic, sinus tach on monitor 101. No murmurs rubs or gallops. RESPIRATORY: No accessory muscle use. Clear to auscultation. Breath sounds equal bilaterally. On RA. GASTROINTESTINAL: Abdomen soft, tender in epigastrium. No rebound or guarding. Bowel sounds present. MUSCULOSKELETAL: Extremities without clubbing, cyanosis, or edema. No obvious deformities. NEUROLOGICAL: Awake alert and oriented. Moves all extremities spontaneously. No focal deficit. Assessment and Plan NEURO: EtOH dependence Acute metabolic encephalopathy, resolved CT brain egative Thiamine/folate acid/multivitamin supplementation. Previously received increased doses of folic acid/pyridoxine per poison control recommendations, now backed off doses. Monitor for signs of alcohol withdrawal, CIWA protocol. Pt states last alcoholic beverage was 02/06. Drinks 2-6 drinks/day Depression Pt was started on citalopram 02/03. States she doesn't want to take it anymore, says she had a seizure 02/04 and attributes it to the med. RESP: On room air CV: Home medication propranolol is for essential tremor, she takes on prn basis and doesn't want to take as of now. GI: Acute pancreatitis Transaminitis Hepatic steatosis Likely secondary to alcohol abuse. Triglyceride level mildly elevated, not the cause of her pancreatitis. . Her only medications were propranolol, single dose of Cipro on 02/03 for ?UTI and single does escitalopram. No evidence of biliary obstruction on CT. abdominal ultrasound 02/09 fatty infiltration of liver. Advance to full liquid diet. FEN/RENAL: Very high anion gap metabolic acidosis, anion gap 39 upon presentation. ( resolved) Osmolar gap, 24 (resolved) Alcoholic ketoacidosis (resolved) Hypophosphatemia Hypokalemia Very high anion gap is may have multifactorial secondary to AKA with lactic acidemia and elevated beta hydroxybutyrate. However unable to rule out ethylene glycol toxicity and patient was a poor historian with severe symptoms. Discussed with poison control who recommended initiation of Fomepizole and hemodialysis. I discussed with Dr. Diggs. Right IJ Vas-Cath placed and she underwent HD on 02/08. Osmolar and anion gap now closed. Stop fomepizole. Remove Vascath today if ok with Dr. Diggs. Replace electrolytes per electrolyte replacement protocol. Patient indicated a history of latex allergy and some electrolyte formulations do contain latex. Discussed with pharmacy and they stated that ICU electrolyte protocol should be ordered as usual and that they would make appropriate adjustments. Still with significant diarrhea, continue fluid resus with D5 1/2 NS with 30 MEQ KCl/L @ 125 ml/hr. ID: Leukocytosis, likely reactive. (resolved) Monitor for signs and symptoms of infection. Follow-up blood cultures U/a negative for infection. HEME: Monitor CBC ENDO: Acute hyperglycemia Monitor bedside glucose every 6 hours and initiate low-dose insulin sliding scale as indicated. PROPH: SCDs/low for DVT prophylaxis. Pepcid for stress ulcer prophylaxis. ACCESS: Has peripheral IV. Right IJ Vas-Cath placed 02/08/18. Remove today if okay with Dr. Diggs. Out of bed. Discussed with the patient, ICU nurse Results - Labs CBC & Chem 7: 02/10/18 03:24 02/10/18 03:24 Laboratory Results - last 24 hr 02/09/18 02/09/18 02/09/18 20:37 21:08 21:08 WBC RBC Hgb Hct MCV MCH MCHC RDW Plt Count MPV Sodium Potassium 2.5 L* Chloride Carbon Dioxide Anion Gap BUN Creatinine POC Glucose 208 H Random Glucose Calcium Phosphorus 1.0 L Total Bilirubin AST ALT Alkaline Phosphatase Total Protein Albumin Lipase 02/10/18 02/10/18 02/10/18 03:24 03:24 08:09 WBC 5.9 RBC 3.25 L Hgb 11.2 L Hct 32.9 L MCV 101.5 H MCH 34.6 H MCHC 34.1 RDW 15.3 Plt Count 202 MPV 8.8 Sodium 141 Potassium 3.0 L Chloride 101 Carbon Dioxide 27.0 Anion Gap 13 BUN Less than 1 L Creatinine 0.79 POC Glucose 219 H Random Glucose 169 H Calcium 8.5 Phosphorus 1.0 L Total Bilirubin 2.0 H AST 234 H ALT 64 H Alkaline Phosphatase 184 H Total Protein 5.8 L D Albumin 2.6 L Lipase 4249 H 02/10/18 02/10/18 12:38 18:28 WBC RBC Hgb Hct MCV MCH MCHC RDW Plt Count MPV Sodium Potassium Chloride Carbon Dioxide Anion Gap BUN Creatinine POC Glucose 183 H 139 H Random Glucose Calcium Phosphorus Total Bilirubin AST ALT Alkaline Phosphatase Total Protein Albumin Lipase Microbiology 02/08/18 05:47 Blood - Peripheral Aerobic Blood Culture - Preliminary No growth in 2 days 02/08/18 05:47 Blood - Peripheral Anaerobic Blood Culture - Preliminary No growth in 2 days 02/08/18 05:40 Blood - Peripheral Aerobic Blood Culture - Preliminary No growth in 2 days 02/08/18 05:40 Blood - Peripheral Anaerobic Blood Culture - Preliminary No growth in 2 days
[2018-02-10] MEDS ORDERED: Potassium Bicarbonate 25 MEQ Effervescent Tablet PO ONE (20:42)
[2018-02-11] MEDS: Potassium Chloride Inj 30 MEQ in Dextrose 5%/NaCl 0.45% Inj 1,000 ML IV.SIG SCH (05:43)
[2018-02-11] MEDS: Chlorhexidine Gluconate 2% 1 Pack (2 Cloths) TOPICAL SCH (06:50)
[2018-02-11] MEDS: Enoxaparin Inj 40 MG/0.4 ML Syringe SQ SCH (06:58)
[2018-02-11] MEDS: Folic Acid 1 MG Tablet PO SCH (08:41)
[2018-02-11] MEDS: Famotidine 20 MG Tablet PO SCH ×2 (08:47→22:10)
[2018-02-11] MEDS: Senna/Docusate Sodium 8.6/50 MG Tablet PO SCH ×2 (09:15→22:09)
[2018-02-11] MEDS: Thiamine Inj 100 MG in Sodium Chlor 0.9% Inj 100 ML IV.SIG SCH (11:36)
--- NOTE | 2018-02-11 16:04 | P.PN ---
Physical Exam Vital signs: Vital Signs 02/10/18 20:00 02/11/18 00:42 02/11/18 03:57 Temperature 98.7 F 98.4 F Pulse Rate 103 H 109 H Respiratory Rate 19 18 18 Blood Pressure 129/88 134/92 H Pulse Oximetry 96 100 02/11/18 03:59 02/11/18 04:00 02/11/18 08:00 Temperature 98.5 F 98.1 F Pulse Rate 107 H 106 H 96 H Respiratory Rate 18 20 Blood Pressure 140/98 H 139/67 Pulse Oximetry 100 100 02/11/18 12:16 Temperature 98.2 F Pulse Rate 107 H Respiratory Rate 20 Blood Pressure 127/70 Pulse Oximetry 97 Intake & Output 02/10/18 02/11/18 02/11/18 18:59 06:59 18:59 Intake Total 3356 / 3356 400 / 400 Output Total 3800 / 3800 Balance -444 / -444 400 / 400 Intake: IV 1116 / 1116 400 / 400 KCl Inj 30 MEQ In D5W/1/2 NS 1015 / 1015 400 / 400 Inj 1,000 ML @ 125 mls/hr IV. SIG .Q8H8M RUTH Rx#:[id number] Thiamine Inj 100 MG In NS Inj 101 / 101 100 ML @ 100 mls/hr IV.SIG DAILY RUTH Rx#:[id number] Oral 2240 / 2240 Output: Urine 3800 / 3800 Other: # Voids 8 3 Date of Last Bowel Movement 02/10/18 02/10/18 02/11/18 # Bowel Movements 1 3 Narrative: Subjective: Follow-up acute metabolic encephalopathy alcohol dependence, pancreatitis anion gap metabolic acidosis: Able to amanda regular diet. Less pain. Some tremors. Has a good UOP No more nausea , no vomiting. Advance diet Had dome rash at the line in her neck resolved with benadryl cream No fever ro chills/atting well on room air Diarrhea last night, none so far until now tolerates food but not eating much GENERAL: Pleasant young female appears not acute distress. CARDIOVASCULAR: Regular, tachycardic, sinus tach on monitor 101. No murmurs rubs or gallops. RESPIRATORY: No accessory muscle use. Clear to auscultation. Breath sounds equal bilaterally. On RA. GASTROINTESTINAL: Abdomen soft, tender in epigastrium. No rebound or guarding. Bowel sounds present. MUSCULOSKELETAL: Extremities without clubbing, cyanosis, or edema. No obvious deformities. NEUROLOGICAL: Awake alert and oriented. Moves all extremities spontaneously. No focal deficit. Assessment and Plan NEURO: EtOH dependence with withdrawals Acute metabolic encephalopathy, resolved CT brain egative Thiamine/folate acid/multivitamin supplementation. Previously received increased doses of folic acid/pyridoxine per poison control recommendations, now backed off doses. Monitor for signs of alcohol withdrawal, CIWA protocol. Pt states last alcoholic beverage was 02/06. Drinks 2-6 drinks/day Depression Pt was started on citalopram 02/03. States she doesn't want to take it anymore, says she had a seizure 02/04 and attributes it to the med. RESP: On room air CV: Home medication propranolol is for essential tremor, she takes on prn basis and doesn't want to take as of now. GI: Acute pancreatitis Transaminitis Hepatic steatosis Likely secondary to alcohol abuse. Triglyceride level mildly elevated, not the cause of her pancreatitis. . Her only medications were propranolol, single dose of Cipro on 02/03 for ?UTI and single does escitalopram. No evidence of biliary obstruction on CT. abdominal ultrasound 02/09 fatty infiltration of liver. Advance to full liquid diet. Check lipase FEN/RENAL: Very high anion gap metabolic acidosis, anion gap 39 upon presentation. ( resolved) Osmolar gap, 24 (resolved) Alcoholic ketoacidosis (resolved) Hypophosphatemia Hypokalemia Very high anion gap is may have multifactorial secondary to AKA with lactic acidemia and elevated beta hydroxybutyrate. However unable to rule out ethylene glycol toxicity and patient was a poor historian with severe symptoms. Discussed with poison control who recommended initiation of Fomepizole and hemodialysis. I discussed with Dr. Diggs. Right IJ Vas-Cath placed and she underwent HD on 02/08. Osmolar and anion gap now closed. Stop fomepizole. Remove Vascath today if ok with Dr. Diggs. Replace electrolytes per electrolyte replacement protocol. Patient indicated a history of latex allergy and some electrolyte formulations do contain latex. Discussed with pharmacy and they stated that ICU electrolyte protocol should be ordered as usual and that they would make appropriate adjustments. Diarrhea improved continue DC IVF tolerated diet Monitor electrolytes ID: Leukocytosis, likely reactive. (resolved) Monitor for signs and symptoms of infection. Follow-up blood cultures U/a negative for infection. HEME: Monitor CBC ENDO: Acute hyperglycemia Monitor bedside glucose every 6 hours and initiate low-dose insulin sliding scale as indicated. PROPH: SCDs/low for DVT prophylaxis. Pepcid for stress ulcer prophylaxis. Out of bed. Discussed with the patient, nurse Poss DC tomorrow Results - Labs CBC & Chem 7: 02/10/18 03:24 02/11/18 03:56 Laboratory Results - last 24 hr 02/10/18 02/10/18 02/11/18 18:08 18:28 03:56 Potassium 3.8 D POC Glucose 139 H Stl C.difficile Tox PCR Negative St C. diff Tox Epid 027 Negative 02/11/18 12:01 Potassium POC Glucose 156 H Stl C.difficile Tox PCR St C. diff Tox Epid 027 Microbiology 02/08/18 05:47 Blood - Peripheral Aerobic Blood Culture - Preliminary No growth in 3 days 02/08/18 05:47 Blood - Peripheral Anaerobic Blood Culture - Preliminary No growth in 3 days 02/08/18 05:40 Blood - Peripheral Aerobic Blood Culture - Preliminary No growth in 3 days 02/08/18 05:40 Blood - Peripheral Anaerobic Blood Culture - Preliminary No growth in 3 days
[2018-02-11] MEDS: Insulin NovoLOG Aspart Correctional Sugar Inj SQ SCH ×4 (18:32→22:12)
[2018-02-12] MEDS: Potassium Chloride Inj 30 MEQ in Dextrose 5%/NaCl 0.45% Inj 1,000 ML IV.SIG SCH ×2 (06:17→06:18)
[2018-02-12] MEDS: Chlorhexidine Gluconate 2% 1 Pack (2 Cloths) TOPICAL SCH (06:19)
[2018-02-12] MEDS: Enoxaparin Inj 40 MG/0.4 ML Syringe SQ SCH (06:20)
--- NOTE | 2018-02-12 08:36 | P.DS ---
Date of admission: 02/07/18 22:23 Primary care physician: UNKNOWN Brief History from admission: 27-year-old female with past medical history significant of alcohol use disorder presents for an evaluation of abdominal crampy pain, nausea, vomiting and diarrhea. Her diarrhea as well as nausea vomiting are watery in character. She has been also anxious, with some palpitations. In the emergency department she was found to be in severe anion gap metabolic acidosis. DS: Summary Hospital Course: Cancel this discharge summary - Time Spent with Patient Total time spent providing and/or coordinating discharge services: Exam Vital signs: Vital Signs 02/11/18 12:16 02/11/18 16:03 02/11/18 19:12 Temperature 98.2 F 98.9 F Pulse Rate 107 H 95 H Respiratory Rate 20 20 18 Blood Pressure 127/70 126/82 Pulse Oximetry 97 98 02/11/18 19:13 02/11/18 20:00 02/12/18 00:00 Temperature 98.6 F Pulse Rate 82 100 H Respiratory Rate 18 16 16 Blood Pressure 122/77 138/85 Pulse Oximetry 100 100 02/12/18 04:00 Temperature 98.2 F Pulse Rate 99 H Respiratory Rate 16 Blood Pressure 112/60 Pulse Oximetry 100 Intake & Output 02/11/18 02/12/18 02/12/18 18:59 06:59 18:59 Intake Total 900 / 900 Balance 900 / 900 Weight 67.8 kg Intake: Oral 900 / 900 Other: # Voids 12 Date of Last Bowel Movement 02/11/18 02/11/18 Results Procedures completed during hospitalization: cANCEL THIS dc Labs on day of discharge: Labs from last 24 hours 02/12/18 02/11/18 02/11/18 07:18 21:02 18:24 Sodium Pending Potassium Pending Chloride Pending Carbon Dioxide Pending Anion Gap Pending BUN Pending Creatinine Pending POC Glucose 195 H 117 H Random Glucose Pending Calcium Pending Lipase Pending Misc Test Result 02/11/18 02/08/18 12:01 13:45 Sodium Potassium Chloride Carbon Dioxide Anion Gap BUN Creatinine POC Glucose 156 H Random Glucose Calcium Lipase Misc Test Result Preliminary micro results at discharge 02/08/18 05:47 Aerobic Blood Culture - Preliminary Blood - Peripheral No growth in 3 days Anaerobic Blood Culture - Preliminary No growth in 3 days 02/08/18 05:40 Aerobic Blood Culture - Preliminary Blood - Peripheral No growth in 3 days Anaerobic Blood Culture - Preliminary No growth in 3 days - Impressions ITS Impressions Abdomen/Pelvis CT 02/07/18 20:22 CONCLUSION: 1. Findings characteristic of acute pancreatitis with diffuse pancreatic enlargement, induration of the peripancreatic fat and the fat of the mesentery extending into the right lower quadrant, and mild free fluid along Gerota's fascia and right paracolic gutter. 2. Severe steatosis of the liver. 3. No calcified gallstones. Head CT 02/07/18 20:22 CONCLUSION: 1. Negative noncontrast CT brain. Abdomen Ultrasound 02/08/18 00:00 CONCLUSION: Echogenic liver compatible with fatty infiltration or hepatocellular disease. Chest X-Ray 02/08/18 09:46 CONCLUSION: 1. Right IJ catheter in the right atrium without pneumothorax. 2. Otherwise, no acute abnormality. Discharge Plan - Discharge Disposition Patient Disposition: Discharge Home - Discharge Condition Condition: Fair - Discharge Details Anticipated Discharge Date: 02/12/18 - Physicians Team Primary Care Provider: UNKNOWN, Attending Provider: Jolene Garner Other Providers: Joanne Harvey MD
[2018-02-12 09:07] LABS: Anion Gap 8 meq/L (5-15); Blood Urea Nitrogen 5 mg/dL (7-18); Calcium 9.7 mg/dL (8.5-10.1); Carbon Dioxide 26.9 meq/L (21.0-32.0); Chloride 106 meq/L (98-107); Glomerular Filtration Rate Greater Than 89 mL/min (>89); Glucose,Random 93 mg/dL (74-106); Lipase 2735 U/L (73-393); Sodium 141 meq/L (136-145)
[2018-02-12 09:09] LABS: Potassium 4.5 meq/L (3.5-5.1)
[2018-02-12] MEDS: Senna/Docusate Sodium 8.6/50 MG Tablet PO SCH ×2 (09:10→20:44)
[2018-02-12] MEDS: Thiamine Inj 100 MG in Sodium Chlor 0.9% Inj 100 ML IV.SIG SCH (09:11)
[2018-02-12] MEDS: Folic Acid 1 MG Tablet PO SCH (09:11)
[2018-02-12] MEDS: Famotidine 20 MG Tablet PO SCH ×2 (09:11→20:44)
[2018-02-12 12:36] LABS: Total Protein 7.1 g/dL (6.4-8.2)
[2018-02-12] MEDS: Insulin NovoLOG Aspart Correctional Sugar Inj SQ SCH ×3 (12:52→21:00)
--- NOTE | 2018-02-12 13:30 | P.PN ---
Physical Exam Vital signs: Vital Signs 02/11/18 16:03 02/11/18 19:12 02/11/18 19:13 Temperature 98.9 F Pulse Rate 95 H Respiratory Rate 20 18 18 Blood Pressure 126/82 Pulse Oximetry 98 02/11/18 20:00 02/12/18 00:00 02/12/18 04:00 Temperature 98.6 F 98.2 F Pulse Rate 82 100 H 99 H Respiratory Rate 16 16 16 Blood Pressure 122/77 138/85 112/60 Pulse Oximetry 100 100 100 Intake & Output 02/11/18 02/12/18 02/12/18 18:59 06:59 18:59 Intake Total 101 / 101 900 / 900 Balance 101 / 101 900 / 900 Weight 67.8 kg Intake: IV 101 / 101 Thiamine Inj 100 MG In NS Inj 101 / 101 100 ML @ 100 mls/hr IV.SIG DAILY RUTH Rx#:[id number] Oral 900 / 900 Other: # Voids 12 Date of Last Bowel Movement 02/11/18 02/11/18 Narrative: Subjective: Follow-up acute metabolic encephalopathy alcohol dependence, pancreatitis anion gap metabolic acidosis: Able to amanda regular diet. Less pain. Some tremors. She is not comfortable to go. Lipase is still elevated. Since she still has some pain. O Physical examination: GENERAL: Pleasant young female appears not acute distress. CARDIOVASCULAR: Regular, tachycardic, sinus tach on monitor 101. No murmurs rubs or gallops. RESPIRATORY: No accessory muscle use. Clear to auscultation. Breath sounds equal bilaterally. On RA. GASTROINTESTINAL: Abdomen soft, tender in epigastrium. No rebound or guarding. Bowel sounds present. MUSCULOSKELETAL: Extremities without clubbing, cyanosis, or edema. No obvious deformities. NEUROLOGICAL: Awake alert and oriented. Moves all extremities spontaneously. No focal deficit. Assessment and Plan NEURO: EtOH dependence with withdrawals Acute metabolic encephalopathy, resolved CT brain 7/2negative Thiamine/folate acid/multivitamin supplementation. Previously received increased doses of folic acid/pyridoxine per poison control recommendations, now backed off doses. Monitor for signs of alcohol withdrawal, [facility] protocol. Pt states last alcoholic beverage was 02/06. Drinks 2-6 drinks/day Depression Pt was started on citalopram 02/03. States she doesn't want to take it anymore, says she had a seizure 02/04 and attributes it to the med. RESP: On room air CV: Home medication propranolol is for essential tremor, she takes on prn basis and doesn't want to take as of now. GI: Acute pancreatitis Transaminitis Hepatic steatosis Likely secondary to alcohol abuse. Triglyceride level mildly elevated, not the cause of her pancreatitis. . Her only medications were propranolol, single dose of Cipro on 02/03 for ?UTI and single does escitalopram. No evidence of biliary obstruction on CT. abdominal ultrasound 02/09 fatty infiltration of liver. Advance to full liquid diet. Check lipase, trending down however not back to baseline monitor lipase. Lipase daily #2000 at this time. Patient still with pain FEN/RENAL: Very high anion gap metabolic acidosis, anion gap 39 upon presentation. ( resolved) Osmolar gap, 24 (resolved) Alcoholic ketoacidosis (resolved) Hypophosphatemia Hypokalemia Very high anion gap is may have multifactorial secondary to AKA with lactic acidemia and elevated beta hydroxybutyrate. However unable to rule out ethylene glycol toxicity and patient was a poor historian with severe symptoms. Discussed with poison control who recommended initiation of Fomepizole and hemodialysis. I discussed with Dr. Diggs. Right IJ Vas-Cath placed and she underwent HD on 02/08. Osmolar and anion gap now closed. Stop fomepizole. Remove Vascath today if ok with Dr. Diggs. Replace electrolytes per electrolyte replacement protocol. Patient indicated a history of latex allergy and some electrolyte formulations do contain latex. Discussed with pharmacy and they stated that ICU electrolyte protocol should be ordered as usual and that they would make appropriate adjustments. Diarrhea improved continue DC IVF tolerated diet Monitor electrolytes ID: Leukocytosis, likely reactive. (resolved) Monitor for signs and symptoms of infection. Follow-up blood cultures U/a negative for infection. HEME: Monitor CBC ENDO: Acute hyperglycemia Monitor bedside glucose every 6 hours and initiate low-dose insulin sliding scale as indicated. PROPH: SCDs/low for DVT prophylaxis. Pepcid for stress ulcer prophylaxis. Out of bed. Discussed with the patient, nurse Discharge when the pain is improved, lipase back to almost normal. Monitor lipase level. Results - Labs CBC & Chem 7: 02/10/18 03:24 02/12/18 07:18 Laboratory Results - last 24 hr 02/08/18 02/11/18 02/11/18 13:45 18:24 21:02 Sodium Potassium Chloride Carbon Dioxide Anion Gap BUN Creatinine Estimated GFR POC Glucose 117 H 195 H Random Glucose Calcium Total Bilirubin Direct Bilirubin Indirect Bilirubin AST ALT Alkaline Phosphatase Total Protein Albumin Lipase Misc Test Result 02/12/18 02/12/18 02/12/18 07:18 07:18 12:02 Sodium 141 Potassium 4.5 Chloride 106 Carbon Dioxide 26.9 Anion Gap 8 BUN 5 L Creatinine 0.61 Estimated GFR Greater than 89 POC Glucose 128 H Random Glucose 93 Calcium 9.7 Total Bilirubin 1.6 H Direct Bilirubin 0.1 Indirect Bilirubin 1.5 H AST 167 H ALT 61 H Alkaline Phosphatase 295 H Total Protein 7.1 D Albumin 3.0 L Lipase 2735 H Misc Test Result Microbiology 02/08/18 05:47 Blood - Peripheral Aerobic Blood Culture - Preliminary No growth in 4 days 02/08/18 05:47 Blood - Peripheral Anaerobic Blood Culture - Preliminary No growth in 4 days 02/08/18 05:40 Blood - Peripheral Aerobic Blood Culture - Preliminary No growth in 4 days 02/08/18 05:40 Blood - Peripheral Anaerobic Blood Culture - Preliminary No growth in 4 days
[2018-02-13] MEDS: Enoxaparin Inj 40 MG/0.4 ML Syringe SQ SCH (07:44)
[2018-02-13] MEDS: Chlorhexidine Gluconate 2% 1 Pack (2 Cloths) TOPICAL SCH (08:34)
[2018-02-13 09:08] LABS: Alkaline Phosphatase 471 U/L (45-117); Lipase 2150 U/L (73-393); Total Protein 8.3 g/dL (6.4-8.2)
[2018-02-13 09:16] LABS: Alanine Aminotransferase 62 U/L (10-53); Albumin 3.4 g/dL (3.4-5.0); Anion Gap 13 meq/L (5-15); Aspartate Aminotransferase 186 U/L (15-37); Blood Urea Nitrogen 3 mg/dL (7-18); Carbon Dioxide 22.7 meq/L (21.0-32.0); Chloride 100 meq/L (98-107); Glomerular Filtration Rate Greater Than 89 mL/min (>89); Glucose,Random 74 mg/dL (74-106); Potassium 4.7 meq/L (3.5-5.1); Sodium 136 meq/L (136-145)
[2018-02-13] MEDS: Insulin NovoLOG Aspart Correctional Sugar Inj SQ SCH ×3 (09:31→16:08)
[2018-02-13] MEDS: Famotidine 20 MG Tablet PO SCH ×2 (09:33→20:46)
[2018-02-13] MEDS: Folic Acid 1 MG Tablet PO SCH (09:34)
[2018-02-13] MEDS: Senna/Docusate Sodium 8.6/50 MG Tablet PO SCH ×2 (09:34→20:43)
[2018-02-13] MEDS: Thiamine Inj 100 MG in Sodium Chlor 0.9% Inj 100 ML IV.SIG SCH (09:38)
--- NOTE | 2018-02-13 09:43 | P.PN ---
Physical Exam Vital signs: Vital Signs 02/12/18 12:00 02/12/18 20:15 02/12/18 22:32 Temperature 98 F 97.9 F Pulse Rate 108 H 83 Respiratory Rate 16 16 18 Blood Pressure 121/84 121/84 Pulse Oximetry 97 98 02/13/18 00:40 02/13/18 04:00 Temperature 98.2 F 98 F Pulse Rate 86 88 Respiratory Rate 18 18 Blood Pressure 120/73 119/74 Pulse Oximetry 99 99 Intake & Output 02/12/18 02/13/18 02/13/18 18:59 06:59 18:59 Intake Total 101 / 101 0 / 0 Balance 101 / 101 0 / 0 Weight 67.8 kg Intake: IV 101 / 101 0 / 0 KCl Inj 30 MEQ In D5W/1/2 NS 0 / 0 Inj 1,000 ML @ 125 mls/hr IV. SIG .[id number] [facility] Rx#:[id number] Thiamine Inj 100 MG In NS Inj 101 / 101 100 ML @ 100 mls/hr IV.SIG DAILY R[facility] Rx#:[id number] Other: # Voids 3 Narrative: Subjective: Follow-up acute metabolic encephalopathy alcohol dependence, pancreatitis anion gap metabolic acidosis: Some abdominal pain. [place] nauseated last night, di not vomit, keeps down food but not eating much. Minimal tremors, says she has essential tremors and not related with to ETOH . She is not comfortable to go home. Lipase is still elevated and still with abd pain , not eating much and also intermittent nausea. Physical examination: GENERAL: Pleasant young female appears not acute distress. CARDIOVASCULAR: Regular, tachycardic, sinus tach on monitor 101. No murmurs rubs or gallops. RESPIRATORY: No accessory muscle use. Clear to auscultation. Breath sounds equal bilaterally. On RA. GASTROINTESTINAL: BS + x4Q. Abdomen soft, tender in epigastrium. No rebound or guarding. MUSCULOSKELETAL: Extremities without clubbing, cyanosis, or edema. No obvious deformities. NEUROLOGICAL: Awake alert and oriented. Moves all extremities spontaneously. No focal deficit. Assessment and Plan NEURO: EtOH dependence with withdrawals, withdrawals resolved. Acute metabolic encephalopathy, resolved CT brain 7/2negative Thiamine/folate acid/multivitamin supplementation. Previously received increased doses of folic acid/pyridoxine per poison control recommendations, now backed off doses. Monitor for signs of alcohol withdrawal, [facility] protocol. Pt states last alcoholic beverage was 02/06. Drinks 2-6 drinks/day Depression Pt was started on citalopram 02/03. States she doesn't want to take it anymore, says she had a seizure 02/04 and attributes it to the med. RESP: On room air CV: Home medication propranolol is for essential tremor, she takes on prn basis and doesn't want to take as of now. GI: Acute pancreatitis Transaminitis Hepatic steatosis Likely secondary to alcohol abuse. Triglyceride level mildly elevated, not the cause of her pancreatitis. . Her only medications were propranolol, single dose of Cipro on 02/03 for ?UTI and single does escitalopram. No evidence of biliary obstruction on CT. abdominal ultrasound 02/09 fatty infiltration of liver. Advance to full liquid diet. Check lipase, trending down however not back to baseline monitor lipase. Lipase daily #2000 at this time. Patient still with pain FEN/RENAL: Very high anion gap metabolic acidosis, anion gap 39 upon presentation. ( resolved) Osmolar gap, 24 (resolved) Alcoholic ketoacidosis (resolved) Hypophosphatemia Hypokalemia Very high anion gap is may have multifactorial secondary to AKA with lactic acidemia and elevated beta hydroxybutyrate. However unable to rule out ethylene glycol toxicity and patient was a poor historian with severe symptoms. Discussed with poison control who recommended initiation of Fomepizole and hemodialysis. I discussed with Dr. Diggs. Right IJ Vas-Cath placed and she underwent HD on 02/08. Osmolar and anion gap now closed. Stop fomepizole. Remove Vascath today if ok with Dr. Diggs. Replace electrolytes per electrolyte replacement protocol. Patient indicated a history of latex allergy and some electrolyte formulations do contain latex. Discussed with pharmacy and they stated that ICU electrolyte protocol should be ordered as usual and that they would make appropriate adjustments. Diarrhea improved continue DC IVF tolerated diet Monitor electrolytes ID: Leukocytosis, likely reactive. (resolved) Monitor for signs and symptoms of infection. Follow-up blood cultures U/a negative for infection. HEME: Monitor CBC ENDO: Acute hyperglycemia Monitor bedside glucose every 6 hours and initiate low-dose insulin sliding scale as indicated. PROPH: SCDs/low for DVT prophylaxis. Pepcid for stress ulcer prophylaxis. Out of bed. Discussed with the patient, nurse Discharge when the pain is improved, lipase back to almost normal. Monitor lipase level. Lipase is still elevated and still with abd pain , not eating much and also intermittent nausea. Results - Labs CBC & Chem 7: 02/10/18 03:24 02/13/18 07:10 Laboratory Results - last 24 hr 02/12/18 02/12/18 02/12/18 07:18 12:02 17:05 Sodium Potassium Chloride Carbon Dioxide Anion Gap BUN Creatinine Estimated GFR POC Glucose 128 H 131 H Random Glucose Calcium Total Bilirubin 1.6 H Direct Bilirubin 0.1 Indirect Bilirubin 1.5 H AST 167 H ALT 61 H Alkaline Phosphatase 295 H Total Protein 7.1 D Albumin 3.0 L Lipase 02/12/18 02/13/18 02/13/18 21:58 07:10 08:54 Sodium 136 Potassium 4.7 Chloride 100 Carbon Dioxide 22.7 Anion Gap 13 BUN 3 L Creatinine 0.57 Estimated GFR Greater than 89 POC Glucose 143 H 148 H Random Glucose 74 Calcium 10.0 Total Bilirubin 1.8 H Direct Bilirubin Indirect Bilirubin AST 186 H ALT 62 H Alkaline Phosphatase 471 H Total Protein 8.3 H D Albumin 3.4 Lipase 2150 H Microbiology 02/08/18 05:47 Blood - Peripheral Aerobic Blood Culture - Preliminary No growth in 4 days 02/08/18 05:47 Blood - Peripheral Anaerobic Blood Culture - Preliminary No growth in 4 days 02/08/18 05:40 Blood - Peripheral Aerobic Blood Culture - Preliminary No growth in 4 days 02/08/18 05:40 Blood - Peripheral Anaerobic Blood Culture - Preliminary No growth in 4 days
[2018-02-13] MEDS: Potassium Chloride Inj 30 MEQ in Dextrose 5%/NaCl 0.45% Inj 1,000 ML IV.SIG SCH ×2 (11:22→11:23)
[2018-02-14] MEDS: Enoxaparin Inj 40 MG/0.4 ML Syringe SQ SCH (06:27)
[2018-02-14] MEDS: Insulin NovoLOG Aspart Correctional Sugar Inj SQ SCH ×3 (08:36→17:01)
[2018-02-14] MEDS: Senna/Docusate Sodium 8.6/50 MG Tablet PO SCH ×2 (08:37→20:41)
[2018-02-14] MEDS: Folic Acid 1 MG Tablet PO SCH (08:37)
[2018-02-14] MEDS: Famotidine 20 MG Tablet PO SCH ×2 (08:38→20:41)
[2018-02-14 09:10] LABS: Alanine Aminotransferase 56 U/L (10-53); Albumin 3.1 g/dL (3.4-5.0); Anion Gap 11 meq/L (5-15); Aspartate Aminotransferase 190 U/L (15-37); Blood Urea Nitrogen 4 mg/dL (7-18); Calcium 9.6 mg/dL (8.5-10.1); Carbon Dioxide 25.6 meq/L (21.0-32.0); Chloride 101 meq/L (98-107); Glomerular Filtration Rate Greater Than 89 mL/min (>89); Glucose,Random 85 mg/dL (74-106); Potassium 3.1 meq/L (3.5-5.1); Sodium 138 meq/L (136-145)
[2018-02-14 09:15] LABS: Alkaline Phosphatase 567 U/L (45-117); Lipase 2062 U/L (73-393); Total Protein 7.6 g/dL (6.4-8.2)
[2018-02-14] MEDS: Thiamine Inj 100 MG in Sodium Chlor 0.9% Inj 100 ML IV.SIG SCH (09:32)
--- NOTE | 2018-02-14 11:14 | P.PN ---
Physical Exam Vital signs: Vital Signs 02/13/18 12:00 02/13/18 20:00 02/13/18 20:10 Temperature 97.9 F 98.2 F Pulse Rate 94 H 103 H 96 H Respiratory Rate 16 16 Blood Pressure 114/82 126/80 Pulse Oximetry 100 100 02/14/18 00:00 02/14/18 04:00 02/14/18 08:00 Temperature 97.9 F 97.5 F L 98.2 F Pulse Rate 96 H 95 H 102 H Respiratory Rate 16 16 17 Blood Pressure 120/72 122/83 125/80 Pulse Oximetry 100 100 100 Intake & Output 02/13/18 02/14/18 02/14/18 18:59 06:59 18:59 Intake Total 201 / 201 720 / 720 Balance 201 / 201 720 / 720 Intake: IV 201 / 201 Thiamine Inj 100 MG In NS Inj 101 / 101 100 ML @ 100 mls/hr IV.SIG DAILY R[facility] Rx#:[id number] Oral 720 / 720 Other: # Voids 6 Date of Last Bowel Movement 02/11/18 # Bowel Movements 0 Narrative: Subjective: Follow-up acute metabolic encephalopathy alcohol dependence, pancreatitis anion gap metabolic acidosis: Some abdominal pain. Lipase is still elevated and still with abd pain , not eating much and also intermittent nausea. The patient lactulose. Discussed with the patient. No nausea or vomiting. Physical examination: GENERAL: Pleasant young female appears not acute distress. CARDIOVASCULAR: Regular, tachycardic, sinus tach on monitor 101. No murmurs rubs or gallops. RESPIRATORY: No accessory muscle use. Clear to auscultation. Breath sounds equal bilaterally. On RA. GASTROINTESTINAL: Bowel sounds present. Abdomen soft, mild epigastric tenderness. MUSCULOSKELETAL: Extremities without clubbing, cyanosis, or edema. No obvious deformities. NEUROLOGICAL: Awake alert and oriented. Moves all extremities spontaneously. No focal deficit. Assessment and Plan NEURO: EtOH dependence with withdrawals, withdrawals resolved. Acute metabolic encephalopathy, resolved CT brain 7/2negative Thiamine/folate acid/multivitamin supplementation. Previously received increased doses of folic acid/pyridoxine per poison control recommendations, now backed off doses. Monitor for signs of alcohol withdrawal, [facility] protocol. Pt states last alcoholic beverage was 02/06. Drinks 2-6 drinks/day Depression Pt was started on citalopram 02/03. States she doesn't want to take it anymore, says she had a seizure 02/04 and attributes it to the med. RESP: On room air CV: Home medication propranolol is for essential tremor, she takes on prn basis and doesn't want to take as of now. GI: Acute pancreatitis Transaminitis Hepatic steatosis Likely secondary to alcohol abuse. Triglyceride level mildly elevated, not the cause of her pancreatitis. . Her only medications were propranolol, single dose of Cipro on 02/03 for ?UTI and single does escitalopram. No evidence of biliary obstruction on CT. abdominal ultrasound 02/09 fatty infiltration of liver. Advance to full liquid diet. Check lipase, trending down however not back to baseline monitor lipase. Lipase daily #2000 at this time. Patient still with pain FEN/RENAL: Very high anion gap metabolic acidosis, anion gap 39 upon presentation. ( resolved) Osmolar gap, 24 (resolved) Alcoholic ketoacidosis (resolved) Hypophosphatemia Hypokalemia Very high anion gap is may have multifactorial secondary to AKA with lactic acidemia and elevated beta hydroxybutyrate. However unable to rule out ethylene glycol toxicity and patient was a poor historian with severe symptoms. Discussed with poison control who recommended initiation of Fomepizole and hemodialysis. I discussed with Dr. Diggs. Right IJ Vas-Cath placed and she underwent HD on 02/08. Osmolar and anion gap now closed. Stop fomepizole. Remove Vascath today if ok with Dr. Diggs. Replace electrolytes per electrolyte replacement protocol. Patient indicated a history of latex allergy and some electrolyte formulations do contain latex. Discussed with pharmacy and they stated that ICU electrolyte protocol should be ordered as usual and that they would make appropriate adjustments. Diarrhea improved continue DC IVF tolerated diet Monitor electrolytes ID: Leukocytosis, likely reactive. (resolved) Monitor for signs and symptoms of infection. Follow-up blood cultures U/a negative for infection. HEME: Monitor CBC ENDO: Acute hyperglycemia Monitor bedside glucose every 6 hours and initiate low-dose insulin sliding scale as indicated. PROPH: SCDs/low for DVT prophylaxis. Pepcid for stress ulcer prophylaxis. Out of bed. Discussed with the patient, nurse Discharge when the pain is improved, lipase back to almost normal. Monitor lipase level. Lipase is still elevated and still with abd pain , not eating much. Results - Labs CBC & Chem 7: 02/10/18 03:24 02/14/18 07:12 Laboratory Results - last 24 hr 02/13/18 02/13/18 02/13/18 11:54 15:34 22:19 Sodium Potassium Chloride Carbon Dioxide Anion Gap BUN Creatinine Estimated GFR POC Glucose 85 88 126 H Random Glucose Calcium Total Bilirubin AST ALT Alkaline Phosphatase Total Protein Albumin Lipase 02/14/18 02/14/18 07:12 08:34 Sodium 138 Potassium 3.1 L D Chloride 101 Carbon Dioxide 25.6 Anion Gap 11 BUN 4 L Creatinine 0.56 Estimated GFR Greater than 89 POC Glucose 102 Random Glucose 85 Calcium 9.6 Total Bilirubin 1.1 H AST 190 H ALT 56 H Alkaline Phosphatase 567 H Total Protein 7.6 D Albumin 3.1 L Lipase 2062 H Microbiology 02/08/18 05:47 Blood - Peripheral Aerobic Blood Culture - Final No growth in 5 days 02/08/18 05:47 Blood - Peripheral Anaerobic Blood Culture - Final No growth in 5 days 02/08/18 05:40 Blood - Peripheral Aerobic Blood Culture - Final No growth in 5 days 02/08/18 05:40 Blood - Peripheral Anaerobic Blood Culture - Final No growth in 5 days
[2018-02-14] MEDS ORDERED: hydrALAZINE 10 MG Tablet PO PRN (11:17)
[2018-02-14] MEDS ORDERED: Metoprolol Tartrate 25 MG Tablet PO ONE (11:21)
[2018-02-14] MEDS ORDERED: Metoprolol Tartrate 25 MG Tablet PO SCH (21:00)
[2018-02-15] MEDS: Enoxaparin Inj 40 MG/0.4 ML Syringe SQ SCH (05:40)
[2018-02-15] MEDS: Folic Acid 1 MG Tablet PO SCH (09:11)
[2018-02-15] MEDS: Senna/Docusate Sodium 8.6/50 MG Tablet PO SCH ×2 (09:11→21:46)
[2018-02-15] MEDS: Famotidine 20 MG Tablet PO SCH ×2 (09:12→21:46)
[2018-02-15] MEDS: Magnesium Oxide 400 MG Tablet PO SCH (09:12)
[2018-02-15] MEDS: Thiamine Inj 100 MG in Sodium Chlor 0.9% Inj 100 ML IV.SIG SCH (09:24)
[2018-02-15] MEDS: Insulin NovoLOG Aspart Correctional Sugar Inj SQ SCH ×4 (09:28→21:45)
[2018-02-15 10:21] LABS: Alanine Aminotransferase 53 U/L (10-53); Albumin 3.4 g/dL (3.4-5.0); Anion Gap 11 meq/L (5-15); Aspartate Aminotransferase 166 U/L (15-37); Blood Urea Nitrogen 7 mg/dL (7-18); Calcium 9.2 mg/dL (8.5-10.1); Carbon Dioxide 22.5 meq/L (21.0-32.0); Chloride 106 meq/L (98-107); Glucose,Random 117 mg/dL (74-106); Potassium 3.5 meq/L (3.5-5.1); Sodium 139 meq/L (136-145)
[2018-02-15 10:23] LABS: Alkaline Phosphatase 563 U/L (45-117); Lipase 2605 U/L (73-393); Total Protein 7.9 g/dL (6.4-8.2)
--- NOTE | 2018-02-15 14:50 | P.PN ---
Physical Exam Vital signs: Vital Signs 02/14/18 16:00 02/14/18 20:37 02/15/18 00:04 Temperature 97.5 F L 98.2 F 98.0 F Pulse Rate 87 91 H 91 H Respiratory Rate 18 Blood Pressure 148/75 H 114/72 123/83 Pulse Oximetry 100 96 97 02/15/18 04:26 02/15/18 08:00 02/15/18 10:09 Temperature 98.3 F 98.4 F Pulse Rate 85 102 H Respiratory Rate 18 Blood Pressure 113/74 128/79 Pulse Oximetry 96 97 Intake & Output 02/14/18 02/15/18 02/15/18 18:59 06:59 18:59 Intake Total 1061 / 1061 720 / 720 Balance 1061 / 1061 720 / 720 Weight 67.6 kg Intake: IV 101 / 101 Thiamine Inj 100 MG In NS Inj 101 / 101 100 ML @ 100 mls/hr IV.SIG DAILY [facility] Rx#:[id number] Oral 960 / 960 720 / 720 Other: # Voids 8 Date of Last Bowel Movement 02/14/18 02/14/18 # Bowel Movements 1 1 Narrative: Subjective: Follow-up acute metabolic encephalopathy alcohol dependence, pancreatitis anion gap metabolic acidosis: Some abdominal pain. Lipase is still elevated and still with abd pain. Discussed with the patient. No nausea or vomiting. However patient had a blood yBM per patient nos seen by the nurse. Will consult GI for eval Physical examination: GENERAL: Pleasant young female appears not acute distress. CARDIOVASCULAR: Regular, tachycardic, sinus tach on monitor 101. No murmurs rubs or gallops. RESPIRATORY: No accessory muscle use. Clear to auscultation. Breath sounds equal bilaterally. On RA. GASTROINTESTINAL: Bowel sounds present. Abdomen soft, mild epigastric tenderness. MUSCULOSKELETAL: Extremities without clubbing, cyanosis, or edema. No obvious deformities. NEUROLOGICAL: Awake alert and oriented. Moves all extremities spontaneously. No focal deficit. Assessment and Plan NEURO: EtOH dependence with withdrawals, withdrawals resolved. Acute metabolic encephalopathy, resolved CT brain 7/2negative Thiamine/folate acid/multivitamin supplementation. Previously received increased doses of folic acid/pyridoxine per poison control recommendations, now backed off doses. Monitor for signs of alcohol withdrawal, [facility] protocol. Pt states last alcoholic beverage was 7/1. Drinks 2-6 drinks/day Depression Pt was started on citalopram 02/03. States she doesn't want to take it anymore, says she had a seizure 02/04 and attributes it to the med. RESP: On room air CV: Home medication propranolol is for essential tremor, she takes on prn basis and doesn't want to take as of now. GI: Acute pancreatitis Transaminitis Hepatic steatosis Rectal bleeding per patient sepcimen was not seen by the nurse. Monitor H/H consult GI Likely secondary to alcohol abuse. Triglyceride level mildly elevated, not the cause of her pancreatitis. . Her only medications were propranolol, single dose of Cipro on 02/03 for ?UTI and single does escitalopram. No evidence of biliary obstruction on CT. abdominal ultrasound 02/09 fatty infiltration of liver. Advance to full liquid diet. Check lipase, trending down however not back to baseline monitor lipase. Lipase daily #2000 at this time. Patient still with pain FEN/RENAL: Very high anion gap metabolic acidosis, anion gap 39 upon presentation. ( resolved) Osmolar gap, 24 (resolved) Alcoholic ketoacidosis (resolved) Hypophosphatemia Hypokalemia Very high anion gap is may have multifactorial secondary to AKA with lactic acidemia and elevated beta hydroxybutyrate. However unable to rule out ethylene glycol toxicity and patient was a poor historian with severe symptoms. Discussed with poison control who recommended initiation of Fomepizole and hemodialysis. I discussed with Dr. Diggs. Right IJ Vas-Cath placed and she underwent HD on 02/08. Osmolar and anion gap now closed. Stop fomepizole. Remove Vascath today if ok with Dr. Diggs. Replace electrolytes per electrolyte replacement protocol. Patient indicated a history of latex allergy and some electrolyte formulations do contain latex. Discussed with pharmacy and they stated that ICU electrolyte protocol should be ordered as usual and that they would make appropriate adjustments. Diarrhea improved continue DC IVF tolerated diet Monitor electrolytes ID: Leukocytosis, likely reactive. (resolved) Monitor for signs and symptoms of infection. Follow-up blood cultures U/a negative for infection. HEME: Monitor CBC ENDO: Acute hyperglycemia Monitor bedside glucose every 6 hours and initiate low-dose insulin sliding scale as indicated. PROPH: SCDs/low for DVT prophylaxis. Pepcid for stress ulcer prophylaxis. Out of bed. Discussed with the patient, nurse Discharge when the pain is improved, lipase back to almost normal. Monitor lipase level. Lipase is still elevated and still with abd pain , not eating much. Results - Labs CBC & Chem 7: 02/10/18 03:24 02/15/18 08:45 Laboratory Results - last 24 hr 02/09/18 02/14/18 02/15/18 07:55 16:55 00:20 Sodium Potassium Chloride Carbon Dioxide Anion Gap BUN Creatinine POC Glucose 114 H 103 Random Glucose Calcium Magnesium Total Bilirubin AST ALT Alkaline Phosphatase Total Protein Albumin Lipase Misc Test Result 02/15/18 02/15/18 02/15/18 08:45 09:17 13:06 Sodium 139 Potassium 3.5 Chloride 106 Carbon Dioxide 22.5 Anion Gap 11 BUN 7 Creatinine 0.64 POC Glucose 158 H 111 H Random Glucose 117 H Calcium 9.2 Magnesium Total Bilirubin 0.8 AST 166 H ALT 53 Alkaline Phosphatase 563 H Total Protein 7.9 Albumin 3.4 Lipase 2605 H Misc Test Result 02/15/18 13:39 Sodium Potassium Chloride Carbon Dioxide Anion Gap BUN Creatinine POC Glucose Random Glucose Calcium Magnesium 1.9 Total Bilirubin AST ALT Alkaline Phosphatase Total Protein Albumin Lipase Misc Test Result
--- NOTE | 2018-02-15 17:47 | P.CONGI ---
History of Present Illness Consult date: 02/15/18 Consult reason: Bright red rectal bleeding Chief complaint: Severe Anion Gap Acidosis, Acute Pancreatitis History of Present Illness: This is a 27-year-old female who was admitted on 02/07/2018 with acute onset of pancreatitis. Patient has been managed in the hospital with IV hydration, pain management and symptom management. Since her hospital stay patient has noted constipation and admits to straining and a history of hemorrhoids. On 2 separate occasions within the past 2 days patient has had a stool covered and bright red blood and blood noted in the toilet after her bowel movement. Patient states one other episode within 24 hours when straining and noted bright red rectal bleeding. Patient states severe rectal pain and abdominal pain 8 out of 10 during her defecation and straining. Relieving factors were getting back in the bed and propping her feet up. patient was placed on bowel regimen and was instructed not to strain. Labs show bilirubin noted 0.8, AST 166 ALT 53 and alkaline phosphatase 563. Her transaminitis is probably related to her acute pancreatitis plus she is a consumer of alcohol greater than 4 times a week. Patient denies any family history of colon cancer no previous EGD or colonoscopy. Patient also noted to have hand tremors and be a fair to poor historian with rambling conversation. New lipase level drawn on 02/15/2018 shows 2605. Last hemoglobin drawn on 02/10/2018 is 11.2. <Anne Eason - Last Filed: 02/15/18 17:48> Review of Systems All other systems reviewed negative except as stated in HPI <Anne Eason - Last Filed: 02/15/18 17:48> [facility] - History History Provided By: Patient - Medical History Medical History: Medical History (Last Updated 02/07/18 @ 22:57 by Nila Moya) Anxiety Depression Occasional tremors Seizures - Surgical History Surgical History: Surgical History (Last Updated 02/07/18 @ 22:56 by Nila Moya) History of placement of ear tubes - Tobacco History Tobacco Use In Past 30 Days: Yes Smoking Status: Heavy tobacco smoker Tobacco Type: Cigarettes - Alcohol History How Often Do You Have a Drink Containing Alcohol: 4 or more times a week - Substance Use History Substance History: No History of Abuse - Travel History Recent Travel in the [place] Within the Last 8 Weeks: No Recent Travel Out of the Country Within the Last 8 Weeks: No - Immunization History Tetanus Immunization: Unsure Hx Influenza Vaccine This Season: No <Anne Eason - Last Filed: 02/15/18 17:48> - Medical History Medical History: Medical History (Last Updated 02/07/18 @ 22:57 by Nila Moya) Anxiety Depression Occasional tremors Seizures - Surgical History Surgical History: Surgical History (Last Updated 02/07/18 @ 22:56 by Nila Moya) History of placement of ear tubes <Joanne Harvey - Last Filed: 02/16/18 06:41> Medications and Allergies Active Medications: Active Medications Acetaminophen (Tylenol) 650 mg PO Q6H PRN PRN Reason: PAIN 1-10 AND/OR FEVER >101F Acetaminophen (Tylenol) 650 mg PO UNSCH PRN PRN Reason: SEE LABEL COMMENTS Albuterol (Duoneb Neb (Prn)) 1 ampul NEB Q2HR NEB PRN PRN Reason: WHEEZING Bisacodyl (Dulcolax Supp) 10 mg RECTAL DAILY PRN PRN Reason: SEVERE CONSITIPATION Clonidine HCl (Catapres) 0.1 mg PO UNSCH PRN PRN Reason: SEE LABEL COMMENTS Dextrose (D50w Vial) 50 ml IV.PUSH UNSCH PRN PRN Reason: PER HYPOGLYCEMIA PROTOCOL Diphenhydramine HCl (Benadryl) 25 mg PO UNSCH PRN PRN Reason: SEE LABEL COMMENTS Enoxaparin Sodium (Lovenox Inj) 40 mg SQ Q24H [facility] Last Admin: 02/15/18 05:40 Dose: 40 mg Famotidine (Pepcid) 20 mg PO BID [facility] Last Admin: 02/15/18 09:12 Dose: 20 mg Flumazenil (Romazecon Inj) 0.2 mg IV.PUSH Q1M PRN PRN Reason: OVERSEDATION Folic Acid (Folic Acid) 1 mg PO DAILY [facility] Last Admin: 02/15/18 09:11 Dose: 1 mg Gelatin (Gelfoam 12 Mm/7 Mm Topical) 1 foam TOPICAL PRN PRN PRN Reason: help stop bleeding from site Gentamicin Sulfate (Gentamicin Inj) 20 mg OTHER WITH DIALYSIS PRN PRN Reason: Dwell Gentamycin Lock Last Admin: 02/08/18 12:00 Dose: 20 mg Glucagon (Glucagon Inj) 1 mg OTHER PRN PRN PRN Reason: for Hypoglycemia Protocol Haloperidol Lactate (Haldol Inj) 1 mg IV.PUSH Q15M PRN PRN Reason: for severe agitation Heparin Sodium (Porcine) (Heparin Inj) 8,000 units IV.FLUSH WITH DIALYSIS PRN PRN Reason: for machine prime Heparin Sodium (Porcine) (Heparin Inj) 1,000 units OTHER WITH DIALYSIS PRN PRN Reason: Dwell Heparin to Fill Catheter Thiamine HCl 100 mg/ Sodium (Chloride) 101 mls @ 100 mls/hr IV.SIG DAILY [facility] Last Admin: 02/15/18 09:24 Dose: 100 mls/hr Sodium Chloride (Ns Inj) 1,000 mls @ 0 mls/hr OTHER .Q0M PRN PRN Reason: for prime and rinse back Sodium Chloride (Ns Inj) 1,000 mls @ 200 mls/hr OTHER .Q5H PRN PRN Reason: for dialyzer flush PRN Albumin Human (Flexbumin 25% Inj) 100 mls @ 60 mls/hr IV.SIG WITH DIALYSIS PRN PRN Reason: hypotension / volume replace Sodium Chloride (Ns Inj) 1,000 mls @ 0 mls/hr IV.CONT .Q0M PRN PRN Reason: hypotension / volume replace Potassium Chloride 30 meq/ (Dextrose/Sodium Chloride) 1,015 mls @ 125 mls/hr IV.SIG .Q8H8M [facility] Last Admin: 02/13/18 11:23 Dose: Not Given Insulin Aspart (Novolog Insulin Suppl Scale Inj) 0 unit SQ ACHS [facility]; Protocol Last Admin: 02/15/18 13:08 Dose: Not Given Lactulose (Lactulose Liq) 30 ml PO DAILY PRN PRN Reason: SEVERE CONSITIPATION Lorazepam (Ativan) 1 mg PO Q4H PRN PRN Reason: for CIWA 8-10 Lorazepam (Ativan) 2 mg PO Q2H PRN PRN Reason: for CIWA 11-14 Lorazepam (Ativan Inj) 2 mg IV.PUSH Q1H PRN PRN Reason: for CIWA 15-20 Lorazepam (Ativan Inj) 2 mg IV.PUSH Q15M PRN PRN Reason: for CIWA > 20 Lorazepam (Ativan Inj) 1 mg IV.PUSH Q4H PRN PRN Reason: for CIWA 8-10 Lorazepam (Ativan Inj) 2 mg IV.PUSH Q2H PRN PRN Reason: for CIWA 11-14 Magnesium Oxide (Mag-Ox) 400 mg PO DAILY [facility] Last Admin: 02/15/18 09:12 Dose: 400 mg Mannitol (Mannitol Inj) 12.5 gm IV.PUSH PRN PRN PRN Reason: hypotension / volume replace Morphine Sulfate (Morphine Inj) 2 mg IV.PUSH Q2H PRN PRN Reason: BREAKTHROUGH PAIN Last Admin: 02/09/18 20:47 Dose: 2 mg Nitroglycerin (Nitrostat Sl) 0.4 mg SL Q5M PRN PRN Reason: CHEST PAIN Ondansetron HCl (Zofran Inj) 4 mg IV.PUSH Q6H PRN PRN Reason: NAUSEA OR VOMITING Last Admin: 02/15/18 02:06 Dose: 4 mg Ondansetron HCl (Zofran Odt) 4 mg PO UNSCH PRN PRN Reason: NAUSEA OR VOMITING Last Admin: 02/10/18 05:15 Dose: 4 mg Oxycodone/Acetaminophen (Percocet 5/325 Mg) 1 tab PO Q4H PRN PRN Reason: PAIN SCALE 1 TO 5 OR COUGHING Last Admin: 02/12/18 09:10 Dose: 1 tab Oxycodone/Acetaminophen (Percocet 5/325 Mg) 2 tab PO Q4H PRN PRN Reason: PAIN SCALE 6 TO 10 Last Admin: 02/15/18 13:35 Dose: 2 tab Potassium Bicarb/Potassium Chloride (K-Lyte Cl Eff) 50 meq PO UNSCH PRN PRN Reason: For Potassium 3.3 - 3.5 mEq/L Senna/Docusate Sodium (Sara-Colace) 1 tab PO BID [facility] Last Admin: 02/15/18 09:11 Dose: 1 tab Sennosides (Senokot) 17.2 mg PO Q12H PRN PRN Reason: Moderate Constipation Sodium Chloride (Ns Flush) 2 ml IV.FLUSH PRN PRN PRN Reason: FLUSH AFTER USING IV ACCESS Sodium Chloride (Ns Flush) 2 ml IV.FLUSH PRN PRN PRN Reason: FLUSH AFTER USING IV ACCESS Sodium Chloride (Ns Flush) 2 ml IV.FLUSH BID [facility] Last Admin: 02/15/18 09:15 Dose: 2 ml Sodium Chloride (Ns Flush) 5 ml IV.FLUSH PRN PRN PRN Reason: flush each lumen during HD <Anne Eason M - Last Filed: 02/15/18 17:48> Active Medications: Active Medications Acetaminophen (Tylenol) 650 mg PO Q6H PRN PRN Reason: PAIN 1-10 AND/OR FEVER >101F Acetaminophen (Tylenol) 650 mg PO UNSCH PRN PRN Reason: SEE LABEL COMMENTS Albuterol (Duoneb Neb (Prn)) 1 ampul NEB Q2HR NEB PRN PRN Reason: WHEEZING Bisacodyl (Dulcolax Supp) 10 mg RECTAL DAILY PRN PRN Reason: SEVERE CONSITIPATION Clonidine HCl (Catapres) 0.1 mg PO UNSCH PRN PRN Reason: SEE LABEL COMMENTS Dextrose (D50w Vial) 50 ml IV.PUSH UNSCH PRN PRN Reason: PER HYPOGLYCEMIA PROTOCOL Diphenhydramine HCl (Benadryl) 25 mg PO UNSCH PRN PRN Reason: SEE LABEL COMMENTS Enoxaparin Sodium (Lovenox Inj) 40 mg SQ Q24H [facility] Last Admin: 02/16/18 06:28 Dose: 40 mg Famotidine (Pepcid) 20 mg PO BID [facility] Last Admin: 02/15/18 21:46 Dose: 20 mg Flumazenil (Romazecon Inj) 0.2 mg IV.PUSH Q1M PRN PRN Reason: OVERSEDATION Folic Acid (Folic Acid) 1 mg PO DAILY [facility] Last Admin: 02/15/18 09:11 Dose: 1 mg Gelatin (Gelfoam 12 Mm/7 Mm Topical) 1 foam TOPICAL PRN PRN PRN Reason: help stop bleeding from site Gentamicin Sulfate (Gentamicin Inj) 20 mg OTHER WITH DIALYSIS PRN PRN Reason: Dwell Gentamycin Lock Last Admin: 02/08/18 12:00 Dose: 20 mg Glucagon (Glucagon Inj) 1 mg OTHER PRN PRN PRN Reason: for Hypoglycemia Protocol Haloperidol Lactate (Haldol Inj) 1 mg IV.PUSH Q15M PRN PRN Reason: for severe agitation Heparin Sodium (Porcine) (Heparin Inj) 8,000 units IV.FLUSH WITH DIALYSIS PRN PRN Reason: for machine prime Heparin Sodium (Porcine) (Heparin Inj) 1,000 units OTHER WITH DIALYSIS PRN PRN Reason: Dwell Heparin to Fill Catheter Hydrocortisone Acetate (Hemorrhoidal Hc Supp) 25 mg RECTAL BID [facility] Last Admin: 02/15/18 21:47 Dose: 25 mg Thiamine HCl 100 mg/ Sodium (Chloride) 101 mls @ 100 mls/hr IV.SIG DAILY [facility] Last Admin: 02/15/18 09:24 Dose: 100 mls/hr Sodium Chloride (Ns Inj) 1,000 mls @ 0 mls/hr OTHER .Q0M PRN PRN Reason: for prime and rinse back Sodium Chloride (Ns Inj) 1,000 mls @ 200 mls/hr OTHER .Q5H PRN PRN Reason: for dialyzer flush PRN Albumin Human (Flexbumin 25% Inj) 100 mls @ 60 mls/hr IV.SIG WITH DIALYSIS PRN PRN Reason: hypotension / volume replace Sodium Chloride (Ns Inj) 1,000 mls @ 0 mls/hr IV.CONT .Q0M PRN PRN Reason: hypotension / volume replace Potassium Chloride 30 meq/ (Dextrose/Sodium Chloride) 1,015 mls @ 125 mls/hr IV.SIG .Q8H8M [facility] Last Admin: 02/13/18 11:23 Dose: Not Given Insulin Aspart (Novolog Insulin Suppl Scale Inj) 0 unit SQ ACHS [facility]; Protocol Last Admin: 02/15/18 21:45 Dose: Not Given Lactulose (Lactulose Liq) 30 ml PO DAILY PRN PRN Reason: SEVERE CONSITIPATION Lorazepam (Ativan) 1 mg PO Q4H PRN PRN Reason: for CIWA 8-10 Lorazepam (Ativan) 2 mg PO Q2H PRN PRN Reason: for CIWA 11-14 Lorazepam (Ativan Inj) 2 mg IV.PUSH Q1H PRN PRN Reason: for CIWA 15-20 Lorazepam (Ativan Inj) 2 mg IV.PUSH Q15M PRN PRN Reason: for CIWA > 20 Lorazepam (Ativan Inj) 1 mg IV.PUSH Q4H PRN PRN Reason: for CIWA 8-10 Lorazepam (Ativan Inj) 2 mg IV.PUSH Q2H PRN PRN Reason: for CIWA 11-14 Magnesium Oxide (Mag-Ox) 400 mg PO DAILY [facility] Last Admin: 02/15/18 09:12 Dose: 400 mg Mannitol (Mannitol Inj) 12.5 gm IV.PUSH PRN PRN PRN Reason: hypotension / volume replace Morphine Sulfate (Morphine Inj) 2 mg IV.PUSH Q2H PRN PRN Reason: BREAKTHROUGH PAIN Last Admin: 02/09/18 20:47 Dose: 2 mg Nitroglycerin (Nitrostat Sl) 0.4 mg SL Q5M PRN PRN Reason: CHEST PAIN Ondansetron HCl (Zofran Inj) 4 mg IV.PUSH Q6H PRN PRN Reason: NAUSEA OR VOMITING Last Admin: 02/15/18 22:26 Dose: 4 mg Ondansetron HCl (Zofran Odt) 4 mg PO UNSCH PRN PRN Reason: NAUSEA OR VOMITING Last Admin: 02/10/18 05:15 Dose: 4 mg Oxycodone/Acetaminophen (Percocet 5/325 Mg) 1 tab PO Q4H PRN PRN Reason: PAIN SCALE 1 TO 5 OR COUGHING Last Admin: 02/12/18 09:10 Dose: 1 tab Oxycodone/Acetaminophen (Percocet 5/325 Mg) 2 tab PO Q4H PRN PRN Reason: PAIN SCALE 6 TO 10 Last Admin: 02/16/18 06:28 Dose: 2 tab Potassium Bicarb/Potassium Chloride (K-Lyte Cl Eff) 50 meq PO UNSCH PRN PRN Reason: For Potassium 3.3 - 3.5 mEq/L Senna/Docusate Sodium (Sara-Colace) 1 tab PO BID [facility] Last Admin: 02/15/18 21:46 Dose: 1 tab Sennosides (Senokot) 17.2 mg PO Q12H PRN PRN Reason: Moderate Constipation Sodium Chloride (Ns Flush) 2 ml IV.FLUSH PRN PRN PRN Reason: FLUSH AFTER USING IV ACCESS Sodium Chloride (Ns Flush) 2 ml IV.FLUSH PRN PRN PRN Reason: FLUSH AFTER USING IV ACCESS Sodium Chloride (Ns Flush) 2 ml IV.FLUSH BID [facility] Last Admin: 02/15/18 21:47 Dose: 2 ml Sodium Chloride (Ns Flush) 5 ml IV.FLUSH PRN PRN PRN Reason: flush each lumen during HD <Joanne Harvey - Last Filed: 02/16/18 06:41> Allergies Allergy/AdvReac Type Severity Reaction Status Date / Time cephalexin Allergy Intermediate UNKNOWN Verified 02/07/18 17:01 latex Allergy Unknown UNKNONW Verified 02/07/18 17:01 Home Medications Medication Instructions Recorded Confirmed Type levonorgestrel [Mirena] 02/07/18 History propranolol 10 mg PO BID 02/07/18 02/10/18 History Exam Vital signs: Vital Signs 02/14/18 20:37 02/15/18 00:04 02/15/18 04:26 Temperature 98.2 F 98.0 F 98.3 F Pulse Rate 91 H 91 H 85 Respiratory Rate 18 18 18 Blood Pressure 114/72 123/83 113/74 Pulse Oximetry 96 97 96 02/15/18 08:00 02/15/18 10:09 02/15/18 16:00 Temperature 98.4 F 98.3 F Pulse Rate 102 H 83 Respiratory Rate 16 18 16 Blood Pressure 128/79 116/78 Pulse Oximetry 97 100 Intake & Output 02/14/18 02/15/18 02/15/18 18:59 06:59 18:59 Intake Total 1061 / 1061 720 / 720 Balance 1061 / 1061 720 / 720 Weight 67.6 kg Intake: IV 101 / 101 Thiamine Inj 100 MG In NS Inj 101 / 101 100 ML @ 100 mls/hr IV.SIG DAILY [facility] Rx#:[id number] Oral 960 / 960 720 / 720 Other: # Voids 8 Date of Last Bowel Movement 02/14/18 02/14/18 # Bowel Movements 1 1 - Constitutional mild distress - Routine HEENT Exam Head: Present: normocephalic, atraumatic Eye: Present: EOMI (Pale) ENT: Present: mucous membranes moist - Routine Neck Exam Present: supple - Routine Cardiovascular Exam Present: RRR - Routine Abdominal Exam Present: soft (Mid abdominal discomfort and some rectal discomfort with defecation) <Anne Eason - Last Filed: 02/15/18 17:48> Vital signs: Vital Signs 02/15/18 08:00 02/15/18 10:09 02/15/18 12:00 Temperature 98.4 F 98.3 F Pulse Rate 102 H 83 Respiratory Rate 16 18 16 Blood Pressure 128/79 116/78 Pulse Oximetry 97 100 02/15/18 16:00 02/15/18 18:50 02/15/18 19:53 Temperature 97.9 F Pulse Rate 99 H 106 H 86 Respiratory Rate 16 Blood Pressure 122/76 Pulse Oximetry 100 02/15/18 20:00 02/15/18 23:45 02/16/18 00:00 Temperature 98.2 F 98.0 F Pulse Rate 95 H 85 99 H Respiratory Rate 18 18 Blood Pressure 118/80 129/86 Pulse Oximetry 100 100 02/16/18 01:00 02/16/18 04:00 02/16/18 04:27 Temperature 98.6 F Pulse Rate 98 H 89 Respiratory Rate 17 18 Blood Pressure 120/66 Pulse Oximetry 98 Intake & Output 02/15/18 02/15/18 02/16/18 06:59 18:59 06:59 Intake Total 720 / 720 720 / 720 Balance 720 / 720 720 / 720 Weight 67.6 kg 67.5 kg Intake: Oral 720 / 720 720 / 720 Other: # Voids 8 4 7 Date of Last Bowel Movement 02/15/18 02/15/18 # Bowel Movements 1 1 1 <Joanne Harvey - Last Filed: 02/16/18 06:41> Results - Labs CBC & Chem 7: 02/10/18 03:24 02/15/18 08:45 Labs: Laboratory Results - last 24 hr 02/09/18 02/15/18 02/15/18 07:55 00:20 08:45 Sodium 139 Potassium 3.5 Chloride 106 Carbon Dioxide 22.5 Anion Gap 11 BUN 7 Creatinine 0.64 POC Glucose 103 Random Glucose 117 H Calcium 9.2 Magnesium Total Bilirubin 0.8 AST 166 H ALT 53 Alkaline Phosphatase 563 H Total Protein 7.9 Albumin 3.4 Lipase 2605 H Misc Test Result 02/15/18 02/15/18 02/15/18 09:17 13:06 13:39 Sodium Potassium Chloride Carbon Dioxide Anion Gap BUN Creatinine POC Glucose 158 H 111 H Random Glucose Calcium Magnesium 1.9 Total Bilirubin AST ALT Alkaline Phosphatase Total Protein Albumin Lipase Misc Test Result <Anne Eason - Last Filed: 02/15/18 17:48> - Labs CBC & Chem 7: 02/15/18 19:10 02/15/18 08:45 Labs: Laboratory Results - last 24 hr 02/09/18 02/15/18 02/15/18 07:55 08:45 09:17 WBC Corrected WBC RBC Hgb Hct MCV MCH MCHC RDW Plt Count MPV Neut % (Auto) Lymph % (Auto) Davidson % (Auto) Eos % (Auto) Baso % (Auto) Neut # (Auto) Lymph # (Auto) Davidson # (Auto) Eos # (Auto) Baso # (Auto) WBC Differential Differential Comment Hematology Comments Sodium 139 Potassium 3.5 Chloride 106 Carbon Dioxide 22.5 Anion Gap 11 BUN 7 Creatinine 0.64 POC Glucose 158 H Random Glucose 117 H Calcium 9.2 Magnesium Total Bilirubin 0.8 AST 166 H ALT 53 Alkaline Phosphatase 563 H Total Protein 7.9 Albumin 3.4 Lipase 2605 H Misc Test Result 02/15/18 02/15/18 02/15/18 13:06 13:39 17:45 WBC Corrected WBC RBC Hgb Hct MCV MCH MCHC RDW Plt Count MPV Neut % (Auto) Lymph % (Auto) Davidson % (Auto) Eos % (Auto) Baso % (Auto) Neut # (Auto) Lymph # (Auto) Davidson # (Auto) Eos # (Auto) Baso # (Auto) WBC Differential Differential Comment Hematology Comments Sodium Potassium Chloride Carbon Dioxide Anion Gap BUN Creatinine POC Glucose 111 H 137 H Random Glucose Calcium Magnesium 1.9 Total Bilirubin AST ALT Alkaline Phosphatase Total Protein Albumin Lipase Misc Test Result 02/15/18 02/15/18 02/15/18 19:10 19:10 21:44 WBC 8.6 Cancelled Corrected WBC Cancelled RBC 3.06 L Cancelled Hgb 10.5 L Cancelled Hct 31.2 L Cancelled MCV 102.1 H Cancelled MCH 34.2 H Cancelled MCHC 33.5 Cancelled RDW 15.9 Cancelled Plt Count 421 D Cancelled MPV 8.1 Cancelled Neut % (Auto) 44.3 Lymph % (Auto) 27.5 Davidson % (Auto) 24.5 H Eos % (Auto) 2.9 Baso % (Auto) 0.8 Neut # (Auto) 3.8 Lymph # (Auto) 2.4 Davidson # (Auto) 2.1 H Eos # (Auto) 0.2 Baso # (Auto) 0.1 WBC Differential . Differential Comment Auto diff final Hematology Comments Cancelled Sodium Potassium Chloride Carbon Dioxide Anion Gap BUN Creatinine POC Glucose 99 Random Glucose Calcium Magnesium Total Bilirubin AST ALT Alkaline Phosphatase Total Protein Albumin Lipase Misc Test Result <Joanne Harvey - Last Filed: 02/16/18 06:41> Assessment and Plan (1) Bright red rectal bleeding Status: Acute Code(s): K62.5 - Hemorrhage of anus and rectum (2) Acute pancreatitis Status: Acute Code(s): K85.90 - Acute pancreatitis without necrosis or infection, unspecified (3) Alcoholic ketoacidosis Status: Resolved Code(s): E87.2 - Acidosis - Plan Bright red rectal bleeding, probably secondary from constipation and straining and hemorrhoids. Last hemoglobin on 02 10 was 11.2. Will redraw today to compare. Patient notes 2 events during defecation and straining with bright red rectal bleeding when she wiped and in the toilet. She notes no rectal bleeding today. Encourage patient to wipe very gently when cleaning herself after defecation. Mid abdominal pain and rectal pain probably secondary to hemorrhoids and constipation. Acute pancreatitis patient was admitted on 02/07/2018 for pancreatitis probable secondary to alcohol. Does admit to 4 or more times a week alcohol consumption , denies any drug use. Transaminitis, could be related to inflammation , EtOH. No family history of colon cancer and no previous EGD or colonoscopy Plan Diet as tolerated Daily bowel regimen Hemorrhoid HC suppository twice a day Elevate legs as much as possible Avoid straining with defecation Monitor labs with special attention to hemoglobin Continue IV hydration Supportive care Will consider sigmoidoscopy for IRC if patient continues to have rectal bleeding or if significant hemoglobin changes Patient was seen per myself and Dr. Harvey, this note was written on his behalf <Anne Eason - Last Filed: 02/15/18 17:48> (1) Bright red rectal bleeding Status: Acute Code(s): K62.5 - Hemorrhage of anus and rectum (2) Acute pancreatitis Status: Acute Code(s): K85.90 - Acute pancreatitis without necrosis or infection, unspecified (3) Alcoholic ketoacidosis Status: Resolved Code(s): E87.2 - Acidosis - Attending Attestation Agree with above assessment and plan. Will plan colonoscopy for her during this admission. Further recommendations to follow. Thank you for the consult. <Joanne Harvey - Last Filed: 02/16/18 06:41> <Anne Eason - Last Filed: 02/15/18 17:48> (2) Acute pancreatitis Qualifiers: Pancreatitis type: unspecified pancreatitis type Acute pancreatitis complication: unspecified Qualified Code(s): K85.90 - Acute pancreatitis without necrosis or infection, unspecified <Joanne Harvey - Last Filed: 02/16/18 06:41> (2) Acute pancreatitis Qualifiers: Pancreatitis type: unspecified pancreatitis type Acute pancreatitis complication: unspecified Qualified Code(s): K85.90 - Acute pancreatitis without necrosis or infection, unspecified
[2018-02-15 19:54] LABS: Baso # (Auto) 0.1 th/mm3 (0.0-0.2); Baso % (Auto) 0.8 % (0.0-2.0); Eos # (Auto) 0.2 th/mm3 (0.0-0.4); Eos % (Auto) 2.9 % (0.0-4.0); Hematocrit 31.2 % (35.0-46.0); Hemoglobin 10.5 gm/dL (11.6-15.3); Lymph # (Auto) 2.4 th/mm3 (1.0-4.8); Lymph % (Auto) 27.5 % (9.0-44.0); Mean Corpuscular HGB Conc 33.5 % (32.0-36.0); Mean Corpuscular Hemoglobin 34.2 pg (27.0-34.0); Mean Corpuscular Volume 102.1 fL (80.0-100.0); Mean Platelet Volume 8.1 fL (7.0-11.0); Mono # (Auto) 2.1 th/mm3 (0.0-0.9); Mono % (Auto) 24.5 % (0.0-8.0); Neut # (Auto) 3.8 th/mm3 (1.8-7.7); Neut % (Auto) 44.3 % (16.0-70.0); Platelet Count 421 th/mm3 (150-450); Red Blood Count 3.06 mil/mm3 (4.00-5.30); Red Cell Distribution Width 15.9 % (11.6-17.2); White Blood Count 8.6 th/mm3 (4.0-11.0)
[2018-02-15] MEDS: Hydrocortisone Acetate 25 MG Supp RECTAL SCH (21:47)
[2018-02-16] MEDS: Enoxaparin Inj 40 MG/0.4 ML Syringe SQ SCH (06:28)
[2018-02-16] MEDS: Magnesium Oxide 400 MG Tablet PO SCH (08:27)
[2018-02-16] MEDS: Folic Acid 1 MG Tablet PO SCH (08:27)
[2018-02-16 08:28] LABS: Baso # (Auto) 0.1 th/mm3 (0.0-0.2); Baso % (Auto) 0.9 % (0.0-2.0); Eos # (Auto) 0.2 th/mm3 (0.0-0.4); Eos % (Auto) 2.2 % (0.0-4.0); Hematocrit 35.3 % (35.0-46.0); Hemoglobin 11.8 gm/dL (11.6-15.3); Lymph # (Auto) 2.8 th/mm3 (1.0-4.8); Lymph % (Auto) 30.1 % (9.0-44.0); Mean Corpuscular HGB Conc 33.3 % (32.0-36.0); Mean Corpuscular Hemoglobin 34.3 pg (27.0-34.0); Mean Corpuscular Volume 103.1 fL (80.0-100.0); Mean Platelet Volume 8.2 fL (7.0-11.0); Mono # (Auto) 2.2 th/mm3 (0.0-0.9); Mono % (Auto) 23.5 % (0.0-8.0); Neut # (Auto) 4.1 th/mm3 (1.8-7.7); Neut % (Auto) 43.3 % (16.0-70.0); Platelet Count 530 th/mm3 (150-450); Red Blood Count 3.42 mil/mm3 (4.00-5.30); Red Cell Distribution Width 15.6 % (11.6-17.2); White Blood Count 9.4 th/mm3 (4.0-11.0)
[2018-02-16] MEDS: Senna/Docusate Sodium 8.6/50 MG Tablet PO SCH ×2 (08:28→22:03)
[2018-02-16] MEDS: Famotidine 20 MG Tablet PO SCH ×2 (08:28→22:02)
[2018-02-16] MEDS: Hydrocortisone Acetate 25 MG Supp RECTAL SCH ×2 (08:29→22:02)
[2018-02-16] MEDS: Thiamine Inj 100 MG in Sodium Chlor 0.9% Inj 100 ML IV.SIG SCH (08:34)
[2018-02-16 08:46] LABS: Blood Urea Nitrogen 7 mg/dL (7-18); Calcium 9.5 mg/dL (8.5-10.1); Carbon Dioxide 22.6 meq/L (21.0-32.0); Glomerular Filtration Rate Greater Than 89 mL/min (>89); Glucose,Random 71 mg/dL (74-106); Lipase 2951 U/L (73-393)
[2018-02-16] MEDS: Insulin NovoLOG Aspart Correctional Sugar Inj SQ SCH ×4 (09:00→22:07)
[2018-02-16 09:21] LABS: Platelet Morphology Normal (Normal)
[2018-02-16 09:32] LABS: Anion Gap 8 meq/L (5-15); Chloride 106 meq/L (98-107); Sodium 137 meq/L (136-145)
[2018-02-16 09:37] LABS: Potassium 4.9 meq/L (3.5-5.1)
--- NOTE | 2018-02-16 16:55 | P.PN ---
Physical Exam Vital signs: Vital Signs 02/15/18 18:12 02/15/18 18:50 02/15/18 19:53 Temperature Pulse Rate 106 H 86 Respiratory Rate 17 Blood Pressure Pulse Oximetry 02/15/18 20:00 02/15/18 23:45 02/16/18 00:00 Temperature 98.2 F 98.0 F Pulse Rate 95 H 85 99 H Respiratory Rate 18 18 Blood Pressure 118/80 129/86 Pulse Oximetry 100 100 02/16/18 01:00 02/16/18 04:00 02/16/18 04:27 Temperature 98.6 F Pulse Rate 98 H 89 Respiratory Rate 17 18 Blood Pressure 120/66 Pulse Oximetry 98 02/16/18 07:29 02/16/18 08:00 02/16/18 10:17 Temperature 97.6 F Pulse Rate 95 H 104 H Respiratory Rate 18 18 Blood Pressure 123/63 Pulse Oximetry 99 02/16/18 11:13 02/16/18 12:00 02/16/18 15:17 Temperature 98.3 F Pulse Rate 96 H Respiratory Rate 19 18 19 Blood Pressure 115/71 Pulse Oximetry 99 Intake & Output 02/15/18 02/16/18 02/16/18 18:59 06:59 18:59 Intake Total 821 / 821 101 / 101 Balance 821 / 821 101 / 101 Weight 67.5 kg Intake: IV 101 / 101 101 / 101 Thiamine Inj 100 MG In NS Inj 101 / 101 101 / 101 100 ML @ 100 mls/hr IV.SIG DAILY RUTH Rx#:[id number] Oral 720 / 720 Other: # Voids 4 7 Date of Last Bowel Movement 02/15/18 02/15/18 02/14/18 # Bowel Movements 1 1 Narrative: Subjective: Follow-up acute metabolic encephalopathy alcohol dependence, pancreatitis anion gap metabolic acidosis: Some abdominal pain. Lipase is still elevated and still with abd pain. Some nausea but no vomiting. Had bloody bowel movement last night. Physical examination: GENERAL: Pleasant young female appears not acute distress. CARDIOVASCULAR: Regular, tachycardic, sinus tach on monitor 101. No murmurs rubs or gallops. RESPIRATORY: No accessory muscle use. Clear to auscultation. Breath sounds equal bilaterally. On RA. GASTROINTESTINAL: Bowel sounds present. Abdomen soft, mild epigastric tenderness. MUSCULOSKELETAL: Extremities without clubbing, cyanosis, or edema. No obvious deformities. NEUROLOGICAL: Awake alert and oriented. Moves all extremities spontaneously. No focal deficit. Assessment and Plan NEURO: EtOH dependence with withdrawals, withdrawals resolved. Acute metabolic encephalopathy, resolved CT brain egative Thiamine/folate acid/multivitamin supplementation. Previously received increased doses of folic acid/pyridoxine per poison control recommendations, now backed off doses. Monitor for signs of alcohol withdrawal, CIWA protocol. Pt states last alcoholic beverage was 02/06. Drinks 2-6 drinks/day Depression Pt was started on citalopram 02/03. States she doesn't want to take it anymore, says she had a seizure 02/04 and attributes it to the med. RESP: On room air CV: Home medication propranolol is for essential tremor, she takes on prn basis and doesn't want to take as of now. GI: Acute pancreatitis Transaminitis Hepatic steatosis Rectal bleeding per patient. Monitor H/H consult GI . H&H is stable. Likely secondary to alcohol abuse. Triglyceride level mildly elevated, not the cause of her pancreatitis. . Her only medications were propranolol, single dose of Cipro on 02/03 for ?UTI and single does escitalopram. No evidence of biliary obstruction on CT. abdominal ultrasound 02/09 fatty infiltration of liver. Advance to full liquid diet. Check lipase, trending down however not back to baseline monitor lipase. Lipase daily and is noted worsening. Patient still with pain. Will start IV fluids. FEN/RENAL: Very high anion gap metabolic acidosis, anion gap 39 upon presentation. ( resolved) Osmolar gap, 24 (resolved) Alcoholic ketoacidosis (resolved) Hypophosphatemia Hypokalemia Very high anion gap is may have multifactorial secondary to AKA with lactic acidemia and elevated beta hydroxybutyrate. However unable to rule out ethylene glycol toxicity and patient was a poor historian with severe symptoms. Discussed with poison control who recommended initiation of Fomepizole and hemodialysis. I discussed with Dr. Diggs. Right IJ Vas-Cath placed and she underwent HD on 02/08. Osmolar and anion gap now closed. Stop fomepizole. Remove Vascath today if ok with Dr. Diggs. Replace electrolytes per electrolyte replacement protocol. Patient indicated a history of latex allergy and some electrolyte formulations do contain latex. Discussed with pharmacy and they stated that ICU electrolyte protocol should be ordered as usual and that they would make appropriate adjustments. Diarrhea improved continue DC IVF tolerated diet Monitor electrolytes ID: Leukocytosis, likely reactive. (resolved) Monitor for signs and symptoms of infection. Follow-up blood cultures U/a negative for infection. HEME: Monitor CBC ENDO: Acute hyperglycemia Monitor bedside glucose every 6 hours and initiate low-dose insulin sliding scale as indicated. PROPH: SCDs/low for DVT prophylaxis. Pepcid for stress ulcer prophylaxis. Out of bed. Discussed with the patient, nurse Discharge when the pain is improved, lipase back to almost normal. Monitor lipase level. Lipase is still elevated and still with abd pain , not eating much. Results - Labs CBC & Chem 7: 02/16/18 07:04 02/16/18 07:04 Laboratory Results - last 24 hr 02/15/18 02/15/18 02/15/18 17:45 19:10 19:10 WBC 8.6 Cancelled Corrected WBC Cancelled RBC 3.06 L Cancelled Hgb 10.5 L Cancelled Hct 31.2 L Cancelled MCV 102.1 H Cancelled MCH 34.2 H Cancelled MCHC 33.5 Cancelled RDW 15.9 Cancelled Plt Count 421 D Cancelled MPV 8.1 Cancelled Prelim Diff (Auto) Neut % (Auto) 44.3 Lymph % (Auto) 27.5 [place] % (Auto) 24.5 H Eos % (Auto) 2.9 Baso % (Auto) 0.8 Neut # (Auto) 3.8 Lymph # (Auto) 2.4 [place] # (Auto) 2.1 H Eos # (Auto) 0.2 Baso # (Auto) 0.1 WBC Differential . Diff Scan Differential Comment Auto diff final Platelet Estimate Platelet Morphology Hematology Comments Cancelled Sodium Potassium Chloride Carbon Dioxide Anion Gap BUN Creatinine Estimated GFR POC Glucose 137 H Random Glucose Calcium Lipase 02/15/18 02/16/18 02/16/18 21:44 07:04 07:04 WBC 9.4 Corrected WBC RBC 3.42 L Hgb 11.8 Hct 35.3 MCV 103.1 H MCH 34.3 H MCHC 33.3 RDW 15.6 Plt Count 530 H MPV 8.2 Prelim Diff (Auto) Slide review pending Neut % (Auto) 43.3 Lymph % (Auto) 30.1 [place] % (Auto) 23.5 H Eos % (Auto) 2.2 Baso % (Auto) 0.9 Neut # (Auto) 4.1 Lymph # (Auto) 2.8 [place] # (Auto) 2.2 H Eos # (Auto) 0.2 Baso # (Auto) 0.1 WBC Differential . Diff Scan Auto diff confirmed Differential Comment . Platelet Estimate High H Platelet Morphology Normal Hematology Comments Sodium 137 Potassium 4.9 D Chloride 106 Carbon Dioxide 22.6 Anion Gap 8 BUN 7 Creatinine 0.71 Estimated GFR Greater than 89 POC Glucose 99 Random Glucose 71 L Calcium 9.5 Lipase 2951 H 02/16/18 02/16/18 08:44 12:38 WBC Corrected WBC RBC Hgb Hct MCV MCH MCHC RDW Plt Count MPV Prelim Diff (Auto) Neut % (Auto) Lymph % (Auto) [place] % (Auto) Eos % (Auto) Baso % (Auto) Neut # (Auto) Lymph # (Auto) [place] # (Auto) Eos # (Auto) Baso # (Auto) WBC Differential Diff Scan Differential Comment Platelet Estimate Platelet Morphology Hematology Comments Sodium Potassium Chloride Carbon Dioxide Anion Gap BUN Creatinine Estimated GFR POC Glucose 86 111 H Random Glucose Calcium Lipase
--- NOTE | 2018-02-16 18:13 | P.PNGI ---
Subjective Interval history: Patient is sitting up in the bed more alert today. States no bright red rectal bleeding unless she is having bowel movement No acute rectal pain today and no abdominal pain <Anne Eason - Last Filed: 02/16/18 18:13> Physical Exam Vital signs: Vital Signs 02/15/18 18:12 02/15/18 18:50 02/15/18 19:53 Temperature Pulse Rate 106 H 86 Respiratory Rate 17 Blood Pressure Pulse Oximetry 02/15/18 20:00 02/15/18 23:45 02/16/18 00:00 Temperature 98.2 F 98.0 F Pulse Rate 95 H 85 99 H Respiratory Rate 18 18 Blood Pressure 118/80 129/86 Pulse Oximetry 100 100 02/16/18 01:00 02/16/18 04:00 02/16/18 04:27 Temperature 98.6 F Pulse Rate 98 H 89 Respiratory Rate 17 18 Blood Pressure 120/66 Pulse Oximetry 98 02/16/18 07:29 02/16/18 08:00 02/16/18 10:17 Temperature 97.6 F Pulse Rate 95 H 104 H Respiratory Rate 18 18 Blood Pressure 123/63 Pulse Oximetry 99 02/16/18 11:13 02/16/18 12:00 02/16/18 15:17 Temperature 98.3 F Pulse Rate 96 H Respiratory Rate 19 18 19 Blood Pressure 115/71 Pulse Oximetry 99 Intake & Output 02/15/18 02/16/18 02/16/18 18:59 06:59 18:59 Intake Total 821 / 821 101 / 101 Balance 821 / 821 101 / 101 Weight 67.5 kg Intake: IV 101 / 101 101 / 101 Thiamine Inj 100 MG In NS Inj 101 / 101 101 / 101 100 ML @ 100 mls/hr IV.SIG DAILY RUTH Rx#:[id number] Oral 720 / 720 Other: # Voids 4 7 Date of Last Bowel Movement 02/15/18 02/15/18 02/14/18 # Bowel Movements 1 1 - Constitutional no acute distress - Routine HEENT Exam Head: Present: normocephalic, atraumatic ENT: Present: mucous membranes moist - Routine Neck Exam Present: supple - Routine Respiratory Exam Present: CTA bilaterally - Routine Cardiovascular Exam Present: RRR - Routine Abdominal Exam Present: soft, normoactive bowel sounds - Routine Skin Exam Present: intact - Routine Neurological Exam Present: alert (Answer simple questions appropriately) - Detailed Neurological Exam: Coma Scale Eye Opening: Spontaneous Verbal Response: Oriented <Anne Eason - Last Filed: 02/16/18 18:13> Vital signs: Vital Signs 02/15/18 23:45 02/16/18 00:00 02/16/18 01:00 Temperature 98.0 F Pulse Rate 85 99 H Respiratory Rate 18 17 Blood Pressure 129/86 Pulse Oximetry 100 02/16/18 04:00 02/16/18 04:27 02/16/18 07:29 Temperature 98.6 F Pulse Rate 98 H 89 Respiratory Rate 18 18 Blood Pressure 120/66 Pulse Oximetry 98 02/16/18 08:00 02/16/18 10:17 02/16/18 11:13 Temperature 97.6 F Pulse Rate 95 H 104 H Respiratory Rate 18 19 Blood Pressure 123/63 Pulse Oximetry 99 02/16/18 12:00 02/16/18 15:17 02/16/18 16:00 Temperature 98.3 F 98.3 F Pulse Rate 96 H 84 Respiratory Rate 18 19 18 Blood Pressure 115/71 123/64 Pulse Oximetry 99 99 Intake & Output 02/16/18 02/16/18 02/17/18 06:59 18:59 06:59 Intake Total 101 / 101 Balance 101 / 101 Weight 67.5 kg Intake: IV 101 / 101 Thiamine Inj 100 MG In NS Inj 101 / 101 100 ML @ 100 mls/hr IV.SIG DAILY RUTH Rx#:[id number] Other: # Voids 7 Date of Last Bowel Movement 02/15/18 02/14/18 # Bowel Movements 1 <Joanne Harvey - Last Filed: 02/16/18 21:28> Results - Labs CBC & Chem 7: 02/16/18 07:04 02/16/18 07:04 Laboratory Results - last 24 hr 02/15/18 02/15/18 02/15/18 19:10 19:10 21:44 WBC 8.6 Cancelled Corrected WBC Cancelled RBC 3.06 L Cancelled Hgb 10.5 L Cancelled Hct 31.2 L Cancelled MCV 102.1 H Cancelled MCH 34.2 H Cancelled MCHC 33.5 Cancelled RDW 15.9 Cancelled Plt Count 421 D Cancelled MPV 8.1 Cancelled Prelim Diff (Auto) Neut % (Auto) 44.3 Lymph % (Auto) 27.5 [place] % (Auto) 24.5 H Eos % (Auto) 2.9 Baso % (Auto) 0.8 Neut # (Auto) 3.8 Lymph # (Auto) 2.4 [place] # (Auto) 2.1 H Eos # (Auto) 0.2 Baso # (Auto) 0.1 WBC Differential . Diff Scan Differential Comment Auto diff final Platelet Estimate Platelet Morphology Hematology Comments Cancelled Sodium Potassium Chloride Carbon Dioxide Anion Gap BUN Creatinine Estimated GFR POC Glucose 99 Random Glucose Calcium Lipase 02/16/18 02/16/18 02/16/18 07:04 07:04 08:44 WBC 9.4 Corrected WBC RBC 3.42 L Hgb 11.8 Hct 35.3 MCV 103.1 H MCH 34.3 H MCHC 33.3 RDW 15.6 Plt Count 530 H MPV 8.2 Prelim Diff (Auto) Slide review pending Neut % (Auto) 43.3 Lymph % (Auto) 30.1 [place] % (Auto) 23.5 H Eos % (Auto) 2.2 Baso % (Auto) 0.9 Neut # (Auto) 4.1 Lymph # (Auto) 2.8 [place] # (Auto) 2.2 H Eos # (Auto) 0.2 Baso # (Auto) 0.1 WBC Differential . Diff Scan Auto diff confirmed Differential Comment . Platelet Estimate High H Platelet Morphology Normal Hematology Comments Sodium 137 Potassium 4.9 D Chloride 106 Carbon Dioxide 22.6 Anion Gap 8 BUN 7 Creatinine 0.71 Estimated GFR Greater than 89 POC Glucose 86 Random Glucose 71 L Calcium 9.5 Lipase 2951 H 02/16/18 02/16/18 12:38 16:53 WBC Corrected WBC RBC Hgb Hct MCV MCH MCHC RDW Plt Count MPV Prelim Diff (Auto) Neut % (Auto) Lymph % (Auto) [place] % (Auto) Eos % (Auto) Baso % (Auto) Neut # (Auto) Lymph # (Auto) [place] # (Auto) Eos # (Auto) Baso # (Auto) WBC Differential Diff Scan Differential Comment Platelet Estimate Platelet Morphology Hematology Comments Sodium Potassium Chloride Carbon Dioxide Anion Gap BUN Creatinine Estimated GFR POC Glucose 111 H 102 Random Glucose Calcium Lipase <Anne Eason - Last Filed: 07/11/18 18:13> - Labs CBC & Chem 7: 02/16/18 07:04 02/16/18 07:04 Laboratory Results - last 24 hr 02/15/18 02/16/18 02/16/18 21:44 07:04 07:04 WBC 9.4 RBC 3.42 L Hgb 11.8 Hct 35.3 MCV 103.1 H MCH 34.3 H MCHC 33.3 RDW 15.6 Plt Count 530 H MPV 8.2 Prelim Diff (Auto) Slide review pending Neut % (Auto) 43.3 Lymph % (Auto) 30.1 [place] % (Auto) 23.5 H Eos % (Auto) 2.2 Baso % (Auto) 0.9 Neut # (Auto) 4.1 Lymph # (Auto) 2.8 [place] # (Auto) 2.2 H Eos # (Auto) 0.2 Baso # (Auto) 0.1 WBC Differential . Diff Scan Auto diff confirmed Differential Comment . Platelet Estimate High H Platelet Morphology Normal Sodium 137 Potassium 4.9 D Chloride 106 Carbon Dioxide 22.6 Anion Gap 8 BUN 7 Creatinine 0.71 Estimated GFR Greater than 89 POC Glucose 99 Random Glucose 71 L Calcium 9.5 Lipase 2951 H 02/16/18 02/16/18 02/16/18 08:44 12:38 16:53 WBC RBC Hgb Hct MCV MCH MCHC RDW Plt Count MPV Prelim Diff (Auto) Neut % (Auto) Lymph % (Auto) [place] % (Auto) Eos % (Auto) Baso % (Auto) Neut # (Auto) Lymph # (Auto) [place] # (Auto) Eos # (Auto) Baso # (Auto) WBC Differential Diff Scan Differential Comment Platelet Estimate Platelet Morphology Sodium Potassium Chloride Carbon Dioxide Anion Gap BUN Creatinine Estimated GFR POC Glucose 86 111 H 102 Random Glucose Calcium Lipase <Joanne Harvey - Last Filed: 02/16/18 21:28> Assessment and Plan (1) Bright red rectal bleeding Status: Acute Code(s): K62.5 - Hemorrhage of anus and rectum (2) Acute pancreatitis Status: Acute Code(s): K85.90 - Acute pancreatitis without necrosis or infection, unspecified (3) Alcoholic ketoacidosis Status: Resolved Code(s): E87.2 - Acidosis - Plan Bright red rectal bleeding, probably secondary from constipation and straining and hemorrhoids. Last hemoglobin on 02 10 was 11.2. Will redraw today to compare. Patient notes 2 events during defecation and straining with bright red rectal bleeding when she wiped and in the toilet. She notes no rectal bleeding today. Encourage patient to wipe very gently when cleaning herself after defecation. Mid abdominal pain and rectal pain probably secondary to hemorrhoids and constipation. Acute pancreatitis patient was admitted on 02/07/2018 for pancreatitis probable secondary to alcohol. Does admit to 4 or more times a week alcohol consumption , denies any drug use. Transaminitis, could be related to inflammation , EtOH. No family history of colon cancer and no previous EGD or colonoscopy 02/16/2018 patient states she still having some bright red blood when wiping after defecation. Encourage patient not to strain. Discussed colonoscopy during this admission tentatively looking at Wednesday but will need reevaluation in a.m. supportive care given. Explained the process of prep. Hemoglobin stable at 11.8. Plan Diet as tolerated Daily bowel regimen Hemorrhoid HC suppository twice a day Encourage patient to move around and be up in chair, elevate legs Avoid straining with defecation Monitor labs Supportive care Colonoscopy with IRC, TBA Patient was seen per myself and Dr. Harvey, this note was written on his behalf <Anne Eason - Last Filed: 02/16/18 18:13> (1) Bright red rectal bleeding Status: Acute Code(s): K62.5 - Hemorrhage of anus and rectum (2) Acute pancreatitis Status: Acute Code(s): K85.90 - Acute pancreatitis without necrosis or infection, unspecified (3) Alcoholic ketoacidosis Status: Resolved Code(s): E87.2 - Acidosis - Attending Attestation As above, still symptomatic from Pancreatitis. will plan colonoscopy for wednesday or early next week. <Joanne Harvey - Last Filed: 02/16/18 21:28> <Anne Eason - Last Filed: 02/16/18 18:13> (2) Acute pancreatitis Qualifiers: Pancreatitis type: unspecified pancreatitis type Acute pancreatitis complication: unspecified Qualified Code(s): K85.90 - Acute pancreatitis without necrosis or infection, unspecified <Joanne Harvey - Last Filed: 02/16/18 21:28> (2) Acute pancreatitis Qualifiers: Pancreatitis type: unspecified pancreatitis type Acute pancreatitis complication: unspecified Qualified Code(s): K85.90 - Acute pancreatitis without necrosis or infection, unspecified
[2018-02-16] MEDS: Sod Chloride 0.9% Inj 1,000 ML IV.CONT SCH (19:05)
[2018-02-17] MEDS: Sod Chloride 0.9% Inj 1,000 ML IV.CONT SCH ×4 (02:40→18:39)
[2018-02-17] MEDS: Enoxaparin Inj 40 MG/0.4 ML Syringe SQ SCH (06:20)
[2018-02-17 06:45] LABS: Baso % (Auto) 0.6 % (0.0-2.0); Eos # (Auto) 0.1 th/mm3 (0.0-0.4); Eos % (Auto) 1.6 % (0.0-4.0); Hemoglobin 9.9 gm/dL (11.6-15.3); Lymph # (Auto) 2.1 th/mm3 (1.0-4.8); Lymph % (Auto) 27.6 % (9.0-44.0); Mean Corpuscular HGB Conc 32.9 % (32.0-36.0); Mean Corpuscular Hemoglobin 33.9 pg (27.0-34.0); Mean Corpuscular Volume 103.1 fL (80.0-100.0); Mean Platelet Volume 7.7 fL (7.0-11.0); Mono # (Auto) 1.6 th/mm3 (0.0-0.9); Mono % (Auto) 21.2 % (0.0-8.0); Neut # (Auto) 3.8 th/mm3 (1.8-7.7); Platelet Count 460 th/mm3 (150-450); Red Blood Count 2.91 mil/mm3 (4.00-5.30); Red Cell Distribution Width 15.6 % (11.6-17.2); White Blood Count 7.7 th/mm3 (4.0-11.0)
[2018-02-17 07:07] LABS: Anion Gap 12 meq/L (5-15); Blood Urea Nitrogen 6 mg/dL (7-18); Calcium 8.5 mg/dL (8.5-10.1); Chloride 107 meq/L (98-107); Glomerular Filtration Rate Greater Than 89 mL/min (>89); Glucose,Random 87 mg/dL (74-106); Sodium 141 meq/L (136-145)
[2018-02-17 07:18] LABS: Lipase 2749 U/L (73-393)
[2018-02-17] MEDS: Potassium Chloride Inj 30 MEQ in Dextrose 5%/NaCl 0.45% Inj 1,000 ML IV.SIG SCH ×5 (07:25→13:25)
[2018-02-17] MEDS: Insulin NovoLOG Aspart Correctional Sugar Inj SQ SCH ×5 (07:27→21:00)
[2018-02-17] MEDS: Famotidine 20 MG Tablet PO SCH ×2 (08:20→21:28)
[2018-02-17] MEDS: Magnesium Oxide 400 MG Tablet PO SCH (08:20)
[2018-02-17] MEDS: Folic Acid 1 MG Tablet PO SCH (08:20)
[2018-02-17] MEDS: Thiamine Inj 100 MG in Sodium Chlor 0.9% Inj 100 ML IV.SIG SCH (08:20)
[2018-02-17] MEDS: Senna/Docusate Sodium 8.6/50 MG Tablet PO SCH ×2 (08:20→21:28)
[2018-02-17] MEDS: Hydrocortisone Acetate 25 MG Supp RECTAL SCH ×2 (08:26→21:31)
--- NOTE | 2018-02-17 09:06 | P.PN ---
Physical Exam Vital signs: Vital Signs 02/16/18 10:17 02/16/18 11:13 02/16/18 12:00 Temperature 98.3 F Pulse Rate 104 H 96 H Respiratory Rate 19 18 Blood Pressure 115/71 Pulse Oximetry 99 02/16/18 15:17 02/16/18 16:00 02/16/18 20:00 Temperature 98.3 F 98.6 F Pulse Rate 84 75 Respiratory Rate 19 18 18 Blood Pressure 123/64 120/72 Pulse Oximetry 99 99 02/16/18 23:30 02/17/18 00:00 02/17/18 04:00 Temperature 98.4 F 98.6 F Pulse Rate 87 93 H 95 H Respiratory Rate 17 18 Blood Pressure 108/68 107/67 Pulse Oximetry 99 99 02/17/18 05:00 02/17/18 08:00 Temperature 97.3 F L Pulse Rate 81 92 H Respiratory Rate 18 Blood Pressure 124/79 Pulse Oximetry 96 Intake & Output 02/16/18 02/17/18 02/17/18 18:59 06:59 18:59 Intake Total 101 / 101 1000 / 1000 Balance 101 / 101 1000 / 1000 Weight 67.5 kg Intake: IV 101 / 101 1000 / 1000 NS Inj 1,000 ML @ 125 mls/hr IV 1000 / 1000 .CONT .Q8H RUTH Rx#:[id number] Thiamine Inj 100 MG In NS Inj 101 / 101 100 ML @ 100 mls/hr IV.SIG DAILY RUTH Rx#:[id number] Other: # Voids 6 Date of Last Bowel Movement 02/14/18 02/16/18 # Bowel Movements 1 Narrative: Subjective: Follow-up acute metabolic encephalopathy alcohol dependence, pancreatitis anion gap metabolic acidosis: Still with abdominal pain. No more nausea no vomiting. Says she has increased appetite now. Lipase is still elevated however is trending down now with restarting IV fluids. Encourage p.o. hydration as well. Physical examination: GENERAL: Pleasant young female appears not acute distress. CARDIOVASCULAR: Regular, tachycardic, sinus tach on monitor 101. No murmurs rubs or gallops. RESPIRATORY: No accessory muscle use. Clear to auscultation. Breath sounds equal bilaterally. On RA. GASTROINTESTINAL: Bowel sounds present. Abdomen soft, mild epigastric tenderness. MUSCULOSKELETAL: Extremities without clubbing, cyanosis, or edema. No obvious deformities. NEUROLOGICAL: Awake alert and oriented. Moves all extremities spontaneously. No focal deficit. Assessment and Plan NEURO: EtOH dependence with withdrawals, withdrawals resolved. Acute metabolic encephalopathy, resolved CT brain egative Thiamine/folate acid/multivitamin supplementation. Previously received increased doses of folic acid/pyridoxine per poison control recommendations, now backed off doses. Monitor for signs of alcohol withdrawal, CIWA protocol. Pt states last alcoholic beverage was 02/06. Drinks 2-6 drinks/day Depression Pt was started on citalopram 02/03. States she doesn't want to take it anymore, says she had a seizure 02/04 and attributes it to the med. RESP: On room air CV: Home medication propranolol is for essential tremor, she takes on prn basis and doesn't want to take as of now. GI: Acute pancreatitis Transaminitis Hepatic steatosis Rectal bleeding per patient. Monitor H/H consult GI . H&H is stable. Likely secondary to alcohol abuse. Triglyceride level mildly elevated, not the cause of her pancreatitis. . Her only medications were propranolol, single dose of Cipro on 02/03 for ?UTI and single does escitalopram. No evidence of biliary obstruction on CT. abdominal ultrasound 02/09 fatty infiltration of liver. Advance to full liquid diet. Check lipase, trending down however not back to baseline monitor lipase. Lipase daily and is noted worsening. Patient still with pain. Will start IV fluids. FEN/RENAL: Very high anion gap metabolic acidosis, anion gap 39 upon presentation. ( resolved) Osmolar gap, 24 (resolved) Alcoholic ketoacidosis (resolved) Hypophosphatemia Hypokalemia Very high anion gap is may have multifactorial secondary to AKA with lactic acidemia and elevated beta hydroxybutyrate. However unable to rule out ethylene glycol toxicity and patient was a poor historian with severe symptoms. Discussed with poison control who recommended initiation of Fomepizole and hemodialysis. I discussed with Dr. Diggs. Right IJ Vas-Cath placed and she underwent HD on 02/08. Osmolar and anion gap now closed. Stop fomepizole. Remove Vascath today if ok with Dr. Diggs. Replace electrolytes per electrolyte replacement protocol. Patient indicated a history of latex allergy and some electrolyte formulations do contain latex. Discussed with pharmacy and they stated that ICU electrolyte protocol should be ordered as usual and that they would make appropriate adjustments. Diarrhea improved continue DC IVF tolerated diet Monitor electrolytes ID: Leukocytosis, likely reactive. (resolved) Monitor for signs and symptoms of infection. Follow-up blood cultures U/a negative for infection. HEME: Monitor CBC ENDO: Acute hyperglycemia Monitor bedside glucose every 6 hours and initiate low-dose insulin sliding scale as indicated. PROPH: SCDs/low for DVT prophylaxis. Pepcid for stress ulcer prophylaxis. Out of bed. Discussed with the patient, nurse Discharge when the pain is improved, lipase back to almost normal. Monitor lipase level. Lipase is still elevated and still with abd pain. Restarted IV fluids monitor lipase level Results - Labs CBC & Chem 7: 02/17/18 04:59 02/17/18 04:59 Laboratory Results - last 24 hr 02/16/18 02/16/18 02/16/18 07:04 07:04 12:38 WBC RBC Hgb Hct MCV MCH MCHC RDW Plt Count MPV Neut % (Auto) Lymph % (Auto) [place] % (Auto) Eos % (Auto) Baso % (Auto) Neut # (Auto) Lymph # (Auto) [place] # (Auto) Eos # (Auto) Baso # (Auto) WBC Differential . Diff Scan Auto diff confirmed Differential Comment Platelet Estimate High H Platelet Morphology Normal Sodium 137 Potassium 4.9 D Chloride 106 Carbon Dioxide Anion Gap 8 BUN Creatinine Estimated GFR POC Glucose 111 H Random Glucose Calcium Lipase 02/16/18 02/16/18 02/17/18 16:53 22:06 04:59 WBC RBC Hgb Hct MCV MCH MCHC RDW Plt Count MPV Neut % (Auto) Lymph % (Auto) [place] % (Auto) Eos % (Auto) Baso % (Auto) Neut # (Auto) Lymph # (Auto) [place] # (Auto) Eos # (Auto) Baso # (Auto) WBC Differential Diff Scan Differential Comment Platelet Estimate Platelet Morphology Sodium 141 Potassium 3.0 L D Chloride 107 Carbon Dioxide 22.0 Anion Gap 12 BUN 6 L Creatinine 0.47 L Estimated GFR Greater than 89 POC Glucose 102 107 Random Glucose 87 Calcium 8.5 D Lipase 2749 H 02/17/18 02/17/18 04:59 08:18 WBC 7.7 RBC 2.91 L Hgb 9.9 L Hct 30.0 L MCV 103.1 H MCH 33.9 MCHC 32.9 RDW 15.6 Plt Count 460 H MPV 7.7 Neut % (Auto) 49.0 Lymph % (Auto) 27.6 [place] % (Auto) 21.2 H Eos % (Auto) 1.6 Baso % (Auto) 0.6 Neut # (Auto) 3.8 Lymph # (Auto) 2.1 [place] # (Auto) 1.6 H Eos # (Auto) 0.1 Baso # (Auto) 0.0 WBC Differential . Diff Scan Differential Comment Auto diff final Platelet Estimate Platelet Morphology Sodium Potassium Chloride Carbon Dioxide Anion Gap BUN Creatinine Estimated GFR POC Glucose 97 Random Glucose Calcium Lipase
--- NOTE | 2018-02-17 12:58 | P.PNGI ---
Subjective Interval history: Pt resting in bed. Denies nausea and vomiting. Reports she has been eating and drinking without issues. Continued abdominal pain, mostly in upper abdomen. Still having some blood with bowel movements, she is unsure whether it is just on the toilet paper when she wipes or if it is mixed in the stool as well. <Dhara Roman - Last Filed: 02/17/18 12:49> Physical Exam Vital signs: Vital Signs 02/16/18 15:17 02/16/18 16:00 02/16/18 20:00 Temperature 98.3 F 98.6 F Pulse Rate 84 75 Respiratory Rate 19 18 18 Blood Pressure 123/64 120/72 Pulse Oximetry 99 99 02/16/18 23:30 02/17/18 00:00 02/17/18 04:00 Temperature 98.4 F 98.6 F Pulse Rate 87 93 H 95 H Respiratory Rate 17 18 Blood Pressure 108/68 107/67 Pulse Oximetry 99 99 02/17/18 05:00 02/17/18 08:00 02/17/18 12:07 Temperature 97.3 F L 97.8 F Pulse Rate 81 92 H 90 Respiratory Rate 18 18 Blood Pressure 124/79 119/65 Pulse Oximetry 96 98 Intake & Output 02/16/18 02/17/18 02/17/18 18:59 06:59 18:59 Intake Total 101 / 101 1000 / 1000 Balance 101 / 101 1000 / 1000 Weight 67.5 kg Intake: IV 101 / 101 1000 / 1000 NS Inj 1,000 ML @ 125 mls/hr IV 1000 / 1000 .CONT .Q8H R[facility] Rx#:[id number] Thiamine Inj 100 MG In NS Inj 101 / 101 100 ML @ 100 mls/hr IV.SIG DAILY RUTH Rx#:[id number] Other: # Voids 6 Date of Last Bowel Movement 02/14/18 02/16/18 02/16/18 # Bowel Movements 1 - Constitutional no acute distress - Routine HEENT Exam Head: Present: normocephalic, atraumatic - Routine Respiratory Exam Present: CTA bilaterally. Absent: accessory muscle use - Routine Cardiovascular Exam Present: RRR - Routine Abdominal Exam Present: soft, normoactive bowel sounds, tenderness (upper abdominal tenderness ), distended. Absent: rebound, guarding, firm, rigid - Routine Skin Exam Present: dry, warm - Routine Neurological Exam Present: alert, oriented X3 <Dhara Roman - Last Filed: 02/17/18 12:49> Vital signs: Vital Signs 02/16/18 23:30 02/17/18 00:00 02/17/18 04:00 Temperature 98.4 F 98.6 F Pulse Rate 87 93 H 95 H Respiratory Rate 17 18 Blood Pressure 108/68 107/67 Pulse Oximetry 99 99 02/17/18 05:00 02/17/18 08:00 02/17/18 12:07 Temperature 97.3 F L 97.8 F Pulse Rate 81 92 H 90 Respiratory Rate 18 18 Blood Pressure 124/79 119/65 Pulse Oximetry 96 98 02/17/18 16:23 Temperature 97.9 F Pulse Rate 85 Respiratory Rate 17 Blood Pressure 120/69 Pulse Oximetry 100 Intake & Output 02/17/18 02/17/18 02/18/18 06:59 18:59 06:59 Intake Total 1000 / 1000 1101 / 1101 Balance 1000 / 1000 1101 / 1101 Weight 67.5 kg Intake: IV 1000 / 1000 1101 / 1101 NS Inj 1,000 ML @ 125 mls/hr IV 1000 / 1000 1000 / 1000 .CONT .Q8H RUTH Rx#:[id number] Thiamine Inj 100 MG In NS Inj 101 / 101 100 ML @ 100 mls/hr IV.SIG DAILY RUTH Rx#:[id number] Other: # Voids 6 4 Date of Last Bowel Movement 02/16/18 02/16/18 # Bowel Movements 1 5 <Joanne Harvey A - Last Filed: 02/17/18 20:13> Results - Labs CBC & Chem 7: 02/17/18 04:59 02/17/18 04:59 Laboratory Results - last 24 hr 02/16/18 02/16/18 02/17/18 16:53 22:06 04:59 WBC RBC Hgb Hct MCV MCH MCHC RDW Plt Count MPV Neut % (Auto) Lymph % (Auto) [place] % (Auto) Eos % (Auto) Baso % (Auto) Neut # (Auto) Lymph # (Auto) [place] # (Auto) Eos # (Auto) Baso # (Auto) WBC Differential Differential Comment Sodium 141 Potassium 3.0 L D Chloride 107 Carbon Dioxide 22.0 Anion Gap 12 BUN 6 L Creatinine 0.47 L Estimated GFR Greater than 89 POC Glucose 102 107 Random Glucose 87 Calcium 8.5 D Lipase 2749 H 02/17/18 02/17/18 02/17/18 04:59 08:18 12:10 WBC 7.7 RBC 2.91 L Hgb 9.9 L Hct 30.0 L MCV 103.1 H MCH 33.9 MCHC 32.9 RDW 15.6 Plt Count 460 H MPV 7.7 Neut % (Auto) 49.0 Lymph % (Auto) 27.6 [place] % (Auto) 21.2 H Eos % (Auto) 1.6 Baso % (Auto) 0.6 Neut # (Auto) 3.8 Lymph # (Auto) 2.1 [place] # (Auto) 1.6 H Eos # (Auto) 0.1 Baso # (Auto) 0.0 WBC Differential . Differential Comment Auto diff final Sodium Potassium Chloride Carbon Dioxide Anion Gap BUN Creatinine Estimated GFR POC Glucose 97 102 Random Glucose Calcium Lipase <Dhara Roman - Last Filed: 02/17/18 12:49> - Labs CBC & Chem 7: 02/17/18 04:59 02/17/18 04:59 Laboratory Results - last 24 hr 02/16/18 02/17/18 02/17/18 22:06 04:59 04:59 WBC 7.7 RBC 2.91 L Hgb 9.9 L Hct 30.0 L MCV 103.1 H MCH 33.9 MCHC 32.9 RDW 15.6 Plt Count 460 H MPV 7.7 Neut % (Auto) 49.0 Lymph % (Auto) 27.6 [place] % (Auto) 21.2 H Eos % (Auto) 1.6 Baso % (Auto) 0.6 Neut # (Auto) 3.8 Lymph # (Auto) 2.1 [place] # (Auto) 1.6 H Eos # (Auto) 0.1 Baso # (Auto) 0.0 WBC Differential . Differential Comment Auto diff final Sodium 141 Potassium 3.0 L D Chloride 107 Carbon Dioxide 22.0 Anion Gap 12 BUN 6 L Creatinine 0.47 L Estimated GFR Greater than 89 POC Glucose 107 Random Glucose 87 Calcium 8.5 D Lipase 2749 H 02/17/18 02/17/18 02/17/18 08:18 12:10 16:21 WBC RBC Hgb Hct MCV MCH MCHC RDW Plt Count MPV Neut % (Auto) Lymph % (Auto) [place] % (Auto) Eos % (Auto) Baso % (Auto) Neut # (Auto) Lymph # (Auto) [place] # (Auto) Eos # (Auto) Baso # (Auto) WBC Differential Differential Comment Sodium Potassium Chloride Carbon Dioxide Anion Gap BUN Creatinine Estimated GFR POC Glucose 97 102 89 Random Glucose Calcium Lipase <Joanne Harvey - Last Filed: 02/17/18 20:13> Assessment and Plan (1) Bright red rectal bleeding Status: Acute Code(s): K62.5 - Hemorrhage of anus and rectum (2) Acute pancreatitis Status: Acute Code(s): K85.90 - Acute pancreatitis without necrosis or infection, unspecified - Plan Assessment: - Acute pancreatitis- Lipase 2605 CT abdomen and pelvis WO IV contrast (02/07) Findings characteristic of acute pancreatitis with diffuse pancreatic enlargement, induration of the peripancreatic fat and the fat of the mesentery extending into the right lower quadrant, and mild free fluid along Gerota's fascia and right paracolic gutter. Severe steatosis of the liver. No calcified gallstones. Pt reports daily ETOH use, states last drink was 2 days prior to admission to the hospital Denies history of pancreatitis. - Elevated LFTs consistent with ETOH abuse Abdomen US --> Echogenic liver compatible with fatty infiltration or hepatocellular disease. - BRBPR- Pt reports bright red blood after BMs but states she thinks it is sometimes mixed in with the stool- Has never had colonoscopy. Does report chronic constipation and having to straining with BMs. Has known hemorrhoids and uses OTC creams (02/17) Pt reports eating and drinking with no issues. Denies nausea and vomiting. Continued upper abdominal pain. Also complaining of continued BRB with bowel movements. Agreeable to colonoscopy tomorrow Plan Colonoscopy with [facility] tomorrow Obtain consent Clear liquids today Golytely prep NPO after MN Monitor H/H Pain medication PRN IV fluids ETOH cessation Further recommendations based on findings of above Patient has been seen and examined by myself and Dr. Harvey and this note is written on his behalf <Dhara Roman - Last Filed: 02/17/18 12:49> (1) Bright red rectal bleeding Status: Acute Code(s): K62.5 - Hemorrhage of anus and rectum (2) Acute pancreatitis Status: Acute Code(s): K85.90 - Acute pancreatitis without necrosis or infection, unspecified - Attending Attestation Seen and examined, plan as above. Will schedule colonoscopy in AM. Further recommendations to follow. <Joanne Harvey - Last Filed: 02/17/18 20:13> <Dhara Roman - Last Filed: 02/17/18 12:49> (2) Acute pancreatitis Qualifiers: Pancreatitis type: unspecified pancreatitis type Acute pancreatitis complication: unspecified Qualified Code(s): K85.90 - Acute pancreatitis without necrosis or infection, unspecified <Joanne Harvey - Last Filed: 02/17/18 20:13> (2) Acute pancreatitis Qualifiers: Pancreatitis type: unspecified pancreatitis type Acute pancreatitis complication: unspecified Qualified Code(s): K85.90 - Acute pancreatitis without necrosis or infection, unspecified
[2018-02-17] MEDS ORDERED: PEG 3350/E-Lyte Soln 4000 ML Bottle PO ONE (16:00)
[2018-02-18] MEDS: Potassium Chloride Inj 30 MEQ in Dextrose 5%/NaCl 0.45% Inj 1,000 ML IV.SIG SCH ×4 (00:09→20:30)
[2018-02-18] MEDS: Sod Chloride 0.9% Inj 1,000 ML IV.CONT SCH ×2 (01:45→08:04)
[2018-02-18] MEDS: Enoxaparin Inj 40 MG/0.4 ML Syringe SQ SCH (06:24)
[2018-02-18] MEDS: Thiamine Inj 100 MG in Sodium Chlor 0.9% Inj 100 ML IV.SIG SCH ×2 (07:21→08:05)
[2018-02-18 07:32] LABS: Baso # (Auto) 0.1 th/mm3 (0.0-0.2); Baso % (Auto) 0.9 % (0.0-2.0); Eos # (Auto) 0.1 th/mm3 (0.0-0.4); Eos % (Auto) 1.1 % (0.0-4.0); Hematocrit 31.2 % (35.0-46.0); Hemoglobin 10.6 gm/dL (11.6-15.3); Lymph # (Auto) 2.3 th/mm3 (1.0-4.8); Mean Corpuscular HGB Conc 33.8 % (32.0-36.0); Mean Corpuscular Hemoglobin 34.8 pg (27.0-34.0); Mean Platelet Volume 7.5 fL (7.0-11.0); Mono # (Auto) 1.3 th/mm3 (0.0-0.9); Mono % (Auto) 16.2 % (0.0-8.0); Neut # (Auto) 4.2 th/mm3 (1.8-7.7); Neut % (Auto) 52.8 % (16.0-70.0); Platelet Count 513 th/mm3 (150-450); Red Blood Count 3.03 mil/mm3 (4.00-5.30); Red Cell Distribution Width 15.3 % (11.6-17.2); White Blood Count 7.9 th/mm3 (4.0-11.0)
[2018-02-18 07:51] LABS: Anion Gap 10 meq/L (5-15); Blood Urea Nitrogen 2 mg/dL (7-18); Carbon Dioxide 23.3 meq/L (21.0-32.0); Chloride 113 meq/L (98-107); Glomerular Filtration Rate Greater Than 89 mL/min (>89); Glucose,Random 72 mg/dL (74-106); Potassium 3.1 meq/L (3.5-5.1); Sodium 146 meq/L (136-145)
[2018-02-18] MEDS: Insulin NovoLOG Aspart Correctional Sugar Inj SQ SCH ×4 (08:03→21:00)
[2018-02-18] MEDS: Famotidine 20 MG Tablet PO SCH ×2 (08:04→21:26)
[2018-02-18] MEDS: Magnesium Oxide 400 MG Tablet PO SCH (08:04)
[2018-02-18] MEDS: Hydrocortisone Acetate 25 MG Supp RECTAL SCH ×2 (08:04→21:26)
[2018-02-18] MEDS: Folic Acid 1 MG Tablet PO SCH (08:04)
[2018-02-18] MEDS: Senna/Docusate Sodium 8.6/50 MG Tablet PO SCH ×2 (08:05→21:26)
[2018-02-18] MEDS ORDERED: Lidocaine PF 1% Inj 5 ML Syringe INFILTRATN ONE (12:00)
--- NOTE | 2018-02-18 12:31 | GIPROC ---
[facility] [address] [facility]. [facility], [address] COLONOSCOPY PROCEDURE REPORT EXAM DATE: 02/18/2018 PATIENT NAME: Polly Marina MR #: [id number] BIRTHDATE: 1990 ENDOSCOPIST: Joanne Harvey MD ORDER #: [id number] INFORMATION SECURITY SYSTEMS INSTRUCTOR: Shawn Torres and Tameka Crespo STATUS: inpatient INDICATIONS: The patient is a 27 yr old female here for a colonoscopy due to rectal bleeding PROCEDURE PERFORMED: Colonoscopy, diagnostic MEDICATIONS: None and Per Anesthesia. PREP QUALITY: poor PREP TYPE:Magnesium Citrate ESTIMATED BLOOD LOSS: None CONSENT: The patient understands the risks and benefits of the procedure and understands that these risks include, but are not limited to: sedation, allergic reaction, infection, perforation and/or bleeding. Alternative means of evaluation and treatment include, among others: physical exam, x-rays, and/or surgical intervention. The patient elects to proceed with this endoscopic procedure. medical equipment was checked for proper function. Hand hygiene and appropriate measures for infection prevention was taken. After the risks, benefits and alternatives of the procedure were thoroughly explained, Informed consent was verified, confirmed and timeout was successfully executed by the treatment team. A digital exam revealed no abnormalities of the rectum The Pentax [id number] endoscope was introduced through the anus and advanced to the cecum, which was identified by both the appendix and ileocecal valve. The instrument was then slowly withdrawn as the colon was fully examined. COLON FINDINGS: The colonic mucosa appeared normal throughout the entire examined colon and in the terminal ileum. Retroflexed views revealed no abnormalities The scope was then completely withdrawn from the patient and the procedure terminated. PROCEDURE WITHDRAWAL TIME:9minutes ADVERSE EVENTS: There were no complications. IMPRESSIONS: 1. The colonic mucosa appeared normal throughout the entire examined colon and in the terminal ileum although limited by poor bowel prep. 2. Retroflexed views revealed no abnormalities RECOMMENDATIONS: 1. No treatment 2. High fiber diet RECALL: Return 10 years Colonoscopy Joanne Harvey MD eSigned: Joanne Harvey MD 02/18/2018 12:31 PM cc: PATIENT NAME: Polly Marina MR#: [id number]
[2018-02-18] MEDS ORDERED: Potassium Chloride Inj 40 MEQ in Sodium Chloride 0.45 % Inj 1,000 ML IV.CONT SCH (15:00)
--- NOTE | 2018-02-18 15:25 | P.PNIM ---
Subjective Interval history: The patient was anxiously awaiting her meal. She said that she had some soreness following the colonoscopy. She said she has not had nausea but she still has abdominal pain. Physical Exam Vital signs: Vital Signs 02/17/18 16:23 02/17/18 20:00 02/18/18 00:00 Temperature 97.9 F 98.9 F 97.9 F Pulse Rate 85 89 103 H Respiratory Rate 17 20 17 Blood Pressure 120/69 124/70 125/63 Pulse Oximetry 100 100 99 02/18/18 04:00 02/18/18 08:11 02/18/18 12:35 Temperature 98.4 F 98.9 F 97.2 F L Pulse Rate 96 H 88 85 Respiratory Rate 19 16 18 Blood Pressure 117/58 L 117/57 L 91/52 L Pulse Oximetry 98 100 94 L 02/18/18 13:01 Temperature Pulse Rate 84 Respiratory Rate 18 Blood Pressure 117/69 Pulse Oximetry 98 Intake & Output 02/17/18 02/18/18 02/18/18 18:59 06:59 18:59 Intake Total 1101 / 1101 1250 / 1250 1366 / 1366 Output Total 500 / 500 Balance 1101 / 1101 750 / 750 1366 / 1366 Weight 67.5 kg Intake: IV 1101 / 1101 1000 / 1000 1116 / 1116 NS Inj 1,000 ML @ 125 mls/hr IV 1000 / 1000 1000 / 1000 .CONT .Q8H RUTH Rx#:[id number] KCl Inj 30 MEQ In D5W/1/2 NS 1015 / 1015 Inj 1,000 ML @ 125 mls/hr IV. SIG .Q8H8M RUTH Rx#:[id number] Thiamine Inj 100 MG In NS Inj 101 / 101 101 / 101 100 ML @ 100 mls/hr IV.SIG DAILY RUTH Rx#:[id number] Oral 250 / 250 Anesthesia Amount 250 / 250 Output: Urine 500 / 500 Other: # Voids 4 Date of Last Bowel Movement 02/16/18 02/18/18 # Bowel Movements 5 Narrative: GENERAL: No acute distress. CARDIOVASCULAR: Regular, tachycardic, sinus tach on monitor 101. No murmurs rubs or gallops. RESPIRATORY: No accessory muscle use. Clear to auscultation. Breath sounds equal bilaterally. GASTROINTESTINAL: Bowel sounds present. Abdomen soft, mild epigastric tenderness. MUSCULOSKELETAL: Extremities without clubbing, cyanosis, or edema. No obvious deformities. NEUROLOGICAL: Awake alert and oriented. Moves all extremities spontaneously. No focal deficit. Results - Labs CBC & Chem 7: 02/18/18 06:36 02/18/18 06:36 Laboratory Results - last 24 hr 02/17/18 02/17/18 02/18/18 16:21 20:20 06:36 WBC 7.9 RBC 3.03 L Hgb 10.6 L Hct 31.2 L MCV 103.0 H MCH 34.8 H MCHC 33.8 RDW 15.3 Plt Count 513 H MPV 7.5 Neut % (Auto) 52.8 Lymph % (Auto) 29.0 [place] % (Auto) 16.2 H Eos % (Auto) 1.1 Baso % (Auto) 0.9 Neut # (Auto) 4.2 Lymph # (Auto) 2.3 [place] # (Auto) 1.3 H Eos # (Auto) 0.1 Baso # (Auto) 0.1 WBC Differential . Differential Comment Auto diff final Sodium Potassium Chloride Carbon Dioxide Anion Gap BUN Creatinine Estimated GFR POC Glucose 89 167 H Random Glucose Calcium 02/18/18 02/18/18 02/18/18 06:36 07:24 12:36 WBC RBC Hgb Hct MCV MCH MCHC RDW Plt Count MPV Neut % (Auto) Lymph % (Auto) [place] % (Auto) Eos % (Auto) Baso % (Auto) Neut # (Auto) Lymph # (Auto) [place] # (Auto) Eos # (Auto) Baso # (Auto) WBC Differential Differential Comment Sodium 146 H Potassium 3.1 L Chloride 113 H Carbon Dioxide 23.3 Anion Gap 10 BUN 2 L Creatinine 0.54 Estimated GFR Greater than 89 POC Glucose 83 81 Random Glucose 72 L Calcium 9.0 - Procedures Colonoscopy Assessment and Plan - Plan EtOH dependence with withdrawals, withdrawals have resolved. Acute metabolic encephalopathy, resolved CT brain 7/2negative Thiamine/folate acid/multivitamin supplementation. Previously received increased doses of folic acid/pyridoxine per poison control recommendations, now backed off doses. Monitor for signs of alcohol withdrawal, [facility] protocol. Pt states last alcoholic beverage was 02/06. Drinks 2-6 drinks/day Depression Pt was started on citalopram 02/03. States she doesn't want to take it anymore, says she had a seizure 02/04 and attributes it to the med. Acute pancreatitis Transaminitis Hepatic steatosis Rectal bleeding per patient. Monitor H/H , consult GI . H&H is stable. Colonoscopy negative. Likely secondary to alcohol abuse. Triglyceride level mildly elevated, not the cause of her pancreatitis. . Her only medications were propranolol, single dose of Cipro on 02/03 for ?UTI and single does escitalopram. No evidence of biliary obstruction on CT. abdominal ultrasound 02/09 fatty infiltration of liver. Advance to full liquid diet. Check lipase, trending down however not back to baseline monitor lipase. Lipase daily. Patient still with pain. Will start IV fluids. Very high anion gap metabolic acidosis, anion gap 39 upon presentation. ( resolved) Osmolar gap, 24 (resolved) Alcoholic ketoacidosis (resolved) Hypophosphatemia Hypokalemia Very high anion gap is may have multifactorial secondary to AKA with lactic acidemia and elevated beta hydroxybutyrate. However unable to rule out ethylene glycol toxicity and patient was a poor historian with severe symptoms. Discussed with poison control who recommended initiation of Fomepizole and hemodialysis. Nephrology was consulted. Right IJ Vas-Cath placed and she underwent HD on 02/08. Osmolar and anion gap now closed. Stop fomepizole. Removed Vascath. Replaced electrolytes per electrolyte replacement protocol. 1/2 NS with KCl. Leukocytosis, likely reactive. (resolved) Monitor for signs and symptoms of infection. Follow-up blood cultures U/a negative for infection. ENDO: Acute hyperglycemia Monitor bedside glucose every 6 hours and initiate low-dose insulin sliding scale as indicated. PROPH: SCDs/low for DVT prophylaxis. Pepcid for stress ulcer prophylaxis.
[2018-02-18] MEDS: Potassium Chloride Inj 40 MEQ in Sodium Chloride 0.45 % Inj 1,000 ML IV.CONT SCH (16:43)
[2018-02-19] MEDS: Potassium Chloride Inj 40 MEQ in Sodium Chloride 0.45 % Inj 1,000 ML IV.CONT SCH ×2 (02:15→17:35)
[2018-02-19] MEDS: Enoxaparin Inj 40 MG/0.4 ML Syringe SQ SCH (06:10)
[2018-02-19 07:34] LABS: Baso # (Auto) 0.1 th/mm3 (0.0-0.2); Eos # (Auto) 0.1 th/mm3 (0.0-0.4); Eos % (Auto) 1.5 % (0.0-4.0); Hematocrit 30.5 % (35.0-46.0); Hemoglobin 10.2 gm/dL (11.6-15.3); Lymph # (Auto) 2.4 th/mm3 (1.0-4.8); Lymph % (Auto) 27.2 % (9.0-44.0); Mean Corpuscular HGB Conc 33.4 % (32.0-36.0); Mean Corpuscular Hemoglobin 34.3 pg (27.0-34.0); Mean Corpuscular Volume 102.8 fL (80.0-100.0); Mean Platelet Volume 7.6 fL (7.0-11.0); Mono # (Auto) 1.4 th/mm3 (0.0-0.9); Mono % (Auto) 15.3 % (0.0-8.0); Neut # (Auto) 4.9 th/mm3 (1.8-7.7); Platelet Count 500 th/mm3 (150-450); Red Blood Count 2.97 mil/mm3 (4.00-5.30); Red Cell Distribution Width 15.3 % (11.6-17.2); White Blood Count 8.9 th/mm3 (4.0-11.0)
[2018-02-19 07:45] LABS: Anion Gap 12 meq/L (5-15); Blood Urea Nitrogen 2 mg/dL (7-18); Carbon Dioxide 21.4 meq/L (21.0-32.0); Chloride 110 meq/L (98-107); Glucose,Random 73 mg/dL (74-106); Lipase 2378 U/L (73-393); Potassium 3.5 meq/L (3.5-5.1); Sodium 143 meq/L (136-145)
[2018-02-19] MEDS: Potassium Chloride Inj 30 MEQ in Dextrose 5%/NaCl 0.45% Inj 1,000 ML IV.SIG SCH (09:02)
[2018-02-19] MEDS: Insulin NovoLOG Aspart Correctional Sugar Inj SQ SCH ×4 (09:02→22:11)
[2018-02-19] MEDS: Folic Acid 1 MG Tablet PO SCH (09:03)
[2018-02-19] MEDS: Magnesium Oxide 400 MG Tablet PO SCH (09:04)
[2018-02-19] MEDS: Senna/Docusate Sodium 8.6/50 MG Tablet PO SCH ×2 (09:04→22:00)
[2018-02-19] MEDS: Famotidine 20 MG Tablet PO SCH ×2 (09:04→21:59)
[2018-02-19] MEDS: Thiamine Inj 100 MG in Sodium Chlor 0.9% Inj 100 ML IV.SIG SCH (09:04)
[2018-02-19] MEDS: Hydrocortisone Acetate 25 MG Supp RECTAL SCH ×2 (09:04→22:03)
--- NOTE | 2018-02-19 10:18 | P.PNIM ---
Subjective Interval history: The patient was resting comfortably in bed. She said she was taking a nap per her schedule. She still complained of abdominal pain. She said she was trying to avoid snacking at midnight. Discussed with nurse. Physical Exam Vital signs: Vital Signs 02/18/18 12:35 02/18/18 13:01 02/18/18 16:51 Temperature 97.2 F L 98.8 F Pulse Rate 85 84 95 H Respiratory Rate 18 18 16 Blood Pressure 91/52 L 117/69 116/72 Pulse Oximetry 94 L 98 100 02/18/18 20:00 02/19/18 00:00 02/19/18 04:00 Temperature 98.3 F 98.4 F 98.5 F Pulse Rate 102 H 92 H 86 Respiratory Rate 20 18 20 Blood Pressure 113/62 113/73 117/73 Pulse Oximetry 97 97 95 02/19/18 08:00 Temperature 98.5 F Pulse Rate 83 Respiratory Rate 18 Blood Pressure 147/67 H Pulse Oximetry 100 Intake & Output 02/18/18 02/19/18 02/19/18 18:59 06:59 18:59 Intake Total 1817 / 1817 1000 / 1000 1500 / 1500 Balance 1817 / 1817 1000 / 1000 1500 / 1500 Weight 67.5 kg Intake: IV 1567 / 1567 1500 / 1500 KCl Inj 40 MEQ In 1/2 Normal 1000 / 1000 Saline Inj 1,000 ML @ 100 mls/ hr IV.CONT .[id number] RUTH Rx#: [id number] NS Inj 1,000 ML @ 125 mls/hr IV 451 / 451 .CONT .Q8H RUTH Rx#:[id number] KCl Inj 30 MEQ In D5W/1/2 NS 1015 / 1015 Inj 1,000 ML @ 125 mls/hr IV. SIG .Q8H8M RUTH Rx#:[id number] Thiamine Inj 100 MG In NS Inj 101 / 101 100 ML @ 100 mls/hr IV.SIG DAILY RUTH Rx#:[id number] Oral 1000 / 1000 Anesthesia Amount 250 / 250 Other: # Voids 5 Date of Last Bowel Movement 02/18/18 02/18/18 Narrative: GENERAL: No acute distress. CARDIOVASCULAR: Regular, tachycardic, sinus tach on monitor 101. No murmurs rubs or gallops. RESPIRATORY: No accessory muscle use. Clear to auscultation. Breath sounds equal bilaterally. GASTROINTESTINAL: Bowel sounds present. Abdomen soft, mild epigastric tenderness. MUSCULOSKELETAL: Extremities without clubbing, cyanosis, or edema. No obvious deformities. NEUROLOGICAL: Awake alert and oriented. Moves all extremities spontaneously. No focal deficit. Results - Labs CBC & Chem 7: 02/19/18 06:27 02/19/18 06:21 Laboratory Results - last 24 hr 02/18/18 02/18/18 02/19/18 12:36 16:47 06:21 WBC RBC Hgb Hct MCV MCH MCHC RDW Plt Count MPV Neut % (Auto) Lymph % (Auto) [place] % (Auto) Eos % (Auto) Baso % (Auto) Neut # (Auto) Lymph # (Auto) [place] # (Auto) Eos # (Auto) Baso # (Auto) WBC Differential Differential Comment Sodium 143 Potassium 3.5 Chloride 110 H Carbon Dioxide 21.4 Anion Gap 12 BUN 2 L Creatinine 0.42 L POC Glucose 81 111 H Random Glucose 73 L Calcium 9.0 Lipase 2378 H 02/19/18 06:27 WBC 8.9 RBC 2.97 L Hgb 10.2 L Hct 30.5 L MCV 102.8 H MCH 34.3 H MCHC 33.4 RDW 15.3 Plt Count 500 H MPV 7.6 Neut % (Auto) 55.0 Lymph % (Auto) 27.2 [place] % (Auto) 15.3 H Eos % (Auto) 1.5 Baso % (Auto) 1.0 Neut # (Auto) 4.9 Lymph # (Auto) 2.4 [place] # (Auto) 1.4 H Eos # (Auto) 0.1 Baso # (Auto) 0.1 WBC Differential . Differential Comment Auto diff final Sodium Potassium Chloride Carbon Dioxide Anion Gap BUN Creatinine POC Glucose Random Glucose Calcium Lipase - Procedures Colonoscopy Assessment and Plan - Plan EtOH dependence with withdrawals, withdrawals have resolved. Acute metabolic encephalopathy, resolved CT brain 7/2negative Thiamine/folate acid/multivitamin supplementation. Previously received increased doses of folic acid/pyridoxine per poison control recommendations, now backed off doses. -[facility] protocol. Pt states last alcoholic beverage was 02/06. Drinks 2-6 drinks/day Depression Pt was started on citalopram 02/03. States she doesn't want to take it anymore, says she had a seizure 02/04 and attributes it to the med. Acute pancreatitis Transaminitis Hepatic steatosis Rectal bleeding per patient. Monitor H/H , consult GI . H&H is stable. Colonoscopy negative. Likely secondary to alcohol abuse. Triglyceride level mildly elevated, not the cause of her pancreatitis. . Her only medications were propranolol, single dose of Cipro on 02/03 for ?UTI and single does escitalopram. No evidence of biliary obstruction on CT. abdominal ultrasound 02/09 fatty infiltration of liver. -Diet per GI -Check lipase, trending down however not back to baseline. Lipase daily. Patient still with pain. Continue IV fluids. Very high anion gap metabolic acidosis, anion gap 39 upon presentation. ( resolved) Osmolar gap, 24 (resolved) Alcoholic ketoacidosis (resolved) Hypophosphatemia Hypokalemia Very high anion gap is may have multifactorial secondary to AKA with lactic acidemia and elevated beta hydroxybutyrate. However unable to rule out ethylene glycol toxicity and patient was a poor historian with severe symptoms. Discussed with poison control who recommended initiation of Fomepizole and hemodialysis. Nephrology was consulted. Right IJ Vas-Cath placed and she underwent HD on 02/08. Osmolar and anion gap now closed. Stop fomepizole. Removed Vascath. Replaced electrolytes per electrolyte replacement protocol. -1/2 NS with KCl. Leukocytosis, likely reactive. (resolved) Monitor for signs and symptoms of infection. Follow-up blood cultures U/a negative for infection. ENDO: Acute hyperglycemia Monitor bedside glucose every 6 hours and initiate low-dose insulin sliding scale as indicated. PROPH: SCDs/low for DVT prophylaxis. Pepcid for stress ulcer prophylaxis. Discharge Planning: Needs GI clearance
--- NOTE | 2018-02-19 14:36 | P.PNGI ---
Subjective Interval history: Pt resting in bed, still having some generalized abdominal pain. Of note, pt has chocolate and gummies at bedside. Reports one wave of nausea earlier, relieved after one episode of emesis. Reports still having to strain with BMs but has not noticed any blood in her stool since colonoscopy. <Dhara Roman - Last Filed: 02/19/18 14:32> Physical Exam Vital signs: Vital Signs 02/18/18 16:51 02/18/18 20:00 02/19/18 00:00 Temperature 98.8 F 98.3 F 98.4 F Pulse Rate 95 H 102 H 92 H Respiratory Rate 16 20 18 Blood Pressure 116/72 113/62 113/73 Pulse Oximetry 100 97 97 02/19/18 04:00 02/19/18 08:00 02/19/18 12:00 Temperature 98.5 F 98.5 F 98.1 F Pulse Rate 86 85 100 H Respiratory Rate 20 18 17 Blood Pressure 117/73 147/67 H 129/58 L Pulse Oximetry 95 100 100 Intake & Output 02/18/18 02/19/18 02/19/18 18:59 06:59 18:59 Intake Total 1817 / 1817 1000 / 1000 1500 / 1500 Balance 1817 / 1817 1000 / 1000 1500 / 1500 Weight 67.5 kg Intake: IV 1567 / 1567 1500 / 1500 KCl Inj 40 MEQ In 1/2 Normal 1000 / 1000 Saline Inj 1,000 ML @ 100 mls/ hr IV.CONT .[id number] [facility] Rx#: [id number] NS Inj 1,000 ML @ 125 mls/hr IV 451 / 451 .CONT .Q8H R[facility] Rx#:[id number] KCl Inj 30 MEQ In D5W/1/2 NS 1015 / 1015 Inj 1,000 ML @ 125 mls/hr IV. SIG .[id number] [facility] Rx#:[id number] Thiamine Inj 100 MG In NS Inj 101 / 101 100 ML @ 100 mls/hr IV.SIG DAILY R[facility] Rx#:[id number] Oral 1000 / 1000 Anesthesia Amount 250 / 250 Other: # Voids 5 Date of Last Bowel Movement 02/18/18 02/18/18 02/18/18 - Constitutional no acute distress - Routine HEENT Exam Head: Present: normocephalic, atraumatic - Routine Respiratory Exam Absent: accessory muscle use - Routine Cardiovascular Exam Present: RRR - Routine Abdominal Exam Present: soft, normoactive bowel sounds, tenderness (generalized tenderness ). Absent: distended, rebound, guarding, firm, rigid - Routine Skin Exam Present: dry, warm - Routine Neurological Exam Present: alert, oriented X3 <Dhara Roman - Last Filed: 02/19/18 14:32> Vital signs: Vital Signs 02/19/18 00:00 02/19/18 04:00 02/19/18 08:00 Temperature 98.4 F 98.5 F 98.5 F Pulse Rate 92 H 86 85 Respiratory Rate 18 20 18 Blood Pressure 113/73 117/73 147/67 H Pulse Oximetry 97 95 100 02/19/18 12:00 02/19/18 16:00 Temperature 98.1 F 98.5 F Pulse Rate 100 H 92 H Respiratory Rate 17 18 Blood Pressure 129/58 L 106/61 Pulse Oximetry 100 96 Intake & Output 02/19/18 02/19/18 02/20/18 06:59 18:59 06:59 Intake Total 1000 / 1000 3580 / 3580 Output Total 0 / 0 Balance 1000 / 1000 3580 / 3580 Weight 67.5 kg Intake: IV 1620 / 1620 KCl Inj 40 MEQ In 1/2 Normal 1020 / 1020 Saline Inj 1,000 ML @ 100 mls/ hr IV.CONT .[id number] [facility] Rx#: [id number] Thiamine Inj 100 MG In NS Inj 100 / 100 100 ML @ 100 mls/hr IV.SIG DAILY R[facility] Rx#:[id number] Oral 1000 / 1000 1959 / 1959 Output: Stool 0 / 0 Hemodialysis Amount 0 / 0 Other: # Voids 5 3 Date of Last Bowel Movement 02/18/18 02/18/18 # Bowel Movements 1 <Joanne Harvey - Last Filed: 02/19/18 21:13> Results - Labs CBC & Chem 7: 02/19/18 06:27 02/19/18 06:21 Laboratory Results - last 24 hr 02/18/18 02/19/18 02/19/18 16:47 06:21 06:27 WBC 8.9 RBC 2.97 L Hgb 10.2 L Hct 30.5 L MCV 102.8 H MCH 34.3 H MCHC 33.4 RDW 15.3 Plt Count 500 H MPV 7.6 Neut % (Auto) 55.0 Lymph % (Auto) 27.2 [place] % (Auto) 15.3 H Eos % (Auto) 1.5 Baso % (Auto) 1.0 Neut # (Auto) 4.9 Lymph # (Auto) 2.4 [place] # (Auto) 1.4 H Eos # (Auto) 0.1 Baso # (Auto) 0.1 WBC Differential . Differential Comment Auto diff final Sodium 143 Potassium 3.5 Chloride 110 H Carbon Dioxide 21.4 Anion Gap 12 BUN 2 L Creatinine 0.42 L POC Glucose 111 H Random Glucose 73 L Calcium 9.0 Lipase 2378 H 02/19/18 12:12 WBC RBC Hgb Hct MCV MCH MCHC RDW Plt Count MPV Neut % (Auto) Lymph % (Auto) [place] % (Auto) Eos % (Auto) Baso % (Auto) Neut # (Auto) Lymph # (Auto) [place] # (Auto) Eos # (Auto) Baso # (Auto) WBC Differential Differential Comment Sodium Potassium Chloride Carbon Dioxide Anion Gap BUN Creatinine POC Glucose 108 Random Glucose Calcium Lipase - Procedures Colonoscopy <Dhara Roman - Last Filed: 02/19/18 14:32> - Labs CBC & Chem 7: 02/19/18 06:27 02/19/18 06:21 Laboratory Results - last 24 hr 02/19/18 02/19/18 02/19/18 06:21 06:27 12:12 WBC 8.9 RBC 2.97 L Hgb 10.2 L Hct 30.5 L MCV 102.8 H MCH 34.3 H MCHC 33.4 RDW 15.3 Plt Count 500 H MPV 7.6 Neut % (Auto) 55.0 Lymph % (Auto) 27.2 [place] % (Auto) 15.3 H Eos % (Auto) 1.5 Baso % (Auto) 1.0 Neut # (Auto) 4.9 Lymph # (Auto) 2.4 [place] # (Auto) 1.4 H Eos # (Auto) 0.1 Baso # (Auto) 0.1 WBC Differential . Differential Comment Auto diff final Sodium 143 Potassium 3.5 Chloride 110 H Carbon Dioxide 21.4 Anion Gap 12 BUN 2 L Creatinine 0.42 L POC Glucose 108 Random Glucose 73 L Calcium 9.0 Lipase 2378 H 02/19/18 02/19/18 17:31 20:23 WBC RBC Hgb Hct MCV MCH MCHC RDW Plt Count MPV Neut % (Auto) Lymph % (Auto) [place] % (Auto) Eos % (Auto) Baso % (Auto) Neut # (Auto) Lymph # (Auto) [place] # (Auto) Eos # (Auto) Baso # (Auto) WBC Differential Differential Comment Sodium Potassium Chloride Carbon Dioxide Anion Gap BUN Creatinine POC Glucose 109 129 H Random Glucose Calcium Lipase <Joanne Harvey Jaja - Last Filed: 02/19/18 21:13> Assessment and Plan (1) Bright red rectal bleeding Status: Acute Code(s): K62.5 - Hemorrhage of anus and rectum (2) Acute pancreatitis Status: Acute Code(s): K85.90 - Acute pancreatitis without necrosis or infection, unspecified - Plan Assessment: - Acute pancreatitis- Lipase 2605 CT abdomen and pelvis WO IV contrast (02/07) Findings characteristic of acute pancreatitis with diffuse pancreatic enlargement, induration of the peripancreatic fat and the fat of the mesentery extending into the right lower quadrant, and mild free fluid along Gerota's fascia and right paracolic gutter. Severe steatosis of the liver. No calcified gallstones. Pt reports daily ETOH use, states last drink was 2 days prior to admission to the hospital Denies history of pancreatitis. - Elevated LFTs consistent with ETOH abuse Abdomen US --> Echogenic liver compatible with fatty infiltration or hepatocellular disease. - BRBPR- Pt reports bright red blood after BMs but states she thinks it is sometimes mixed in with the stool- Has never had colonoscopy. Does report chronic constipation and having to straining with BMs. Has known hemorrhoids and uses OTC creams (02/17) Pt reports eating and drinking with no issues. Denies nausea and vomiting. Continued upper abdominal pain. Also complaining of continued BRB with bowel movements. Agreeable to colonoscopy tomorrow (02/19) Pt still complaining of generalized abdominal pain. One wave of nausea earlier relieved after episode of emesis. Denies hematemesis and coffee ground emesis. Of note , pt has chocolate and gummies in room that she has been eating. Lipase remains over 2000 S/P colonoscopy yesterday --> Poor prep, colonic mucosa normal throughout entire examined colon and in the terminal ileum although limited by poor bowel preop. Pt reports still having to strain with BMs, denies any continued blood in stool Plan Low fat diet Recommend pt chose healthier options, especially if lipase remains elevated and abdominal pain continues Repeat colonoscopy in 10 years GI will sign off, continue current treatment for pancreatitis Advised on ETOH cessation Have pt follow up with GI after DC Also will need to maintain a good bowel regimen given chronic opioid use Patient has been seen and examined by myself and Dr. Harvey and this note is written on his behalf <Dhara Roman - Last Filed: 02/19/18 14:32> (1) Bright red rectal bleeding Status: Acute Code(s): K62.5 - Hemorrhage of anus and rectum (2) Acute pancreatitis Status: Acute Code(s): K85.90 - Acute pancreatitis without necrosis or infection, unspecified - Attending Attestation Agree with above assessment and plan. Nothing to add from GI point of view, will sign off for now. <Joanne Harvey - Last Filed: 02/19/18 21:13> <Dhara Roman - Last Filed: 02/19/18 14:32> (2) Acute pancreatitis Qualifiers: Pancreatitis type: unspecified pancreatitis type Acute pancreatitis complication: unspecified Qualified Code(s): K85.90 - Acute pancreatitis without necrosis or infection, unspecified <Joanne Harvey - Last Filed: 02/19/18 21:13> (2) Acute pancreatitis Qualifiers: Pancreatitis type: unspecified pancreatitis type Acute pancreatitis complication: unspecified Qualified Code(s): K85.90 - Acute pancreatitis without necrosis or infection, unspecified
[2018-02-20] MEDS: Potassium Chloride Inj 40 MEQ in Sodium Chloride 0.45 % Inj 1,000 ML IV.CONT SCH (04:57)
[2018-02-20] MEDS: Enoxaparin Inj 40 MG/0.4 ML Syringe SQ SCH (06:08)
[2018-02-20 08:22] LABS: Baso # (Auto) 0.1 th/mm3 (0.0-0.2); Baso % (Auto) 0.9 % (0.0-2.0); Eos # (Auto) 0.1 th/mm3 (0.0-0.4); Eos % (Auto) 1.2 % (0.0-4.0); Hematocrit 30.5 % (35.0-46.0); Hemoglobin 10.8 gm/dL (11.6-15.3); Lymph # (Auto) 2.7 th/mm3 (1.0-4.8); Lymph % (Auto) 26.5 % (9.0-44.0); Mean Corpuscular HGB Conc 35.5 % (32.0-36.0); Mean Corpuscular Hemoglobin 36.4 pg (27.0-34.0); Mean Corpuscular Volume 102.6 fL (80.0-100.0); Mono # (Auto) 1.1 th/mm3 (0.0-0.9); Mono % (Auto) 10.8 % (0.0-8.0); Neut # (Auto) 6.2 th/mm3 (1.8-7.7); Neut % (Auto) 60.6 % (16.0-70.0); Platelet Count 478 th/mm3 (150-450); Red Blood Count 2.97 mil/mm3 (4.00-5.30); White Blood Count 10.3 th/mm3 (4.0-11.0)
[2018-02-20 08:45] LABS: Anion Gap 9 meq/L (5-15); Blood Urea Nitrogen 4 mg/dL (7-18); Calcium 9.1 mg/dL (8.5-10.1); Carbon Dioxide 21.7 meq/L (21.0-32.0); Chloride 110 meq/L (98-107); Glucose,Random 75 mg/dL (74-106); Potassium 3.8 meq/L (3.5-5.1); Sodium 141 meq/L (136-145)
[2018-02-20 08:47] LABS: Lipase 2137 U/L (73-393)
[2018-02-20] MEDS: Famotidine 20 MG Tablet PO SCH ×2 (09:24→20:24)
[2018-02-20] MEDS: Senna/Docusate Sodium 8.6/50 MG Tablet PO SCH ×2 (09:24→20:24)
[2018-02-20] MEDS: Magnesium Oxide 400 MG Tablet PO SCH (09:25)
[2018-02-20] MEDS: Folic Acid 1 MG Tablet PO SCH (09:25)
[2018-02-20] MEDS: Thiamine Inj 100 MG in Sodium Chlor 0.9% Inj 100 ML IV.SIG SCH (09:26)
[2018-02-20] MEDS: Insulin NovoLOG Aspart Correctional Sugar Inj SQ SCH ×3 (12:13→20:45)
[2018-02-20] MEDS: Hydrocortisone Acetate 25 MG Supp RECTAL SCH ×2 (12:14→20:31)
--- NOTE | 2018-02-20 13:00 | P.PNIM ---
Subjective Interval history: The patient was concerned about a rash on her face. She described associated itchiness. She said that the new IV site is a lot better. She had questions about her pain medication. Discussed with nursing. Physical Exam Vital signs: Vital Signs 02/19/18 16:00 02/19/18 20:00 02/20/18 00:00 Temperature 98.5 F 98.2 F 97.2 F L Pulse Rate 92 H 94 H 102 H Respiratory Rate 18 18 Blood Pressure 106/61 112/67 Pulse Oximetry 96 98 98 02/20/18 04:00 02/20/18 08:00 02/20/18 11:00 Temperature 98.1 F 98.8 F Pulse Rate 93 H 113 H Respiratory Rate 20 18 10 L Blood Pressure 110/58 L 128/71 Pulse Oximetry 100 96 Intake & Output 02/19/18 02/20/18 02/20/18 18:59 06:59 18:59 Intake Total 3581 / 3581 1020 / 1020 101 / 101 Output Total 0 / 0 Balance 3581 / 3581 1020 / 1020 101 / 101 Weight 68.9 kg Intake: IV 1621 / 1621 1020 / 1020 101 / 101 KCl Inj 40 MEQ In 1/2 Normal 1020 / 1020 1020 / 1020 Saline Inj 1,000 ML @ 100 mls/ hr IV.CONT .[id number] [facility] Rx#: [id number] Thiamine Inj 100 MG In NS Inj 101 / 101 101 / 101 100 ML @ 100 mls/hr IV.SIG DAILY [facility] Rx#:[id number] Oral 1959 / 1959 Output: Stool 0 / 0 Hemodialysis Amount 0 / 0 Other: # Voids 3 Date of Last Bowel Movement 02/18/18 02/18/18 02/20/18 # Bowel Movements 1 Narrative: GENERAL: No acute distress. SKIN: No rash. CARDIOVASCULAR: Regular, tachycardic. No murmurs rubs or gallops. RESPIRATORY: No accessory muscle use. Clear to auscultation. Breath sounds equal bilaterally. GASTROINTESTINAL: Bowel sounds present. Abdomen soft, epigastric tenderness. MUSCULOSKELETAL: Extremities without clubbing, cyanosis, or edema. No obvious deformities. NEUROLOGICAL: Awake alert and oriented. Moves all extremities spontaneously. No focal deficit. Results - Labs CBC & Chem 7: 02/20/18 07:22 02/20/18 07:22 Laboratory Results - last 24 hr 02/19/18 02/19/18 02/20/18 17:31 20:23 07:22 WBC 10.3 RBC 2.97 L Hgb 10.8 L Hct 30.5 L MCV 102.6 H MCH 36.4 H MCHC 35.5 RDW 15.0 Plt Count 478 H MPV 8.0 Neut % (Auto) 60.6 Lymph % (Auto) 26.5 [place] % (Auto) 10.8 H Eos % (Auto) 1.2 Baso % (Auto) 0.9 Neut # (Auto) 6.2 Lymph # (Auto) 2.7 [place] # (Auto) 1.1 H Eos # (Auto) 0.1 Baso # (Auto) 0.1 WBC Differential . Differential Comment Auto diff final Sodium Potassium Chloride Carbon Dioxide Anion Gap BUN Creatinine POC Glucose 109 129 H Random Glucose Calcium Lipase 02/20/18 02/20/18 02/20/18 07:22 08:08 12:08 WBC RBC Hgb Hct MCV MCH MCHC RDW Plt Count MPV Neut % (Auto) Lymph % (Auto) [place] % (Auto) Eos % (Auto) Baso % (Auto) Neut # (Auto) Lymph # (Auto) [place] # (Auto) Eos # (Auto) Baso # (Auto) WBC Differential Differential Comment Sodium 141 Potassium 3.8 Chloride 110 H Carbon Dioxide 21.7 Anion Gap 9 BUN 4 L Creatinine 0.47 L POC Glucose 82 91 Random Glucose 75 Calcium 9.1 Lipase 2137 H - Procedures Colonoscopy Assessment and Plan - Plan EtOH dependence with withdrawals, withdrawals have resolved. Acute metabolic encephalopathy, resolved CT brain 2negative Thiamine/folate acid/multivitamin supplementation. Previously received increased doses of folic acid/pyridoxine per poison control recommendations, now backed off doses. -WA protocol. Pt states last alcoholic beverage was 02/06. Drinks 2-6 drinks/day Depression Pt was started on citalopram 02/03. States she doesn't want to take it anymore, says she had a seizure 02/04 and attributes it to the med. Acute pancreatitis Transaminitis Hepatic steatosis Rectal bleeding per patient. Monitor H/H , consult GI . H&H is stable. Colonoscopy negative. Likely secondary to alcohol abuse. Triglyceride level mildly elevated, not the cause of her pancreatitis. . Her only medications were propranolol, single dose of Cipro on 02/03 for ?UTI and single does escitalopram. No evidence of biliary obstruction on CT. abdominal ultrasound 02/09 fatty infiltration of liver. -Diet per GI. Will need outpt follow-up. -Check lipase, trending down however not back to baseline. Lipase daily. Patient still with pain. - IVFs. Very high anion gap metabolic acidosis, anion gap 39 upon presentation. ( resolved) Osmolar gap, 24 (resolved) Alcoholic ketoacidosis (resolved) Hypophosphatemia Hypokalemia Very high anion gap is may have multifactorial secondary to AKA with lactic acidemia and elevated beta hydroxybutyrate. However unable to rule out ethylene glycol toxicity and patient was a poor historian with severe symptoms. Discussed with poison control who recommended initiation of Fomepizole and hemodialysis. Nephrology was consulted. Right IJ Vas-Cath placed and she underwent HD on 02/08. Osmolar and anion gap now closed. Stopped fomepizole. Removed Vascath. Replaced electrolytes per electrolyte replacement protocol. -follow BMP. Leukocytosis, likely reactive. (resolved) Monitor for signs and symptoms of infection. Follow-up blood cultures U/a negative for infection. ENDO: Acute hyperglycemia Monitor bedside glucose every 6 hours and initiate low-dose insulin sliding scale as indicated. PROPH: SCDs/low for DVT prophylaxis. Pepcid for stress ulcer prophylaxis. Discharge Planning: Anticipate d/c in AM if lipase remains stable
[2018-02-20] MEDS: Sodium Chloride 0.45 % Inj 1,000 ML IV.CONT SCH ×3 (18:43→22:00)
[2018-02-20] MEDS: Propranolol 10 MG Tablet PO SCH (20:24)
[2018-02-21] MEDS: Enoxaparin Inj 40 MG/0.4 ML Syringe SQ SCH (06:07)
[2018-02-21] MEDS: Sodium Chloride 0.45 % Inj 1,000 ML IV.CONT SCH (06:30)
[2018-02-21] MEDS: Folic Acid 1 MG Tablet PO SCH (09:04)
[2018-02-21] MEDS: Propranolol 10 MG Tablet PO SCH (09:04)
[2018-02-21] MEDS: Famotidine 20 MG Tablet PO SCH (09:05)
[2018-02-21] MEDS: Hydrocortisone Acetate 25 MG Supp RECTAL SCH (09:05)
[2018-02-21] MEDS: Insulin NovoLOG Aspart Correctional Sugar Inj SQ SCH (09:05)
[2018-02-21] MEDS: Magnesium Oxide 400 MG Tablet PO SCH (09:05)
[2018-02-21] MEDS: Senna/Docusate Sodium 8.6/50 MG Tablet PO SCH (09:05)
[2018-02-21] MEDS: Thiamine Inj 100 MG in Sodium Chlor 0.9% Inj 100 ML IV.SIG SCH (09:07)
--- NOTE | 2018-02-21 09:15 | P.DS ---
Date of admission: 02/07/18 22:23 Primary care physician: UNKNOWN Anticipated date of discharge: 02/21/18 Brief History from admission: 27-year-old female with past medical history significant of alcohol use disorder presents for an evaluation of abdominal crampy pain, nausea, vomiting and diarrhea. Her diarrhea as well as nausea vomiting are watery in character. She has been also anxious, with some palpitations. In the emergency department she was found to be in severe anion gap metabolic acidosis. DS: Diagnosis - Discharge Diagnosis (1) Increased anion gap metabolic acidosis Status: Acute (2) Dehydration Status: Acute (3) Acute pancreatitis Status: Acute (4) High serum osmolar gap Status: Acute (5) Hypokalemia Status: Acute DS: Medications - Discharge Medications Prescriptions: famotidine 20 mg PO BID #60 tab oxycodone-acetaminophen 1 tab PO Q4H PRN 3 Days tab PRN Reason: Pain potassium chloride 20 meq PO DAILY #7 tab DS: Summary Hospital Course: Anion gap metabolic acidosis Unable to rule out ethylene glycol toxicity in patient who is a poor historian with severe symptoms. Discussed with poison control who recommended initiation of Fomepizole and hemodialysis. Nephrology was consulted. Right IJ Vas-Cath placed and she underwent HD on 02/08. Osmolar and anion gap have closed. We stopped fomepizole. Vascath was removed. We replaced her electrolytes per electrolyte replacement protocol. She will be discharged on potassium chloride. She will follow up with her PCP. She will have a repeat BMP as an outpt. Acute pancreatitis/Transaminitis/Hepatic steatosis CT abdomen and pelvis WO IV contrast (02/07): Findings characteristic of acute pancreatitis with diffuse pancreatic enlargement, induration of the peripancreatic fat and the fat of the mesentery extending into the right lower quadrant, and mild free fluid along Gerota's fascia and right paracolic gutter; Severe steatosis of the liver; No calcified gallstones. Abdominal ultrasound with fatty infiltration of liver. Lipase was markedly elevated. She received IVFs. Her diet was slowly advanced by GI. She received pain control as needed. She will follow up with GI as an outpt. GIB Rectal bleeding reported per patient. We monitored her CBC. GI was consulted. Colonoscopy was negative. She will follow up with GI as an outpt. EtOH withdrawals/Acute metabolic encephalopathy CT brain 2negative. She received thiamine/folate acid/multivitamin supplementation. Previously received increased doses of folic acid/pyridoxine per poison control recommendations. She was placed on CIWA protocol. She received cessation instruction. - Time Spent with Patient Total time spent providing and/or coordinating discharge services: Greater than 30 minutes Exam Vital signs: Vital Signs 02/20/18 11:00 02/20/18 12:00 02/20/18 16:00 Temperature 98.3 F 98.6 F Pulse Rate 95 H 83 Respiratory Rate 10 L 18 16 Blood Pressure 124/79 109/57 L Pulse Oximetry 97 98 02/20/18 18:41 02/20/18 20:00 02/20/18 20:50 Temperature 98.8 F Pulse Rate 88 Respiratory Rate 18 16 4 L Blood Pressure 107/65 Pulse Oximetry 97 02/21/18 00:00 02/21/18 04:00 Temperature 98.8 F 98.4 F Pulse Rate 92 H 78 Respiratory Rate 15 15 Blood Pressure 110/61 105/64 Pulse Oximetry 97 99 Intake & Output 02/20/18 02/21/18 02/21/18 18:59 06:59 18:59 Intake Total 2561 / 2561 960 / 960 Balance 2561 / 2561 960 / 960 Weight 71.7 kg Intake: IV 1121 / 1121 KCl Inj 40 MEQ In 1/2 Normal 1020 / 1020 Saline Inj 1,000 ML @ 100 mls/ hr IV.CONT .[id number] [facility] Rx#: [id number] Thiamine Inj 100 MG In NS Inj 101 / 101 100 ML @ 100 mls/hr IV.SIG DAILY [facility] Rx#:[id number] Oral 1440 / 1440 960 / 960 Other: # Voids 11 3 Date of Last Bowel Movement 02/20/18 02/20/18 # Bowel Movements 3 Narrative: GENERAL: No acute distress. SKIN: No rash. CARDIOVASCULAR: Regular, tachycardic. No murmurs rubs or gallops. RESPIRATORY: No accessory muscle use. Clear to auscultation. Breath sounds equal bilaterally. GASTROINTESTINAL: Bowel sounds present. Abdomen soft, epigastric tenderness. MUSCULOSKELETAL: Extremities without clubbing, cyanosis, or edema. No obvious deformities. NEUROLOGICAL: Awake alert and oriented. Moves all extremities spontaneously. No focal deficit. Results Procedures completed during hospitalization: Colonoscopy Labs on day of discharge: Labs from last 24 hours 02/21/18 02/20/18 02/20/18 08:30 20:35 17:24 POC Glucose 105 150 H 120 H 02/20/18 12:08 POC Glucose 91 - Impressions ITS Impressions Abdomen/Pelvis CT 02/07/18 20:22 CONCLUSION: 1. Findings characteristic of acute pancreatitis with diffuse pancreatic enlargement, induration of the peripancreatic fat and the fat of the mesentery extending into the right lower quadrant, and mild free fluid along Gerota's fascia and right paracolic gutter. 2. Severe steatosis of the liver. 3. No calcified gallstones. Head CT 02/07/18 20:22 CONCLUSION: 1. Negative noncontrast CT brain. Abdomen Ultrasound 02/08/18 00:00 CONCLUSION: Echogenic liver compatible with fatty infiltration or hepatocellular disease. Chest X-Ray 02/08/18 09:46 CONCLUSION: 1. Right IJ catheter in the right atrium without pneumothorax. 2. Otherwise, no acute abnormality. Discharge Plan - Discharge Disposition Patient Disposition: 01 Discharge Home - Discharge Condition Condition: Stable - Discharge Order Discharge Orders: Discharge Order (Routine); Ordered 02/21/18 Ordered By: Adriel Victor - Discharge Details Anticipated Discharge Date: 02/21/18 - Physicians Team Primary Care Provider: UNKNOWN, Attending Provider: Adriel Victor Other Providers: Joanne Harvey MD
[2018-02-21 11:00] LABS: Albumin 3.1 g/dL (3.4-5.0); Anion Gap 11 meq/L (5-15); Aspartate Aminotransferase 154 U/L (15-37); Blood Urea Nitrogen 5 mg/dL (7-18); Calcium 9.2 mg/dL (8.5-10.1); Carbon Dioxide 25.5 meq/L (21.0-32.0); Chloride 105 meq/L (98-107); Glomerular Filtration Rate Greater Than 89 mL/min (>89); Potassium 3.5 meq/L (3.5-5.1); Sodium 141 meq/L (136-145)
[2018-02-21 11:14] LABS: Alanine Aminotransferase 43 U/L (10-53); Alkaline Phosphatase 305 U/L (45-117); Glucose,Random 106 mg/dL (74-106); Lipase 2542 U/L (73-393); Total Protein 7.7 g/dL (6.4-8.2)
== END 2018-02-21 11:48 | disposition home or self-care (01) ==
LOC: PHED 16:47 → PHEDA 22:23 → N03 02-08 03:36 → N06 02-11 00:19
PROVIDERS: ADMIT Hospitalist; ATTEND Hospitalist
PROC: COLONOS (2018-02-18 12:08)